=== PATIENT | male | born 1965 | race Caucasian/White ===

== ENCOUNTER → 2023-04-11 | Emergency (ER) | payer MEDICARE ==
[~2023-04-11] MED LIST: HYDROCODONE/APAP 10/325 TAB ONE; KETOROLAC 30 MG/ML INJ ONE; dexAMETHasone 10 MG/ML VIAL ONE
--- OUTSIDE RECORDS SUMMARY | 2023-04-11 14:05 | XMS REPORT | Continuity of Care Document ---
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 as needed for Cough. [facility] benzonatate (TESSALON PERLES) 100 mg capsule 3-0 3- 00:00: 00 Yes [id number] 100mg Take 1 capsule by mouth every 8 (eight) hours as needed for Cough. [facility] benzonatate (TESSALON PERLES) 100 mg capsule 3-0 3- 00:00: 00 Yes [id number] 100mg Take 1 capsule by mouth every 8 (eight) hours as needed for Cough. [facility] benzonatate (TESSALON PERLES) 100 mg capsule 3-0 3 00:00: 00 Yes [id number] 100mg Take 1 capsule by mouth every 8 (eight) hours as needed for Cough. [facility] benzonatate (TESSALON PERLES) 100 mg capsule 3-0 3 00:00: 00 Yes [id number] 100mg Take 1 capsule by mouth every 8 (eight) hours as needed for Cough. [facility] benzonatate (TESSALON PERLES) 100 mg capsule 3-0 3 00:00: 00 Yes [id number] 100mg Take 1 capsule by mouth every 8 (eight) hours as needed for Cough. [facility] benzonatate (TESSALON PERLES) 100 mg capsule 3-0 3 00:00: 00 Yes [id number] 100mg Take 1 capsule by mouth every 8 (eight) hours as needed for Cough. [facility] benzonatate (TESSALON PERLES) 100 mg capsule 3-0 3- 00:00: 00 Yes [id number] 100mg Take 1 capsule by mouth every 8 (eight) hours as needed for Cough. [facility] benzonatate (TESSALON PERLES) 100 mg capsule 3-0 3-07 00:00: 00 Yes [id number] 100mg Take 1 capsule by mouth every 8 (eight) hours as needed for Cough. [facility] benzonatate (TESSALON PERLES) 100 mg capsule 3 00:00: 00 Yes [id number] 100mg Take 1 capsule by mouth every 8 (eight) hours as needed for Cough. [facility] benzonatate (TESSALON PERLES) 100 mg capsule 04-25 00:00: 00 Yes [id number] 100mg Take 1 capsule by mouth every 8 (eight) hours as needed for Cough. [facility] azithromyci n (ZITHROMAX Z-LAZARO) 250 mg tablet 04-25 00:00: 00 08-25 00:00 :00 No [id number] 250mg Take 1 tablet by mouth SEE-INSTRU CTIONS. [facility] methylPREDN ISolone (MEDROL, LAZARO,) 4 mg tablets 04-25 00:00: 00 08-25 00:00 :00 No [id number] Take by mouth SEE-INSTRU CTIONS. follow package directions [facility] azithromyci n (ZITHROMAX Z-LAZARO) 250 mg tablet 04-25 00:00: 00 08-25 00:00 :00 No [id number] 250mg Take 1 tablet by mouth SEE-INSTRU CTIONS. [facility] methylPREDN ISolone (MEDROL, LAZARO,) 4 mg tablets 04-25 00:00: 00 08-25 00:00 :00 No [id number] Take by mouth SEE-INSTRU CTIONS. follow package directions [facility] meloxicam 15 mg tablet 03-07 00:00: 00 Yes [id number] 15mg Take 1 tablet by mouth in the morning. [facility] meloxicam 15 mg tablet 2022-0 03-07 00:00: 00 Yes [id number] 15mg Take 1 tablet by mouth in the morning. [facility] meloxicam 15 mg tablet 2022-0 03-07 00:00: 00 Yes [id number] 15mg Take 1 tablet by mouth in the morning. [facility] meloxicam 15 mg tablet 0 1-17 00:00: 00 Yes [id number] 15mg Take 1 tablet by mouth in the morning. [facility] 3-0 -17 00:00: 00 Yes [id number] 15mg Take 1 tablet by mouth in the morning. [facility] mg tablet 3-0 17 00:00: 00 Yes [id number] 15mg Take 1 tablet by mouth in the morning. [facility] mg tablet 3-0 17 00:00: 00 Yes [id number] 15mg Take 1 tablet by mouth in the morning. [facility] meloxicam 15 mg tablet 3-0 -17 00:00: 00 Yes [id number] 15mg Take 1 tablet by mouth in the morning. [facility] meloxicam 15 mg tablet 3-0 -17 00:00: 00 Yes [id number] 15mg Take 1 tablet by mouth in the morning. [facility] meloxicam 15 mg tablet 3-0 17 00:00: 00 Yes [id number] 15mg Take 1 tablet by mouth in the morning. [facility] meloxicam 15 mg tablet 3-0 17 00:00: 00 Yes [id number] 15mg Take 1 tablet by mouth in the morning. [facility] meloxicam 15 mg tablet 3-0 17 00:00: 00 Yes [id number] 15mg Take 1 tablet by mouth in the morning. [facility] meloxicam 15 mg tablet 3-0 -17 00:00: 00 Yes [id number] 15mg Take 1 tablet by mouth in the morning. [facility] meloxicam 15 mg tablet 3-0 -17 00:00: 00 Yes [id number] 15mg Take 1 tablet by mouth in the morning. [facility] meloxicam 15 mg tablet 3-0 -17 00:00: 00 Yes [id number] 15mg Take 1 tablet by mouth in the morning. [facility] meloxicam 15 mg tablet 3-0 -17 00:00: 00 Yes [id number] 15mg Take 1 tablet by mouth in the morning. [facility] mg tablet 3-0 -17 00:00: 00 Yes [id number] 15mg Take 1 tablet by mouth in the morning. [facility] meloxicam 15 mg tablet 2022-0 17 00:00: 00 Yes [id number] 15mg Take 1 tablet by mouth in the morning. [facility] mg tablet 3-0 17 00:00: 00 Yes [id number] 15mg Take 1 tablet by mouth in the morning. [facility] mg tablet 3-0 17 00:00: 00 Yes [id number] 15mg Take 1 tablet by mouth in the morning. [facility] meloxicam 15 mg tablet 2022-0 -17 00:00: 00 Yes [id number] 15mg Take 1 tablet by mouth in the morning. [facility] meloxicam 15 mg tablet 3-0 17 00:00: 00 Yes [id number] 15mg Take 1 tablet by mouth in the morning. [facility] meloxicam 15 mg tablet 3-0 17 00:00: 00 Yes [id number] 15mg Take 1 tablet by mouth in the morning. [facility] meloxicam 15 mg tablet 3-0 17 00:00: 00 Yes [id number] 15mg Take 1 tablet by mouth in the morning. [facility] meloxicam 15 mg tablet 3-0 17 00:00: 00 Yes [id number] 15mg Take 1 tablet by mouth in the morning. [facility] meloxicam 15 mg tablet 3-0 17 00:00: 00 Yes [id number] 15mg Take 1 tablet by mouth in the morning. [facility] meloxicam 15 mg tablet 3-0 -17 00:00: 00 Yes [id number] 15mg Take 1 tablet by mouth in the morning. [facility] meloxicam 15 mg tablet 3-0 -17 00:00: 00 Yes [id number] 15mg Take 1 tablet by mouth in the morning. [facility] meloxicam 15 mg tablet 0 17 00:00: 00 09-27 00:00 :00 No [id number] 15mg Take 1 tablet by mouth in the morning. [facility] meloxicam 15 mg tablet 0 17 00:00: 00 09-27 00:00 :00 No [id number] 15mg Take 1 tablet by mouth in the morning. [facility] meloxicam 15 mg tablet 0 03-07 00:00: 00 09-27 00:00 :00 No [id number] 15mg Take 1 tablet by mouth in the morning. [facility] meloxicam 15 mg tablet 03-07 00:00: 00 09-27 00:00 :00 No [id number] 15mg Take 1 tablet by mouth in the morning. [facility] gabapentin 800 mg tablet 03-07 00:00: 00 08-04 00:00 :00 No [id number] 800mg Take 1 tablet by mouth in the morning and 1 tablet at noon and 1 tablet in the evening. Do all this for 30 days. [facility] gabapentin 800 mg tablet 0 03-07 00:00: 00 08-04 00:00 :00 No [id number] 800mg Take 1 tablet by mouth in the morning and 1 tablet at noon and 1 tablet in the evening. Do all this for 30 days. [facility] gabapentin 800 mg tablet 0 17 00:00: 00 04-07 05:59 :00 No [id number] 800mg Take 1 tablet by mouth in the morning and 1 tablet at noon and 1 tablet in the evening. Do all this for 30 days. [facility] gabapentin 800 mg tablet 0 17 00:00: 00 04-07 05:59 :00 No [id number] 800mg Take 1 tablet by mouth in the morning and 1 tablet at noon and 1 tablet in the evening. Do all this for 30 days. [facility] gabapentin 800 mg tablet 0 117 00:00: 00 04-07 05:59 :00 No [id number] 800mg Take 1 tablet by mouth in the morning and 1 tablet at noon and 1 tablet in the evening. Do all this for 30 days. [facility] gabapentin 800 mg tablet 2022-0 1-17 00:00: 00 04-07 05:59 :00 No [id number] 800mg Take 1 tablet by mouth in the morning and 1 tablet at noon and 1 tablet in the evening. Do all this for 30 days. [facility] gabapentin 800 mg tablet 2022-0 17 00:00: 00 04-07 05:59 :00 No [id number] 800mg Take 1 tablet by mouth in the morning and 1 tablet at noon and 1 tablet in the evening. Do all this for 30 days. [facility] gabapentin 800 mg tablet 2022-0 17 00:00: 00 04-07 05:59 :00 No [id number] 800mg Take 1 tablet by mouth in the morning and 1 tablet at noon and 1 tablet in the evening. Do all this for 30 days. [facility] gabapentin 800 mg tablet 2022-0 17 00:00: 00 04-07 05:59 :00 No [id number] 800mg Take 1 tablet by mouth in the morning and 1 tablet at noon and 1 tablet in the evening. Do all this for 30 days. [facility] gabapentin 800 mg tablet 2022-0 17 00:00: 00 04-07 05:59 :00 No [id number] 800mg Take 1 tablet by mouth in the morning and 1 tablet at noon and 1 tablet in the evening. Do all this for 30 days. [facility] gabapentin 800 mg tablet 2022-0 17 00:00: 00 04-07 05:59 :00 No [id number] 800mg Take 1 tablet by mouth in the morning and 1 tablet at noon and 1 tablet in the evening. Do all this for 30 days. [facility] gabapentin 800 mg tablet 3-0 17 00:00: 00 04-07 05:59 :00 No [id number] 800mg Take 1 tablet by mouth in the morning and 1 tablet at noon and 1 tablet in the evening. Do all this for 30 days. [facility] gabapentin 800 mg tablet 03-07 00:00: 00 04-07 05:59 :00 No [id number] 800mg Take 1 tablet by mouth in the morning and 1 tablet at noon and 1 tablet in the evening. Do all this for 30 days. [facility] gabapentin 800 mg tablet 03-07 00:00: 00 04-07 05:59 :00 No [id number] 800mg Take 1 tablet by mouth in the morning and 1 tablet at noon and 1 tablet in the evening. Do all this for 30 days. [facility] gabapentin 800 mg tablet 03-07 00:00: 00 04-07 05:59 :00 No [id number] 800mg Take 1 tablet by mouth in the morning and 1 tablet at noon and 1 tablet in the evening. Do all this for 30 days. [facility] albuterol 90 mcg/actuati on inhaler 02-24 00:00: 00 Yes INHALE 2 PUFFS BY MOUTH EVERY 6 HOURS NEEDED FOR WHEEZING OR SHORTNESS OF BREATH [facility] albuterol 90 mcg/actuati on inhaler 02-24 00:00: 00 Yes INHALE 2 PUFFS BY MOUTH EVERY 6 HOURS NEEDED FOR WHEEZING OR SHORTNESS OF BREATH [facility] albuterol 90 mcg/actuati on inhaler - 00:00: 00 Yes INHALE 2 PUFFS BY MOUTH EVERY 6 HOURS NEEDED FOR WHEEZING OR SHORTNESS OF BREATH [facility] albuterol 90 mcg/actuati on inhaler 0 - 00:00: 00 Yes INHALE 2 PUFFS BY MOUTH EVERY 6 HOURS NEEDED FOR WHEEZING OR SHORTNESS OF BREATH [facility] albuterol 90 mcg/actuati on inhaler 0 02-24 00:00: 00 Yes INHALE 2 PUFFS BY MOUTH EVERY 6 HOURS NEEDED FOR WHEEZING OR SHORTNESS OF BREATH [facility] albuterol 90 mcg/actuati on inhaler - 00:00: 00 Yes INHALE 2 PUFFS BY MOUTH EVERY 6 HOURS NEEDED FOR WHEEZING OR SHORTNESS OF BREATH [facility] albuterol 90 mcg/actuati on inhaler 1- 00:00: 00 Yes INHALE 2 PUFFS BY MOUTH EVERY 6 HOURS NEEDED FOR WHEEZING OR SHORTNESS OF BREATH [facility] albuterol 90 mcg/actuati on inhaler 1- 00:00: 00 Yes INHALE 2 PUFFS BY MOUTH EVERY 6 HOURS NEEDED FOR WHEEZING OR SHORTNESS OF BREATH [facility] albuterol 90 mcg/actuati on inhaler 1- 00:00: 00 Yes INHALE 2 PUFFS BY MOUTH EVERY 6 HOURS NEEDED FOR WHEEZING OR SHORTNESS OF BREATH [facility] albuterol 90 mcg/actuati on inhaler - 00:00: 00 Yes INHALE 2 PUFFS BY MOUTH EVERY 6 HOURS NEEDED FOR WHEEZING OR SHORTNESS OF BREATH [facility] albuterol 90 mcg/actuati on inhaler - 00:00: 00 Yes INHALE 2 PUFFS BY MOUTH EVERY 6 HOURS NEEDED FOR WHEEZING OR SHORTNESS OF BREATH [facility] albuterol 90 mcg/actuati on inhaler 1- 00:00: 00 Yes INHALE 2 PUFFS BY MOUTH EVERY 6 HOURS NEEDED FOR WHEEZING OR SHORTNESS OF BREATH [facility] albuterol 90 mcg/actuati on inhaler 1- 00:00: 00 Yes INHALE 2 PUFFS BY MOUTH EVERY 6 HOURS NEEDED FOR WHEEZING OR SHORTNESS OF BREATH [facility] albuterol 90 mcg/actuati on inhaler 1- 00:00: 00 Yes INHALE 2 PUFFS BY MOUTH EVERY 6 HOURS NEEDED FOR WHEEZING OR SHORTNESS OF BREATH [facility] albuterol 90 mcg/actuati on inhaler 1- 00:00: 00 Yes INHALE 2 PUFFS BY MOUTH EVERY 6 HOURS NEEDED FOR WHEEZING OR SHORTNESS OF BREATH [facility] albuterol 90 mcg/actuati on inhaler 1-06 00:00: 00 Yes INHALE 2 PUFFS BY MOUTH EVERY 6 HOURS NEEDED FOR WHEEZING OR SHORTNESS OF BREATH [facility] albuterol 90 mcg/actuati on inhaler 1- 00:00: 00 Yes INHALE 2 PUFFS BY MOUTH EVERY 6 HOURS NEEDED FOR WHEEZING OR SHORTNESS OF BREATH [facility] albuterol 90 mcg/actuati on inhaler 1- 00:00: 00 Yes INHALE 2 PUFFS BY MOUTH EVERY 6 HOURS NEEDED FOR WHEEZING OR SHORTNESS OF BREATH [facility] albuterol 90 mcg/actuati on inhaler 1- 00:00: 00 Yes INHALE 2 PUFFS BY MOUTH EVERY 6 HOURS NEEDED FOR WHEEZING OR SHORTNESS OF BREATH [facility] albuterol 90 mcg/actuati on inhaler - 00:00: 00 Yes INHALE 2 PUFFS BY MOUTH EVERY 6 HOURS NEEDED FOR WHEEZING OR SHORTNESS OF BREATH [facility] albuterol 90 mcg/actuati on inhaler - 00:00: 00 Yes INHALE 2 PUFFS BY MOUTH EVERY 6 HOURS NEEDED FOR WHEEZING OR SHORTNESS OF BREATH [facility] albuterol 90 mcg/actuati on inhaler 1- 00:00: 00 Yes INHALE 2 PUFFS BY MOUTH EVERY 6 HOURS NEEDED FOR WHEEZING OR SHORTNESS OF BREATH [facility] albuterol 90 mcg/actuati on inhaler 1- 00:00: 00 Yes INHALE 2 PUFFS BY MOUTH EVERY 6 HOURS NEEDED FOR WHEEZING OR SHORTNESS OF BREATH [facility] albuterol 90 mcg/actuati on inhaler 1- 00:00: 00 Yes INHALE 2 PUFFS BY MOUTH EVERY 6 HOURS NEEDED FOR WHEEZING OR SHORTNESS OF BREATH [facility] albuterol 90 mcg/actuati on inhaler 1- 00:00: 00 Yes INHALE 2 PUFFS BY MOUTH EVERY 6 HOURS NEEDED FOR WHEEZING OR SHORTNESS OF BREATH [facility] albuterol 90 mcg/actuati on inhaler 1-06 00:00: 00 Yes INHALE 2 PUFFS BY MOUTH EVERY 6 HOURS NEEDED FOR WHEEZING OR SHORTNESS OF BREATH [facility] albuterol 90 mcg/actuati on inhaler 1- 00:00: 00 Yes INHALE 2 PUFFS BY MOUTH EVERY 6 HOURS NEEDED FOR WHEEZING OR SHORTNESS OF BREATH [facility] albuterol 90 mcg/actuati on inhaler 1- 00:00: 00 Yes INHALE 2 PUFFS BY MOUTH EVERY 6 HOURS NEEDED FOR WHEEZING OR SHORTNESS OF BREATH [facility] albuterol 90 mcg/actuati on inhaler 1- 00:00: 00 Yes INHALE 2 PUFFS BY MOUTH EVERY 6 HOURS NEEDED FOR WHEEZING OR SHORTNESS OF BREATH [facility] albuterol 90 mcg/actuati on inhaler - 00:00: 00 Yes INHALE 2 PUFFS BY MOUTH EVERY 6 HOURS NEEDED FOR WHEEZING OR SHORTNESS OF BREATH [facility] albuterol 90 mcg/actuati on inhaler - 00:00: 00 Yes INHALE 2 PUFFS BY MOUTH EVERY 6 HOURS NEEDED FOR WHEEZING OR SHORTNESS OF BREATH [facility] albuterol 90 mcg/actuati on inhaler 1- 00:00: 00 Yes INHALE 2 PUFFS BY MOUTH EVERY 6 HOURS NEEDED FOR WHEEZING OR SHORTNESS OF BREATH [facility] albuterol 90 mcg/actuati on inhaler 1- 00:00: 00 Yes INHALE 2 PUFFS BY MOUTH EVERY 6 HOURS NEEDED FOR WHEEZING OR SHORTNESS OF BREATH [facility] albuterol 90 mcg/actuati on inhaler 1- 00:00: 00 Yes INHALE 2 PUFFS BY MOUTH EVERY 6 HOURS NEEDED FOR WHEEZING OR SHORTNESS OF BREATH [facility] albuterol 90 mcg/actuati on inhaler 1- 00:00: 00 Yes INHALE 2 PUFFS BY MOUTH EVERY 6 HOURS NEEDED FOR WHEEZING OR SHORTNESS OF BREATH [facility] albuterol 90 mcg/actuati on inhaler 02-24 00:00: 00 Yes INHALE 2 PUFFS BY MOUTH EVERY 6 HOURS NEEDED FOR WHEEZING OR SHORTNESS OF BREATH [facility] albuterol 90 mcg/actuati on inhaler - 00:00: 00 Yes INHALE 2 PUFFS BY MOUTH EVERY 6 HOURS NEEDED FOR WHEEZING OR SHORTNESS OF BREATH [facility] albuterol 90 mcg/actuati on inhaler 02-24 00:00: 00 Yes INHALE 2 PUFFS BY MOUTH EVERY 6 HOURS NEEDED FOR WHEEZING OR SHORTNESS OF BREATH [facility] albuterol 90 mcg/actuati on inhaler 02-24 00:00: 00 Yes INHALE 2 PUFFS BY MOUTH EVERY 6 HOURS NEEDED FOR WHEEZING OR SHORTNESS OF BREATH [facility] albuterol 90 mcg/actuati on inhaler 02-24 00:00: 00 Yes INHALE 2 PUFFS BY MOUTH EVERY 6 HOURS NEEDED FOR WHEEZING OR [facility]ATH [facility] 02-24 00:00: 00 Yes INHALE 2 PUFFS BY MOUTH EVERY 6 HOURS NEEDED FOR WHEEZING OR SHORTNESS [facility] BREATH [facility]5 [facility] /3 mL (0.083 %) nebulizer solution 2021-02 00:00: 00 Yes [id number] 2.5mg Inhale 3 mL every 4 (four) hours as needed for Wheezing or Shortness of Breath. [facility] albuterol 2.5 mg /3 mL (0.083 %) nebulizer solution 2021-02 00:00: 00 Yes [id number] 2.5mg Inhale 3 mL every 4 (four) hours as needed for Wheezing or Shortness of Breath. [facility] albuterol 2.5 mg /3 mL (0.083 %) nebulizer solution 2021-02 00:00: 00 Yes [id number] 2.5mg Inhale 3 mL every 4 (four) hours as needed for Wheezing or Shortness of Breath. [facility] albuterol 2.5 mg /3 mL (0.083 %) nebulizer solution 2021-02 00:00: 00 Yes [id number] 2.5mg Inhale 3 mL every 4 (four) hours as needed for Wheezing or Shortness of Breath. [facility] albuterol 2.5 mg /3 mL (0.083 %) nebulizer solution 2021-02 00:00: 00 Yes [id number] 2.5mg Inhale 3 mL every 4 (four) hours as needed for Wheezing or Shortness of Breath. [facility] albuterol 2.5 mg /3 mL (0.083 %) nebulizer solution 2021-02 00:00: 00 Yes [id number] 2.5mg Inhale 3 mL every 4 (four) hours as needed for Wheezing or Shortness of Breath. [facility] albuterol 2.5 mg /3 mL (0.083 %) nebulizer solution 2021-02 00:00: 00 Yes [id number] 2.5mg Inhale 3 mL every 4 (four) hours as needed for Wheezing or Shortness of Breath. [facility] albuterol 2.5 mg /3 mL (0.083 %) nebulizer solution 2021-02 00:00: 00 Yes [id number] 2.5mg Inhale 3 mL every 4 (four) hours as needed for Wheezing or Shortness of Breath. [facility] albuterol 2.5 mg /3 mL (0.083 %) nebulizer solution 2021-02 00:00: 00 Yes [id number] 2.5mg Inhale 3 mL every 4 (four) hours as needed for Wheezing or Shortness of Breath. [facility] albuterol 2.5 mg /3 mL (0.083 %) nebulizer solution 2021-02 00:00: 00 Yes [id number] 2.5mg Inhale 3 mL every 4 (four) hours as needed for Wheezing or Shortness of Breath. [facility] albuterol 2.5 mg /3 mL (0.083 %) nebulizer solution 2021-02 00:00: 00 Yes [id number] 2.5mg Inhale 3 mL every 4 (four) hours as needed for Wheezing or Shortness of Breath. [facility] albuterol 2.5 mg /3 mL (0.083 %) nebulizer solution 2021-02 00:00: 00 Yes [id number] 2.5mg Inhale 3 mL every 4 (four) hours as needed for Wheezing or Shortness of Breath. [facility] albuterol 2.5 mg /3 mL (0.083 %) nebulizer solution 2021-02 00:00: 00 Yes [id number] 2.5mg Inhale 3 mL every 4 (four) hours as needed for Wheezing or Shortness of Breath. [facility] albuterol 2.5 mg /3 mL (0.083 %) nebulizer solution 2021-02 00:00: 00 Yes [id number] 2.5mg Inhale 3 mL every 4 (four) hours as needed for Wheezing or Shortness of Breath. [facility] albuterol 2.5 mg /3 mL (0.083 %) nebulizer solution 2021-02 00:00: 00 Yes [id number] 2.5mg Inhale 3 mL every 4 (four) hours as needed for Wheezing or Shortness of Breath. [facility] albuterol 2.5 mg /3 mL (0.083 %) nebulizer solution 2021-02 00:00: 00 Yes [id number] 2.5mg Inhale 3 mL every 4 (four) hours as needed for Wheezing or Shortness of Breath. [facility] albuterol 2.5 mg /3 mL (0.083 %) nebulizer solution 2021-02 00:00: 00 Yes [id number] 2.5mg Inhale 3 mL every 4 (four) hours as needed for Wheezing or Shortness of Breath. [facility] albuterol 2.5 mg /3 mL (0.083 %) nebulizer solution 2021-02 00:00: 00 Yes [id number] 2.5mg Inhale 3 mL every 4 (four) hours as needed for Wheezing or Shortness of Breath. [facility] albuterol 2.5 mg /3 mL (0.083 %) nebulizer solution 2021-02 00:00: 00 Yes [id number] 2.5mg Inhale 3 mL every 4 (four) hours as needed for Wheezing or Shortness of Breath. [facility] albuterol 2.5 mg /3 mL (0.083 %) nebulizer solution 2021-02 00:00: 00 Yes [id number] 2.5mg Inhale 3 mL every 4 (four) hours as needed for Wheezing or Shortness of Breath. [facility] albuterol 2.5 mg /3 mL (0.083 %) nebulizer solution 2021-02 00:00: 00 Yes [id number] 2.5mg Inhale 3 mL every 4 (four) hours as needed for Wheezing or Shortness of Breath. [facility] albuterol 2.5 mg /3 mL (0.083 %) nebulizer solution 2021-02 00:00: 00 Yes [id number] 2.5mg Inhale 3 mL every 4 (four) hours as needed for Wheezing or Shortness of Breath. [facility] albuterol 2.5 mg /3 mL (0.083 %) nebulizer solution 2021-02 00:00: 00 Yes [id number] 2.5mg Inhale 3 mL every 4 (four) hours as needed for Wheezing or Shortness of Breath. [facility] albuterol 2.5 mg /3 mL (0.083 %) nebulizer solution 2021-02 00:00: 00 Yes [id number] 2.5mg Inhale 3 mL every 4 (four) hours as needed for Wheezing or Shortness of Breath. [facility] albuterol 2.5 mg /3 mL (0.083 %) nebulizer solution 2021-02 00:00: 00 Yes [id number] 2.5mg Inhale 3 mL every 4 (four) hours as needed for Wheezing or Shortness of Breath. [facility] albuterol 2.5 mg /3 mL (0.083 %) nebulizer solution 2021-02 00:00: 00 Yes [id number] 2.5mg Inhale 3 mL every 4 (four) hours as needed for Wheezing or Shortness of Breath. [facility] albuterol 2.5 mg /3 mL (0.083 %) nebulizer solution 2021-02 00:00: 00 Yes [id number] 2.5mg Inhale 3 mL every 4 (four) hours as needed for Wheezing or Shortness of Breath. [facility] albuterol 2.5 mg /3 mL (0.083 %) nebulizer solution 2021-02 00:00: 00 Yes [id number] 2.5mg Inhale 3 mL every 4 (four) hours as needed for Wheezing or Shortness of Breath. [facility] albuterol 2.5 mg /3 mL (0.083 %) nebulizer solution 2021-02 00:00: 00 Yes [id number] 2.5mg Inhale 3 mL every 4 (four) hours as needed for Wheezing or Shortness of Breath. [facility] albuterol 2.5 mg /3 mL (0.083 %) nebulizer solution 2021-02 00:00: 00 Yes [id number] 2.5mg Inhale 3 mL every 4 (four) hours as needed for Wheezing or Shortness of Breath. [facility] albuterol 2.5 mg /3 mL (0.083 %) nebulizer solution 2021-02 00:00: 00 Yes [id number] 2.5mg Inhale 3 mL every 4 (four) hours as needed for Wheezing or Shortness of Breath. [facility] albuterol 2.5 mg /3 mL (0.083 %) nebulizer solution 2021-02 00:00: 00 Yes [id number] 2.5mg Inhale 3 mL every 4 (four) hours as needed for Wheezing or Shortness of Breath. [facility] albuterol 2.5 mg /3 mL (0.083 %) nebulizer solution 2021-02 00:00: 00 Yes [id number] 2.5mg Inhale 3 mL every 4 (four) hours as needed for Wheezing or Shortness of Breath. [facility] albuterol 2.5 mg /3 mL (0.083 %) nebulizer solution 2021-02 00:00: 00 Yes [id number] 2.5mg Inhale 3 mL every 4 (four) hours as needed for Wheezing or Shortness of Breath. [facility] albuterol 2.5 mg /3 mL (0.083 %) nebulizer solution 2021-02 00:00: 00 Yes [id number] 2.5mg Inhale 3 mL every 4 (four) hours as needed for Wheezing or Shortness of Breath. [facility] albuterol 2.5 mg /3 mL (0.083 %) nebulizer solution 2021-02 00:00: 00 Yes [id number] 2.5mg Inhale 3 mL every 4 (four) hours as needed for Wheezing or Shortness of Breath. [facility] albuterol 2.5 mg /3 mL (0.083 %) nebulizer solution 2021-02 00:00: 00 Yes [id number] 2.5mg Inhale 3 mL every 4 (four) hours as needed for Wheezing or Shortness of Breath. [facility] /3 mL (0.083 %) nebulizer solution 2021-02 00:00: 00 Yes [id number] 2.5mg Inhale 3 mL every 4 (four) hours as needed for Wheezing or Shortness of Breath. [facility] albuterol 2.5 mg /3 mL (0.083 %) nebulizer solution 2021-02 00:00: 00 Yes [id number] 2.5mg Inhale 3 mL every 4 (four) hours as needed for Wheezing or Shortness of Breath. [facility] albuterol 2.5 mg /3 mL (0.083 %) nebulizer solution 2021-02 00:00: 00 Yes [id number] 2.5mg Inhale 3 mL every 4 (four) hours as needed for Wheezing or Shortness of Breath. [facility] albuterol 2.5 mg /3 mL (0.083 %) nebulizer solution 2021-02 00:00: 00 Yes [id number] 2.5mg Inhale 3 mL every 4 (four) hours as needed for Wheezing or Shortness of Breath. [facility] albuterol 90 mcg/actuati on inhaler 2021-02 00:00: 00 Yes 2{puff} Inhale 2 Puffs every 6 (six) hours as needed for Wheezing or Shortness of Breath. [facility] albuterol 2.5 mg /3 mL (0.083 %) nebulizer solution 2021-02 00:00: 00 Yes [id number] 2.5mg Inhale 3 mL every 4 (four) hours as needed for Wheezing or Shortness of Breath. [facility] albuterol 90 mcg/actuati on inhaler 2021-02 00:00: 00 Yes 2{puff} Inhale 2 Puffs every 6 (six) hours as needed for Wheezing or Shortness of Breath. [facility] albuterol 2.5 mg /3 mL (0.083 %) nebulizer solution 2021-02 00:00: 00 Yes [id number] 2.5mg Inhale 3 mL every 4 (four) hours as needed for Wheezing or Shortness of Breath. [facility] albuterol 90 mcg/actuati on inhaler 2021-02 00:00: 00 Yes 2{puff} Inhale 2 Puffs every 6 (six) hours as needed for Wheezing or Shortness of Breath. [facility] albuterol 2.5 mg /3 mL (0.083 %) nebulizer solution 2021-02 00:00: 00 Yes [id number] 2.5mg Inhale 3 mL every 4 (four) hours as needed for Wheezing or Shortness of Breath. [facility] albuterol 90 mcg/actuati on inhaler 2021-02 00:00: 00 Yes 2{puff} Inhale 2 Puffs every 6 (six) hours as needed for Wheezing or Shortness of Breath. [facility] albuterol 2.5 mg /3 mL (0.083 %) nebulizer solution 2021-02 00:00: 00 Yes [id number] 2.5mg Inhale 3 mL every 4 (four) hours as needed for Wheezing or Shortness of Breath. [facility] albuterol 90 mcg/actuati on inhaler 2021-02 00:00: 00 Yes 2{puff} Inhale 2 Puffs every 6 (six) hours as needed for Wheezing or Shortness of Breath. [facility] albuterol 2.5 mg /3 mL (0.083 %) nebulizer solution 2021-02 00:00: 00 Yes [id number] 2.5mg Inhale 3 mL every 4 (four) hours as needed for Wheezing or Shortness of Breath. [facility] albuterol 90 mcg/actuati on inhaler 2021-02 00:00: 00 Yes 2{puff} Inhale 2 Puffs every 6 (six) hours as needed for Wheezing or Shortness of Breath. [facility] albuterol 2.5 mg /3 mL (0.083 %) nebulizer solution 2021-02 00:00: 00 Yes [id number] 2.5mg Inhale 3 mL every 4 (four) hours as needed for Wheezing or Shortness of Breath. [facility] albuterol 90 mcg/actuati on inhaler 2021-02 00:00: 00 02-24 00:00 :00 No 2{puff} Inhale 2 Puffs every 6 (six) hours as needed for Wheezing or Shortness of Breath. [facility] meloxicam 15 mg tablet 2021-02 00:00: 00 Yes [id number] 15mg Take 1 tablet by mouth in the morning. [facility] meloxicam 15 mg tablet 2021-02 00:00: 00 Yes [id number] 15mg Take 1 tablet by mouth in the morning. [facility] meloxicam 15 mg tablet 2021-02 00:00: 00 Yes [id number] 15mg Take 1 tablet by mouth in the morning. [facility] 2021-02 00:00: 00 Yes [id number] 15mg Take 1 tablet by mouth in the morning. [facility] meloxicam 15 mg tablet 2021-02 00:00: 00 Yes [id number] 15mg Take 1 tablet by mouth in the morning. [facility] meloxicam 15 mg tablet 2021-02 00:00: 00 Yes [id number] 15mg Take 1 tablet by mouth in the morning. [facility] meloxicam 15 mg tablet 2021-02 00:00: 00 Yes [id number] 15mg Take 1 tablet by mouth in the morning. [facility] meloxicam 15 mg tablet 2021-02 00:00: 00 Yes [id number] 15mg Take 1 tablet by mouth in the morning. [facility] meloxicam 15 mg tablet 2021-02 00:00: 00 Yes [id number] 15mg Take 1 tablet by mouth in the morning. [facility] meloxicam 15 mg tablet 2021-02 00:00: 00 Yes [id number] 15mg Take 1 tablet by mouth in the morning. [facility] meloxicam 15 mg tablet 2021-02 00:00: 00 Yes [id number] 15mg Take 1 tablet by mouth in the morning. [facility] meloxicam 15 mg tablet 2021-02 00:00: 00 03-07 00:00 :00 No [id number] 15mg Take 1 tablet by mouth in the morning. [facility] meloxicam 15 mg tablet 2021-02 00:00: 00 03-07 00:00 :00 No [id number] 15mg Take 1 tablet by mouth in the morning. [facility] meloxicam 15 mg tablet 2021-02 00:00: 00 03-07 00:00 :00 No [id number] 15mg Take 1 tablet by mouth in the morning. [facility] meloxicam 15 mg tablet 2021-02 2 00:00: 00 03-07 00:00 :00 No [id number] 15mg Take 1 tablet by mouth in the morning. [facility] meloxicam 15 mg tablet 2021-02 2- 00:00: 00 03-07 00:00 :00 No [id number] 15mg Take 1 tablet by mouth in the morning. [facility] HOME NEBULIZER PLUS SIDESTREAM Yanna 2021-02 00:00: 00 Yes USE DIRECTED EVERY 6 HOURS NEEDED [facility] HOME NEBULIZER PLUS SIDESTREAM Yanna 2021-02 00:00: 00 Yes USE DIRECTED EVERY 6 HOURS NEEDED [facility] HOME NEBULIZER PLUS SIDESTREAM Yanna 2021-02 00:00: 00 Yes USE DIRECTED EVERY 6 HOURS NEEDED [facility] HOME NEBULIZER PLUS SIDESTREAM Yanna 2021-02 00:00: 00 Yes USE DIRECTED EVERY 6 HOURS NEEDED [facility] HOME NEBULIZER PLUS SIDESTREAM Yanna 2021-02 00:00: 00 Yes USE DIRECTED EVERY 6 HOURS NEEDED [facility] HOME NEBULIZER PLUS SIDESTREAM Yanna 2021-02 00:00: 00 Yes USE DIRECTED EVERY 6 HOURS NEEDED [facility] HOME NEBULIZER PLUS SIDESTREAM Yanna 2021-02 00:00: 00 Yes USE DIRECTED EVERY 6 HOURS NEEDED [facility] HOME NEBULIZER PLUS SIDESTREAM Yanna 2021-02 00:00: 00 Yes USE DIRECTED EVERY 6 HOURS NEEDED [facility] HOME NEBULIZER PLUS SIDESTREAM Yanna 2021-02 00:00: 00 Yes USE DIRECTED EVERY 6 HOURS NEEDED [facility] HOME NEBULIZER PLUS SIDESTREAM Yanna 2021-02 00:00: 00 Yes USE DIRECTED EVERY 6 HOURS NEEDED [facility] HOME NEBULIZER PLUS SIDESTREAM Yanna 2021-02 00:00: 00 Yes USE DIRECTED EVERY 6 HOURS NEEDED [facility] HOME NEBULIZER PLUS SIDESTREAM Yanna 2021-02 00:00: 00 Yes USE DIRECTED EVERY 6 HOURS NEEDED [facility] HOME NEBULIZER PLUS SIDESTREAM Yanna 2021-02 00:00: 00 Yes USE DIRECTED EVERY 6 HOURS NEEDED [facility] HOME NEBULIZER PLUS SIDESTREAM Yanna 2021-02 00:00: 00 Yes USE DIRECTED EVERY 6 HOURS NEEDED [facility] HOME NEBULIZER PLUS SIDESTREAM Yanna 2021-02 00:00: 00 Yes USE DIRECTED EVERY 6 HOURS NEEDED [facility] HOME NEBULIZER PLUS SIDESTREAM Yanna 2021-02 00:00: 00 Yes USE DIRECTED EVERY 6 HOURS NEEDED [facility] HOME NEBULIZER PLUS SIDESTREAM Yanna 2021-02 00:00: 00 Yes USE DIRECTED EVERY 6 HOURS NEEDED [facility] HOME NEBULIZER PLUS SIDESTREAM Yanna 2021-02 00:00: 00 Yes USE DIRECTED EVERY 6 HOURS NEEDED [facility] HOME NEBULIZER PLUS SIDESTREAM Yanna 2021-02 00:00: 00 Yes USE DIRECTED EVERY 6 HOURS NEEDED [facility] HOME NEBULIZER PLUS SIDESTREAM Yanna 2021-02 00:00: 00 Yes USE DIRECTED EVERY 6 HOURS NEEDED [facility] HOME NEBULIZER PLUS SIDESTREAM Yanna 2021-02 00:00: 00 Yes USE DIRECTED EVERY 6 HOURS NEEDED [facility] HOME NEBULIZER PLUS SIDESTREAM Yanna 2021-02 00:00: 00 Yes USE DIRECTED EVERY 6 HOURS NEEDED [facility] HOME NEBULIZER PLUS SIDESTREAM Yanna 2021-02 00:00: 00 Yes USE DIRECTED EVERY 6 HOURS NEEDED [facility] HOME NEBULIZER PLUS SIDESTREAM Yanna 2021-02 00:00: 00 Yes USE DIRECTED EVERY 6 HOURS NEEDED [facility] HOME NEBULIZER PLUS SIDESTREAM Yanna 2021-02 00:00: 00 Yes USE DIRECTED EVERY 6 HOURS NEEDED [facility] HOME NEBULIZER PLUS SIDESTREAM Yanna 2021-02 00:00: 00 Yes USE DIRECTED EVERY 6 HOURS NEEDED [facility] HOME NEBULIZER PLUS SIDESTREAM Yanna 2021-02 00:00: 00 Yes USE DIRECTED EVERY 6 HOURS NEEDED [facility] HOME NEBULIZER PLUS SIDESTREAM Yanna 2021-02 00:00: 00 Yes USE DIRECTED EVERY 6 HOURS NEEDED [facility] HOME NEBULIZER PLUS SIDESTREAM Yanna 2021-02 00:00: 00 Yes USE DIRECTED EVERY 6 HOURS NEEDED [facility] HOME NEBULIZER PLUS SIDESTREAM Yanna 2021-02 00:00: 00 Yes USE DIRECTED EVERY 6 HOURS NEEDED [facility] HOME NEBULIZER PLUS SIDESTREAM Yanna 2021-02 00:00: 00 Yes USE DIRECTED EVERY 6 HOURS NEEDED [facility] HOME NEBULIZER PLUS SIDESTREAM Yanna 2021-02 00:00: 00 Yes USE DIRECTED EVERY 6 HOURS NEEDED [facility] HOME NEBULIZER PLUS SIDESTREAM Yanna 2021-02 00:00: 00 Yes USE DIRECTED EVERY 6 HOURS NEEDED [facility] HOME NEBULIZER PLUS SIDESTREAM Yanna 2021-02 00:00: 00 Yes USE DIRECTED EVERY 6 HOURS NEEDED [facility] [place] HOME NEBULIZER PLUS SIDESTREAM Yanna 2021-02 00:00: 00 Yes USE DIRECTED EVERY 6 HOURS NEEDED [facility] HOME NEBULIZER PLUS SIDESTREAM Yanna 2021-02 00:00: 00 Yes USE DIRECTED EVERY 6 HOURS NEEDED [facility] HOME NEBULIZER PLUS SIDESTREAM Yanna 2021-02 00:00: 00 Yes USE DIRECTED EVERY 6 HOURS NEEDED [facility] HOME NEBULIZER PLUS SIDESTREAM Yanna 2021-02 00:00: 00 Yes USE DIRECTED EVERY 6 HOURS NEEDED [facility] HOME NEBULIZER PLUS SIDESTREAM Yanna 2021-02 00:00: 00 Yes USE DIRECTED EVERY 6 HOURS NEEDED [facility] HOME NEBULIZER PLUS SIDESTREAM Yanna 2021-02 00:00: 00 Yes USE DIRECTED EVERY 6 HOURS NEEDED [facility] HOME NEBULIZER PLUS SIDESTREAM Yanna 2021-02 00:00: 00 Yes USE DIRECTED EVERY 6 HOURS NEEDED [facility] [place] HOME NEBULIZER PLUS SIDESTREAM Yanna 2021-02 00:00: 00 Yes USE DIRECTED EVERY 6 HOURS NEEDED [facility] HOME NEBULIZER PLUS SIDESTREAM Yanna 2021-02 00:00: 00 Yes USE DIRECTED EVERY 6 HOURS NEEDED [facility] [place] HOME NEBULIZER PLUS SIDESTREAM Yanna 2021-02 00:00: 00 Yes USE DIRECTED EVERY 6 HOURS NEEDED [facility] [place] HOME NEBULIZER PLUS SIDESTREAM Yanna 2021-02 00:00: 00 Yes USE DIRECTED EVERY 6 HOURS NEEDED [facility] HOME NEBULIZER PLUS SIDESTREAM Yanna 2021-02 00:00: 00 Yes USE DIRECTED EVERY 6 HOURS NEEDED [facility] HOME NEBULIZER PLUS SIDESTREAM Yanna 2021-02 00:00: 00 Yes USE DIRECTED EVERY 6 HOURS NEEDED [facility] HOME NEBULIZER PLUS SIDESTREAM Yanna 2021-02 00:00: 00 Yes USE DIRECTED EVERY 6 HOURS NEEDED [facility] HOME NEBULIZER PLUS SIDESTREAM Yanna 2021-02 00:00: 00 Yes USE DIRECTED EVERY 6 HOURS NEEDED [facility] HOME NEBULIZER PLUS SIDESTREAM Yanna 2021-02 00:00: 00 Yes USE DIRECTED EVERY 6 HOURS NEEDED [facility] HOME NEBULIZER PLUS SIDESTREAM Yanna 2021-02 00:00: 00 Yes USE DIRECTED EVERY 6 HOURS NEEDED [facility] HOME NEBULIZER PLUS SIDESTREAM Yanna 2021-02 00:00: 00 Yes USE DIRECTED EVERY 6 HOURS NEEDED [facility] meloxicam 15 mg tablet 2021-02 00:00: 00 01-30 05:59 :00 No [id number] 15mg Take 1 tablet by mouth in the morning for 30 days. [facility] meloxicam 15 mg tablet 2021-02 00:00: 00 01-30 05:59 :00 No [id number] 15mg Take 1 tablet by mouth in the morning for 30 days. [facility] meloxicam 15 mg tablet 2021-02 00:00: 00 01-30 05:59 :00 No [id number] 15mg Take 1 tablet by mouth in the morning for 30 days. [facility] meloxicam 15 mg tablet 2021-02 00:00: 00 01-30 05:59 :00 No [id number] 15mg Take 1 tablet by mouth in the morning for 30 days. [facility] meloxicam 15 mg tablet 2021-02 00:00: 00 01-30 05:59 :00 No [id number] 15mg Take 1 tablet by mouth in the morning for 30 days. [facility] meloxicam 15 mg tablet 2021-02 00:00: 00 01-30 05:59 :00 No [id number] 15mg Take 1 tablet by mouth in the morning for 30 days. [facility] meloxicam 15 mg tablet 2021-02 00:00: 00 01-30 05:59 :00 No [id number] 15mg Take 1 tablet by mouth in the morning for 30 days. [facility] meloxicam 15 mg tablet 2021-02 00:00: 00 01-27 00:00 :00 No [id number] 15mg Take 1 tablet by mouth in the morning for 30 days. [facility] methylPREDN ISolone (MEDROL, LAZARO,) 4 mg tablets 2021-02 00:00: 00 12-30 05:59 :00 No [id number] Take by mouth SEE-INSTRU CTIONS for 6 days. follow package directions [facility] methylPREDN ISolone (MEDROL, LAZARO,) 4 mg tablets 2021-02 00:00: 00 12-30 05:59 :00 No [id number] Take by mouth SEE-INSTRU CTIONS for 6 days. follow package directions [facility] methylPREDN ISolone (MEDROL, LAZARO,) 4 mg tablets 2021-02 00:00: 00 12-30 05:59 :00 No [id number] Take by mouth SEE-INSTRU CTIONS for 6 days. follow package directions [facility] methylPREDN ISolone (MEDROL, LAZARO,) 4 mg tablets 2021-02 00:00: 00 12-30 05:59 :00 No [id number] Take by mouth SEE-INSTRU CTIONS for 6 days. follow package directions [facility] triamcinolo ne acetonide (KENALOG) injection 40 mg 2021-02 21:00: 00 12-21 21:48 :00 No [id number] 40mg [facility] triamcinolo ne acetonide (KENALOG) injection 40 mg 2021-02 21:00: 00 12-21 21:48 :00 No [id number] 40mg 40 mg, Intramuscu lar, ONCE, 1 dose, On Sun12/21/21 at 1600, Routine [facility] triamcinolo ne acetonide (KENALOG) injection 40 mg 2021-02 21:00: 00 12-21 21:48 :00 No [id number] 40mg [facility] triamcinolo ne acetonide (KENALOG) injection 40 mg 2021-02 21:00: 00 12-21 21:48 :00 No [id number] 40mg 40 mg, Intramuscu lar, ONCE, 1 dose, On Sun12/21/21 at 1600, Routine [facility] ketorolac (TORADOL) injection 30 mg 2021-02 029 01:15: 00 12-17 00:33 :00 No 30mg 30 mg, Slow IV Push, ONCE, 1 dose, On Sun12/16/21 at 2015, MAURA [facility] diazePAM (VALIUM) injection 5 mg 2021-02 00:15: 00 12-17 00:44 :00 No 5mg 5 mg, Slow IV Push, ONCE, 1 dose, On Sun12/16/21 at 1915, STAT [facility] methocarbam oL 500 mg tablet 2021-02 00:00: 00 Yes [id number] 4 1000mg Take 2 tablets by mouth 4 (four) times daily as needed for Pain (scale 4-6). [facility] methocarbam oL 500 mg tablet 2021-02 00:00: 00 Yes [id number] 4 1000mg Take 2 tablets by mouth 4 (four) times daily as needed for Pain (scale 4-6). [facility] methocarbam oL 500 mg tablet 2021-02 00:00: 00 Yes [id number] 4 1000mg Take 2 tablets by mouth 4 (four) times daily as needed for Pain (scale 4-6). [facility] methocarbam oL 500 mg tablet 2021-02 00:00: 00 Yes [id number] 4 1000mg Take 2 tablets by mouth 4 (four) times daily as needed for Pain (scale 4-6). [facility] methocarbam oL 500 mg tablet 2021-02 00:00: 00 Yes [id number] 4 1000mg Take 2 tablets by mouth 4 (four) times daily as needed for Pain (scale 4-6). [facility] methocarbam oL 500 mg tablet 2021-02 00:00: 00 Yes [id number] 4 1000mg Take 2 tablets by mouth 4 (four) times daily as needed for Pain (scale 4-6). [facility] methocarbam oL 500 mg tablet 2021-02 00:00: 00 Yes [id number] 4 1000mg Take 2 tablets by mouth 4 (four) times daily as needed for Pain (scale 4-6). [facility] methocarbam oL 500 mg tablet 2021-02 00:00: 00 Yes [id number] 4 1000mg Take 2 tablets by mouth 4 (four) times daily as needed for Pain (scale 4-6). [facility] methocarbam oL 500 mg tablet 2021-02 028 00:00: 00 Yes [id number] 4 1000mg Take 2 tablets by mouth 4 (four) times daily as needed for Pain (scale 4-6). [facility] methocarbam oL 500 mg tablet 2021-02 028 00:00: 00 Yes [id number] 4 1000mg Take 2 tablets by mouth 4 (four) times daily as needed for Pain (scale 4-6). [facility] methocarbam oL 500 mg tablet 2021-02 0 00:00: 00 Yes [id number] 4 1000mg Take 2 tablets by mouth 4 (four) times daily as needed for Pain (scale 4-6). [facility] methocarbam oL 500 mg tablet 2021-02 0 00:00: 00 Yes [id number] 4 1000mg Take 2 tablets by mouth 4 (four) times daily as needed for Pain (scale 4-6). [facility] methocarbam oL 500 mg tablet 2021-02 0 00:00: 00 Yes [id number] 4 1000mg Take 2 tablets by mouth 4 (four) times daily as needed for Pain (scale 4-6). [facility] methocarbam oL 500 mg tablet 2021-02 0 00:00: 00 Yes [id number] 4 1000mg Take 2 tablets by mouth 4 (four) times daily as needed for Pain (scale 4-6). [facility] methocarbam oL 500 mg tablet 2021-02 0 00:00: 00 Yes [id number] 4 1000mg Take 2 tablets by mouth 4 (four) times daily as needed for Pain (scale 4-6). [facility] methocarbam oL 500 mg tablet 2021- 0-28 00:00: 00 Yes [id number] 4 1000mg Take 2 tablets by mouth 4 (four) times daily as needed for Pain (scale 4-6). [facility] methocarbam oL 500 mg tablet 2021- 0-28 00:00: 00 Yes [id number] 4 1000mg Take 2 tablets by mouth 4 (four) times daily as needed for Pain (scale 4-6). [facility] methocarbam oL 500 mg tablet 2021-02 0 00:00: 00 Yes [id number] 4 1000mg Take 2 tablets by mouth 4 (four) times daily as needed for Pain (scale 4-6). [facility] methocarbam oL 500 mg tablet 2021-02 0 00:00: 00 Yes [id number] 1000mg Take 2 tablets by mouth 4 (four) times daily as needed for Pain (scale 4-6). [facility] methocarbam oL 500 mg tablet 2021-02 0 00:00: 00 Yes [id number] 4 1000mg Take 2 tablets by mouth 4 (four) times daily as needed for Pain (scale 4-6). [facility] methocarbam oL 500 mg tablet 2021-02 0 00:00: 00 Yes [id number] 4 1000mg Take 2 tablets by mouth 4 (four) times daily as needed for Pain (scale 4-6). [facility] methocarbam oL 500 mg tablet 2021-02 00:00: 00 Yes [id number] 4 1000mg Take 2 tablets by mouth 4 (four) times daily as needed for Pain (scale 4-6). [facility] methocarbam oL 500 mg tablet 2021-02 0 00:00: 00 Yes [id number] 4 1000mg Take 2 tablets by mouth 4 (four) times daily as needed for Pain (scale 4-6). [facility] methocarbam oL 500 mg tablet 2021-02 0 00:00: 00 Yes [id number] 4 1000mg Take 2 tablets by mouth 4 (four) times daily as needed for Pain (scale 4-6). [facility] methocarbam oL 500 mg tablet 2021- 0- 00:00: 00 Yes [id number] 4 1000mg Take 2 tablets by mouth 4 (four) times daily as needed for Pain (scale 4-6). [facility] methocarbam oL 500 mg tablet 2021- 0- 00:00: 00 Yes [id number] 4 1000mg Take 2 tablets by mouth 4 (four) times daily as needed for Pain (scale 4-6). [facility] methocarbam oL 500 mg tablet 2021-02 0 00:00: 00 Yes [id number] 4 1000mg Take 2 tablets by mouth 4 (four) times daily as needed for Pain (scale 4-6). [facility] methocarbam oL 500 mg tablet 2021-02 0 00:00: 00 Yes [id number] 4 1000mg Take 2 tablets by mouth 4 (four) times daily as needed for Pain (scale 4-6). [facility] methocarbam oL 500 mg tablet 2021-02 0 00:00: 00 Yes [id number] 4 1000mg Take 2 tablets by mouth 4 (four) times daily as needed for Pain (scale 4-6). [facility] methocarbam oL 500 mg tablet 2021-02 0 00:00: 00 Yes [id number] 4 1000mg Take 2 tablets by mouth 4 (four) times daily as needed for Pain (scale 4-6). [facility] methocarbam oL 500 mg tablet 2021-02 00:00: 00 Yes [id number] 4 1000mg Take 2 tablets by mouth 4 (four) times daily as needed for Pain (scale 4-6). [facility] methocarbam oL 500 mg tablet 2021-02 0 00:00: 00 Yes [id number] 4 1000mg Take 2 tablets by mouth 4 (four) times daily as needed for Pain (scale 4-6). [facility] methocarbam oL 500 mg tablet 2021-02 0 00:00: 00 Yes [id number] 4 1000mg Take 2 tablets by mouth 4 (four) times daily as needed for Pain (scale 4-6). [facility] methocarbam oL 500 mg tablet 2021-02 0- 00:00: 00 Yes [id number] 4 1000mg Take 2 tablets by mouth 4 (four) times daily as needed for Pain (scale 4-6). [facility] methocarbam oL 500 mg tablet 2021- 0-28 00:00: 00 Yes [id number] 4 1000mg Take 2 tablets by mouth 4 (four) times daily as needed for Pain (scale 4-6). [facility] methocarbam oL 500 mg tablet 2021-02 0-28 00:00: 00 Yes [id number] 4 1000mg Take 2 tablets by mouth 4 (four) times daily as needed for Pain (scale 4-6). [facility] methocarbam oL 500 mg tablet 2021-02 0-28 00:00: 00 Yes [id number] 4 1000mg Take 2 tablets by mouth 4 (four) times daily as needed for Pain (scale 4-6). [facility] methocarbam oL 500 mg tablet 2021-02 0- 00:00: 00 Yes [id number] 4 1000mg Take 2 tablets by mouth 4 (four) times daily as needed for Pain (scale 4-6). [facility] methocarbam oL 500 mg tablet 2021-02 0- 00:00: 00 Yes [id number] 4 1000mg Take 2 tablets by mouth 4 (four) times daily as needed for Pain (scale 4-6). [facility] methocarbam oL 500 mg tablet 2021-02 0 00:00: 00 Yes [id number] 4 1000mg Take 2 tablets by mouth 4 (four) times daily as needed for Pain (scale 4-6). [facility] methocarbam oL 500 mg tablet 2021-02 0- 00:00: 00 Yes [id number] 4 1000mg Take 2 tablets by mouth 4 (four) times daily as needed for Pain (scale 4-6). [facility] methocarbam oL 500 mg tablet 2021-02 0- 00:00: 00 Yes [id number] 4 1000mg Take 2 tablets by mouth 4 (four) times daily as needed for Pain (scale 4-6). [facility] methocarbam oL 500 mg tablet 2021-02 0- 00:00: 00 08-25 00:00 :00 No [id number] 4 1000mg Take 2 tablets by mouth 4 (four) times daily as needed for Pain (scale 4-6). [facility] methocarbam oL 500 mg tablet 2021-02 0-28 00:00: 00 08-25 00:00 :00 No [id number] 4 1000mg Take 2 tablets by mouth 4 (four) times daily as needed for Pain (scale 4-6). [facility] methocarbam oL 500 mg tablet 2021-02 0- 00:00: 00 08-25 00:00 :00 No [id number] 4 1000mg Take 2 tablets by mouth 4 (four) times daily as needed for Pain (scale 4-6). [facility] methocarbam oL 500 mg tablet 2021-02- 00:00: 00 08-25 00:00 :00 No [id number] 4 1000mg Take 2 tablets by mouth 4 (four) times daily as needed for Pain (scale 4-6). [facility] amLODIPine 5 mg tablet 2021-02 16:04: 53 12-05 00:00 :00 No 5mg Take 5 mg by mouth in the morning. [facility] gabapentin 600 mg tablet 2021-02 16:04: 53 12-05 00:00 :00 No 600mg Take 600 mg by mouth in the morning and 600 mg at noon and 600 mg in the evening. [facility] fluticasone -umeclidin- vilanter (TRELEGY ELLIPTA) 200-62.5-25 mcg DsDv 2021-02 16:04: 53 12-05 00:00 :00 No 1{puff} Inhale 1 Puff daily. [facility] amLODIPine 5 mg tablet 2021-02 16:04: 53 12-05 00:00 :00 No 5mg Take 5 mg by mouth in the morning. [facility] gabapentin 600 mg tablet 2021-02 16:04: 53 12-05 00:00 :00 No 600mg Take 600 mg by mouth in the morning and 600 mg at noon and 600 mg in the evening. [facility] fluticasone -umeclidin- vilanter (TRELEGY ELLIPTA) 200-62.5-25 mcg DsDv 2021-02 16:04: 53 12-05 00:00 :00 No 1{puff} Inhale 1 Puff daily. [facility] amLODIPine 5 mg tablet 2021-02 16:04: 53 12-05 00:00 :00 No 5mg Take 5 mg by mouth in the morning. [facility] gabapentin 600 mg tablet 2021-02 16:04: 53 12-05 00:00 :00 No 600mg Take 600 mg by mouth in the morning and 600 mg at noon and 600 mg in the evening. [facility] fluticasone -umeclidin- vilanter (TRELEGY ELLIPTA) 200-62.5-25 mcg DsDv 2021-02 16:04: 53 12-05 00:00 :00 No 1{puff} Inhale 1 Puff daily. [facility] famotidine 40 mg tablet 2021-02 00:00: 00 Yes [id number] 40mg Take 1 tablet by mouth in the morning. [facility] amLODIPine 5 mg tablet 2021-02 00:00: 00 Yes [id number] 5mg Take 1 tablet by mouth in the morning. [facility] fluticasone -umeclidin- vilanter (TRELEGY ELLIPTA) 200-62.5-25 mcg DsDv 2021-02 00:00: 00 Yes [id number] 1{puff} Inhale 1 Puff daily. [facility] ibuprofen 800 mg tablet 2021-02 00:00: 00 Yes [id number] 800mg Take 1 tablet by mouth in the morning and 1 tablet in the evening. Take with meals. [facility] gabapentin 600 mg tablet 2021-02 00:00: 00 Yes [id number] 600mg Take 1 tablet by mouth in the morning and 1 tablet at noon and 1 tablet in the evening. [facility] famotidine 40 mg tablet 2021-02 00:00: 00 Yes [id number] 40mg Take 1 tablet by mouth in the morning. [facility] amLODIPine 5 mg tablet 2021-02 00:00: 00 Yes [id number] 5mg Take 1 tablet by mouth in the morning. [facility] fluticasone -umeclidin- vilanter (TRELEGY ELLIPTA) 200-62.5-25 mcg DsDv 2021-02 00:00: 00 Yes [id number] 1{puff} Inhale 1 Puff daily. [facility] ibuprofen 800 mg tablet 2021-02 00:00: 00 Yes [id number] 800mg Take 1 tablet by mouth in the morning and 1 tablet in the evening. Take with meals. [facility] gabapentin 600 mg tablet 2021-02 00:00: 00 Yes [id number] 600mg Take 1 tablet by mouth in the morning and 1 tablet at noon and 1 tablet in the evening. [facility] famotidine 40 mg tablet 2021-02 00:00: 00 Yes [id number] 40mg Take 1 tablet by mouth in the morning. [facility] amLODIPine 5 mg tablet 2021-02 00:00: 00 Yes [id number] 5mg Take 1 tablet by mouth in the morning. [facility] fluticasone -umeclidin- vilanter (TRELEGY ELLIPTA) 200-62.5-25 mcg DsDv 2021-02 00:00: 00 Yes [id number] 1{puff} Inhale 1 Puff daily. [facility] ibuprofen 800 mg tablet 2021-02 00:00: 00 Yes [id number] 800mg Take 1 tablet by mouth in the morning and 1 tablet in the evening. Take with meals. [facility] gabapentin 600 mg tablet 2021-02 00:00: 00 Yes [id number] 600mg Take 1 tablet by mouth in the morning and 1 tablet at noon and 1 tablet in the evening. [facility] famotidine 40 mg tablet 2021-02 00:00: 00 Yes [id number] 40mg Take 1 tablet by mouth in the morning. [facility] amLODIPine 5 mg tablet 2021-02 00:00: 00 Yes [id number] 5mg Take 1 tablet by mouth in the morning. [facility] fluticasone -umeclidin- vilanter (TRELEGY ELLIPTA) 200-62.5-25 mcg DsDv 2021-02 0 00:00: 00 Yes [id number] 1{puff} Inhale 1 Puff daily. [facility] ibuprofen 800 mg tablet 2021-02 0 00:00: 00 Yes [id number] 800mg Take 1 tablet by mouth in the morning and 1 tablet in the evening. Take with meals. [facility] gabapentin 600 mg tablet 2021-02 0 00:00: 00 Yes [id number] 600mg Take 1 tablet by mouth in the morning and 1 tablet at noon and 1 tablet in the evening. [facility] famotidine 40 mg tablet 2021-02 00:00: 00 Yes [id number] 40mg Take 1 tablet by mouth in the morning. [facility] amLODIPine 5 mg tablet 2021-02 00:00: 00 Yes [id number] 5mg Take 1 tablet by mouth in the morning. [facility] fluticasone -umeclidin- vilanter (TRELEGY ELLIPTA) 200-62.5-25 mcg DsDv 2021-02 0 00:00: 00 Yes [id number] 1{puff} Inhale 1 Puff daily. [facility] famotidine 40 mg tablet 2021-02 00:00: 00 Yes [id number] 40mg Take 1 tablet by mouth in the morning. [facility] amLODIPine 5 mg tablet 2021-02 0 00:00: 00 Yes [id number] 5mg Take 1 tablet by mouth in the morning. [facility] fluticasone -umeclidin- vilanter (TRELEGY ELLIPTA) 200-62.5-25 mcg DsDv 2021-02 0 00:00: 00 Yes [id number] 1{puff} Inhale 1 Puff daily. [facility] famotidine 40 mg tablet 2021-02 0 00:00: 00 Yes [id number] 40mg Take 1 tablet by mouth in the morning. [facility] amLODIPine 5 mg tablet 2021-02 0-17 00:00: 00 Yes [id number] 5mg Take 1 tablet by mouth in the morning. [facility] fluticasone -umeclidin- vilanter (TRELEGY ELLIPTA) 200-62.5-25 mcg DsDv 2021-02 0-17 00:00: 00 Yes [id number] 1{puff} Inhale 1 Puff daily. [facility] famotidine 40 mg tablet 2021-02 017 00:00: 00 Yes [id number] 40mg Take 1 tablet by mouth in the morning. [facility] amLODIPine 5 mg tablet 2021-02 0 00:00: 00 Yes [id number] 5mg Take 1 tablet by mouth in the morning. [facility] fluticasone -umeclidin- vilanter (TRELEGY ELLIPTA) 200-62.5-25 mcg DsDv 2021-02 017 00:00: 00 Yes [id number] 1{puff} Inhale 1 Puff daily. [facility] famotidine 40 mg tablet 2021-02 017 00:00: 00 Yes [id number] 40mg Take 1 tablet by mouth in the morning. [facility] amLODIPine 5 mg tablet 2021-02 0 00:00: 00 Yes [id number] 5mg Take 1 tablet by mouth in the morning. [facility] fluticasone -umeclidin- vilanter (TRELEGY ELLIPTA) 200-62.5-25 mcg DsDv 2021-02 017 00:00: 00 Yes [id number] 1{puff} Inhale 1 Puff daily. [facility] famotidine 40 mg tablet 2021-02 0-17 00:00: 00 Yes [id number] 40mg Take 1 tablet by mouth in the morning. [facility] amLODIPine 5 mg tablet 2021-02 0-17 00:00: 00 Yes [id number] 5mg Take 1 tablet by mouth in the morning. [facility] fluticasone -umeclidin- vilanter (TRELEGY ELLIPTA) 200-62.5-25 mcg DsDv 2021-02 017 00:00: 00 Yes [id number] 1{puff} Inhale 1 Puff daily. [facility] famotidine 40 mg tablet 2021-02 0 00:00: 00 Yes [id number] 40mg Take 1 tablet by mouth in the morning. [facility] amLODIPine 5 mg tablet 2021-02 0 00:00: 00 Yes [id number] 5mg Take 1 tablet by mouth in the morning. [facility] fluticasone -umeclidin- vilanter (TRELEGY ELLIPTA) 200-62.5-25 mcg DsDv 2021-02 0 00:00: 00 Yes [id number] 1{puff} Inhale 1 Puff daily. [facility] famotidine 40 mg tablet 2021-02 0 00:00: 00 Yes [id number] 40mg Take 1 tablet by mouth in the morning. [facility] amLODIPine 5 mg tablet 2021-02 00:00: 00 Yes [id number] 5mg Take 1 tablet by mouth in the morning. [facility] fluticasone -umeclidin- vilanter (TRELEGY ELLIPTA) 200-62.5-25 mcg DsDv 2021-02 00:00: 00 Yes [id number] 1{puff} Inhale 1 Puff daily. [facility] famotidine 40 mg tablet 2021-02 0 00:00: 00 Yes [id number] 40mg Take 1 tablet by mouth in the morning. [facility] amLODIPine 5 mg tablet 2021-02 0 00:00: 00 Yes [id number] 5mg Take 1 tablet by mouth in the morning. [facility] fluticasone -umeclidin- vilanter (TRELEGY ELLIPTA) 200-62.5-25 mcg DsDv 2021-02 0 00:00: 00 Yes [id number] 1{puff} Inhale 1 Puff daily. [facility] famotidine 40 mg tablet 2021-02 0-17 00:00: 00 Yes [id number] 40mg Take 1 tablet by mouth in the morning. [facility] amLODIPine 5 mg tablet 2021-02 0-17 00:00: 00 Yes [id number] 5mg Take 1 tablet by mouth in the morning. [facility] fluticasone -umeclidin- vilanter (TRELEGY ELLIPTA) 200-62.5-25 mcg DsDv 2021-02 0-17 00:00: 00 Yes [id number] 1{puff} Inhale 1 Puff daily. [facility] famotidine 40 mg tablet 2021-02 017 00:00: 00 Yes [id number] 40mg Take 1 tablet by mouth in the morning. [facility] amLODIPine 5 mg tablet 2021-02 0 00:00: 00 Yes [id number] 5mg Take 1 tablet by mouth in the morning. [facility] fluticasone -umeclidin- vilanter (TRELEGY ELLIPTA) 200-62.5-25 mcg DsDv 2021-02 017 00:00: 00 Yes [id number] 1{puff} Inhale 1 Puff daily. [facility] famotidine 40 mg tablet 2021-02 0 00:00: 00 Yes [id number] 40mg Take 1 tablet by mouth in the morning. [facility] amLODIPine 5 mg tablet 2021-02 0 00:00: 00 Yes [id number] 5mg Take 1 tablet by mouth in the morning. [facility] fluticasone -umeclidin- vilanter (TRELEGY ELLIPTA) 200-62.5-25 mcg DsDv 2021-02 017 00:00: 00 Yes [id number] 1{puff} Inhale 1 Puff daily. [facility] famotidine 40 mg tablet 2021-02 0-17 00:00: 00 Yes [id number] 40mg Take 1 tablet by mouth in the morning. [facility] amLODIPine 5 mg tablet 2021-02 0-17 00:00: 00 Yes [id number] 5mg Take 1 tablet by mouth in the morning. [facility] fluticasone -umeclidin- vilanter (TRELEGY ELLIPTA) 200-62.5-25 mcg DsDv 2021-02 0-17 00:00: 00 Yes [id number] 1{puff} Inhale 1 Puff daily. [facility] famotidine 40 mg tablet 2021-02 0-17 00:00: 00 Yes [id number] 40mg Take 1 tablet by mouth in the morning. [facility] amLODIPine 5 mg tablet 2021-02 017 00:00: 00 Yes [id number] 5mg Take 1 tablet by mouth in the morning. [facility] fluticasone -umeclidin- vilanter (TRELEGY ELLIPTA) 200-62.5-25 mcg DsDv 2021-02 017 00:00: 00 Yes [id number] 1{puff} Inhale 1 Puff daily. [facility] famotidine 40 mg tablet 2021-02 017 00:00: 00 Yes [id number] 40mg Take 1 tablet by mouth in the morning. [facility] amLODIPine 5 mg tablet 2021-02 017 00:00: 00 Yes [id number] 5mg Take 1 tablet by mouth in the morning. [facility] fluticasone -umeclidin- vilanter (TRELEGY ELLIPTA) 200-62.5-25 mcg DsDv 2021-02 017 00:00: 00 Yes [id number] 1{puff} Inhale 1 Puff daily. [facility] famotidine 40 mg tablet 2021-02 017 00:00: 00 Yes [id number] 40mg Take 1 tablet by mouth in the morning. [facility] amLODIPine 5 mg tablet 2021-02 0-17 00:00: 00 Yes [id number] 5mg Take 1 tablet by mouth in the morning. [facility] fluticasone -umeclidin- vilanter (TRELEGY ELLIPTA) 200-62.5-25 mcg DsDv 2021-02 0-17 00:00: 00 Yes [id number] 1{puff} Inhale 1 Puff daily. [facility] famotidine 40 mg tablet 2021-02 0 00:00: 00 Yes [id number] 40mg Take 1 tablet by mouth in the morning. [facility] amLODIPine 5 mg tablet 2021-02 0 00:00: 00 Yes [id number] 5mg Take 1 tablet by mouth in the morning. [facility] fluticasone -umeclidin- vilanter (TRELEGY ELLIPTA) 200-62.5-25 mcg DsDv 2021-02 0 00:00: 00 Yes [id number] 1{puff} Inhale 1 Puff daily. [facility] famotidine 40 mg tablet 2021-02 0 00:00: 00 Yes [id number] 40mg Take 1 tablet by mouth in the morning. [facility] amLODIPine 5 mg tablet 2021-02 00:00: 00 Yes [id number] 5mg Take 1 tablet by mouth in the morning. [facility] fluticasone -umeclidin- vilanter (TRELEGY ELLIPTA) 200-62.5-25 mcg DsDv 2021-02 00:00: 00 Yes [id number] 1{puff} Inhale 1 Puff daily. [facility] famotidine 40 mg tablet 2021-02 00:00: 00 Yes [id number] 40mg Take 1 tablet by mouth in the morning. [facility] amLODIPine 5 mg tablet 2021-02 0 00:00: 00 Yes [id number] 5mg Take 1 tablet by mouth in the morning. [facility] fluticasone -umeclidin- vilanter (TRELEGY ELLIPTA) 200-62.5-25 mcg DsDv 2021-02 0 00:00: 00 Yes [id number] 1{puff} Inhale 1 Puff daily. [facility] famotidine 40 mg tablet 2021-02 0 00:00: 00 Yes [id number] 40mg Take 1 tablet by mouth in the morning. [facility] amLODIPine 5 mg tablet 2021-02 0 00:00: 00 Yes [id number] 5mg Take 1 tablet by mouth in the morning. [facility] fluticasone -umeclidin- vilanter (TRELEGY ELLIPTA) 200-62.5-25 mcg DsDv 2021-02 0 00:00: 00 Yes [id number] 1{puff} Inhale 1 Puff daily. [facility] famotidine 40 mg tablet 2021-02 0 00:00: 00 Yes [id number] 40mg Take 1 tablet by mouth in the morning. [facility] amLODIPine 5 mg tablet 2021-02 0 00:00: 00 Yes [id number] 5mg Take 1 tablet by mouth in the morning. [facility] famotidine 40 mg tablet 2021-02 00:00: 00 Yes [id number] 40mg Take 1 tablet by mouth in the morning. [facility] amLODIPine 5 mg tablet 2021-02 0 00:00: 00 Yes [id number] 5mg Take 1 tablet by mouth in the morning. [facility] famotidine 40 mg tablet 2021-02 0 00:00: 00 Yes [id number] 40mg Take 1 tablet by mouth in the morning. [facility] amLODIPine 5 mg tablet 2021-02 0 00:00: 00 Yes [id number] 5mg Take 1 tablet by mouth in the morning. [facility] famotidine 40 mg tablet 2021-02 0 00:00: 00 Yes [id number] 40mg Take 1 tablet by mouth in the morning. [facility] amLODIPine 5 mg tablet 2021-02 0 00:00: 00 Yes [id number] 5mg Take 1 tablet by mouth in the morning. [facility] famotidine 40 mg tablet 2021-02 0 00:00: 00 Yes [id number] 40mg Take 1 tablet by mouth in the morning. [facility] amLODIPine 5 mg tablet 2021-02 0 00:00: 00 Yes [id number] 5mg Take 1 tablet by mouth in the morning. [facility] famotidine 40 mg tablet 2021-02 0 00:00: 00 Yes [id number] 40mg Take 1 tablet by mouth in the morning. [facility] amLODIPine 5 mg tablet 2021-02 0-17 00:00: 00 Yes [id number] 5mg Take 1 tablet by mouth in the morning. [facility] famotidine 40 mg tablet 2021-02 0-17 00:00: 00 Yes [id number] 40mg Take 1 tablet by mouth in the morning. [facility] amLODIPine 5 mg tablet 2021-02 0-17 00:00: 00 Yes [id number] 5mg Take 1 tablet by mouth in the morning. [facility] famotidine 40 mg tablet 2021-02 0-17 00:00: 00 Yes [id number] 40mg Take 1 tablet by mouth in the morning. [facility] amLODIPine 5 mg tablet 2021-02 0- 00:00: 00 Yes [id number] 5mg Take 1 tablet by mouth in the morning. [facility] famotidine 40 mg tablet 2021-02 0 00:00: 00 Yes [id number] 40mg Take 1 tablet by mouth in the morning. [facility] amLODIPine 5 mg tablet 2021-02 0 00:00: 00 Yes [id number] 5mg Take 1 tablet by mouth in the morning. [facility] famotidine 40 mg tablet 2021-02 0 00:00: 00 Yes [id number] 40mg Take 1 tablet by mouth in the morning. [facility] amLODIPine 5 mg tablet 2021-02 0-17 00:00: 00 Yes [id number] 5mg Take 1 tablet by mouth in the morning. [facility] famotidine 40 mg tablet 2021-02 0-17 00:00: 00 Yes [id number] 40mg Take 1 tablet by mouth in the morning. [facility] amLODIPine 5 mg tablet 2021-02 0-17 00:00: 00 Yes [id number] 5mg Take 1 tablet by mouth in the morning. [facility] famotidine 40 mg tablet 2021-02 0-17 00:00: 00 Yes [id number] 40mg Take 1 tablet by mouth in the morning. [facility] amLODIPine 5 mg tablet 2021-02 00:00: 00 Yes [id number] 5mg Take 1 tablet by mouth in the morning. [facility] famotidine 40 mg tablet 2021-02 00:00: 00 Yes [id number] 40mg Take 1 tablet by mouth in the morning. [facility] amLODIPine 5 mg tablet 2021-02 00:00: 00 Yes [id number] 5mg Take 1 tablet by mouth in the morning. [facility] famotidine 40 mg tablet 2021-02 00:00: 00 Yes [id number] 40mg Take 1 tablet by mouth in the morning. [facility] amLODIPine 5 mg tablet 2021-02 00:00: 00 Yes [id number] 5mg Take 1 tablet by mouth in the morning. [facility] famotidine 40 mg tablet 2021-02 00:00: 00 Yes [id number] 40mg Take 1 tablet by mouth in the morning. [facility] famotidine 40 mg tablet 2021-02 00:00: 00 Yes [id number] 40mg Take 1 tablet by mouth in the morning. [facility] famotidine 40 mg tablet 2021-02 00:00: 00 Yes [id number] 40mg Take 1 tablet by mouth in the morning. [facility] famotidine 40 mg tablet 2021-02 00:00: 00 Yes [id number] 40mg Take 1 tablet by mouth in the morning. [facility] amLODIPine 5 mg tablet 2021-02 00:00: 00 Yes [id number] 5mg Take 1 tablet by mouth in the morning. [facility] fluticasone -umeclidin- vilanter (TRELEGY ELLIPTA) 200-62.5-25 mcg DsDv 2021-02 00:00: 00 Yes [id number] 1{puff} Inhale 1 Puff daily. [facility] ibuprofen 800 mg tablet 2021-02 00:00: 00 Yes [id number] 800mg Take 1 tablet by mouth in the morning and 1 tablet in the evening. Take with meals. [facility] gabapentin 600 mg tablet 2021-02 00:00: 00 Yes [id number] 600mg Take 1 tablet by mouth in the morning and 1 tablet at noon and 1 tablet in the evening. [facility] famotidine 40 mg tablet 2021-02 00:00: 00 Yes [id number] 40mg Take 1 tablet by mouth in the morning. [facility] amLODIPine 5 mg tablet 2021-02 00:00: 00 Yes [id number] 5mg Take 1 tablet by mouth in the morning. [facility] fluticasone -umeclidin- vilanter (TRELEGY ELLIPTA) 200-62.5-25 mcg DsDv 2021-02 00:00: 00 Yes [id number] 1{puff} Inhale 1 Puff daily. [facility] ibuprofen 800 mg tablet 2021-02 00:00: 00 Yes [id number] 800mg Take 1 tablet by mouth in the morning and 1 tablet in the evening. Take with meals. [facility] [facility] gabapentin 600 mg tablet 2021-02 00:00: 00 Yes [id number] 600mg Take 1 tablet by mouth in the morning and 1 tablet at noon and 1 tablet in the evening. [facility] famotidine 40 mg tablet 2021-02 00:00: 00 Yes [id number] 40mg Take 1 tablet by mouth in the morning. [facility] amLODIPine 5 mg tablet 2021-02 00:00: 00 Yes [id number] 5mg Take 1 tablet by mouth in the morning. [facility] fluticasone -umeclidin- vilanter (TRELEGY ELLIPTA) 200-62.5-25 mcg DsDv 2021-02 00:00: 00 Yes [id number] 1{puff} Inhale 1 Puff daily. [facility] ibuprofen 800 mg tablet 2021-02 00:00: 00 Yes [id number] 800mg Take 1 tablet by mouth in the morning and 1 tablet in the evening. Take with meals. [facility] gabapentin 600 mg tablet 2021-02 00:00: 00 Yes [id number] 600mg Take 1 tablet by mouth in the morning and 1 tablet at noon and 1 tablet in the evening. [facility] famotidine 40 mg tablet 2021-02 00:00: 00 Yes [id number] 40mg Take 1 tablet by mouth in the morning. [facility] amLODIPine 5 mg tablet 2021-02 00:00: 00 Yes [id number] 5mg Take 1 tablet by mouth in the morning. [facility] fluticasone -umeclidin- vilanter (TRELEGY ELLIPTA) 200-62.5-25 mcg DsDv 2021-02 00:00: 00 Yes [id number] 1{puff} Inhale 1 Puff daily. [facility] ibuprofen 800 mg tablet 2021-02 00:00: 00 Yes [id number] 800mg Take 1 tablet by mouth in the morning and 1 tablet in the evening. Take with meals. [facility] gabapentin 600 mg tablet 2021-02 00:00: 00 Yes [id number] 600mg Take 1 tablet by mouth in the morning and 1 tablet at noon and 1 tablet in the evening. [facility] famotidine 40 mg tablet 2021-02 00:00: 00 Yes [id number] 40mg Take 1 tablet by mouth in the morning. [facility] amLODIPine 5 mg tablet 2021-02 00:00: 00 Yes [id number] 5mg Take 1 tablet by mouth in the morning. [facility] fluticasone -umeclidin- vilanter (TRELEGY ELLIPTA) 200-62.5-25 mcg DsDv 2021-02 00:00: 00 Yes [id number] 1{puff} Inhale 1 Puff daily. [facility] ibuprofen 800 mg tablet 2021-02 00:00: 00 Yes [id number] 800mg Take 1 tablet by mouth in the morning and 1 tablet in the evening. Take with meals. [facility] gabapentin 600 mg tablet 2021-02 00:00: 00 Yes [id number] 600mg Take 1 tablet by mouth in the morning and 1 tablet at noon and 1 tablet in the evening. [facility] famotidine 40 mg tablet 2021-02 00:00: 00 Yes [id number] 40mg Take 1 tablet by mouth in the morning. [facility] amLODIPine 5 mg tablet 2021-02 00:00: 00 Yes [id number] 5mg Take 1 tablet by mouth in the morning. [facility] fluticasone -umeclidin- vilanter (TRELEGY ELLIPTA) 200-62.5-25 mcg DsDv 2021-02 00:00: 00 Yes [id number] 1{puff} Inhale 1 Puff daily. [facility] ibuprofen 800 mg tablet 2021-02 00:00: 00 Yes [id number] 800mg Take 1 tablet by mouth in the morning and 1 tablet in the evening. Take with meals. [facility] gabapentin 600 mg tablet 2021-02 00:00: 00 Yes [id number] 600mg Take 1 tablet by mouth in the morning and 1 tablet at noon and 1 tablet in the evening. [facility] famotidine 40 mg tablet 2021-02 00:00: 00 Yes [id number] 40mg Take 1 tablet by mouth in the morning. [facility] amLODIPine 5 mg tablet 2021-02 00:00: 00 Yes [id number] 5mg Take 1 tablet by mouth in the morning. [facility] fluticasone -umeclidin- vilanter (TRELEGY ELLIPTA) 200-62.5-25 mcg DsDv 2021-02 00:00: 00 Yes [id number] 1{puff} Inhale 1 Puff daily. [facility] ibuprofen 800 mg tablet 2021-02 00:00: 00 Yes [id number] 800mg Take 1 tablet by mouth in the morning and 1 tablet in the evening. Take with meals. [facility] gabapentin 600 mg tablet 2021-02 00:00: 00 Yes [id number] 600mg Take 1 tablet by mouth in the morning and 1 tablet at noon and 1 tablet in the evening. [facility] famotidine 40 mg tablet 2021-02 00:00: 00 Yes [id number] 40mg Take 1 tablet by mouth in the morning. [facility] amLODIPine 5 mg tablet 2021-02 00:00: 00 Yes [id number] 5mg Take 1 tablet by mouth in the morning. [facility] fluticasone -umeclidin- vilanter (TRELEGY ELLIPTA) 200-62.5-25 mcg DsDv 2021-02 00:00: 00 Yes [id number] 1{puff} Inhale 1 Puff daily. [facility] ibuprofen 800 mg tablet 2021-02 00:00: 00 Yes [id number] 800mg Take 1 tablet by mouth in the morning and 1 tablet in the evening. Take with meals. [facility] gabapentin 600 mg tablet 2021-02 00:00: 00 Yes [id number] 600mg Take 1 tablet by mouth in the morning and 1 tablet at noon and 1 tablet in the evening. [facility] famotidine 40 mg tablet 2021-02 00:00: 00 Yes [id number] 40mg Take 1 tablet by mouth in the morning. [facility] amLODIPine 5 mg tablet 2021-02 00:00: 00 Yes [id number] 5mg Take 1 tablet by mouth in the morning. [facility] fluticasone -umeclidin- vilanter (TRELEGY ELLIPTA) 200-62.5-25 mcg DsDv 2021-02 00:00: 00 Yes [id number] 1{puff} Inhale 1 Puff daily. [facility] ibuprofen 800 mg tablet 2021-02 00:00: 00 Yes [id number] 800mg Take 1 tablet by mouth in the morning and 1 tablet in the evening. Take with meals. [facility] gabapentin 600 mg tablet 2021-02 00:00: 00 Yes [id number] 600mg Take 1 tablet by mouth in the morning and 1 tablet at noon and 1 tablet in the evening. [facility] famotidine 40 mg tablet 2021-02 00:00: 00 Yes [id number] 40mg Take 1 tablet by mouth in the morning. [facility] amLODIPine 5 mg tablet 2021-02 00:00: 00 Yes [id number] 5mg Take 1 tablet by mouth in the morning. [facility] fluticasone -umeclidin- vilanter (TRELEGY ELLIPTA) 200-62.5-25 mcg DsDv 2021-02 0 00:00: 00 Yes [id number] 1{puff} Inhale 1 Puff daily. [facility] ibuprofen 800 mg tablet 2021-02 00:00: 00 Yes [id number] 800mg Take 1 tablet by mouth in the morning and 1 tablet in the evening. Take with meals. [facility] gabapentin 600 mg tablet 2021-02 00:00: 00 Yes [id number] 600mg Take 1 tablet by mouth in the morning and 1 tablet at noon and 1 tablet in the evening. [facility] famotidine 40 mg tablet 2021-02 00:00: 00 Yes [id number] 40mg Take 1 tablet by mouth in the morning. [facility] amLODIPine 5 mg tablet 2021-02 00:00: 00 Yes [id number] 5mg Take 1 tablet by mouth in the morning. [facility] fluticasone -umeclidin- vilanter (TRELEGY ELLIPTA) 200-62.5-25 mcg DsDv 2021-02 00:00: 00 Yes [id number] 1{puff} Inhale 1 Puff daily. [facility] ibuprofen 800 mg tablet 2021-02 00:00: 00 Yes [id number] 800mg Take 1 tablet by mouth in the morning and 1 tablet in the evening. Take with meals. [facility] gabapentin 600 mg tablet 2021-02 00:00: 00 Yes [id number] 600mg Take 1 tablet by mouth in the morning and 1 tablet at noon and 1 tablet in the evening. [facility] famotidine 40 mg tablet 2021-02 00:00: 00 Yes [id number] 40mg Take 1 tablet by mouth in the morning. [facility] amLODIPine 5 mg tablet 2021-02 00:00: 00 Yes [id number] 5mg Take 1 tablet by mouth in the morning. [facility] fluticasone -umeclidin- vilanter (TRELEGY ELLIPTA) 200-62.5-25 mcg DsDv 2021-02 00:00: 00 Yes [id number] 1{puff} Inhale 1 Puff daily. [facility] ibuprofen 800 mg tablet 2021-02 00:00: 00 Yes [id number] 800mg Take 1 tablet by mouth in the morning and 1 tablet in the evening. Take with meals. [facility] gabapentin 600 mg tablet 2021-02 00:00: 00 Yes [id number] 600mg Take 1 tablet by mouth in the morning and 1 tablet at noon and 1 tablet in the evening. [facility] famotidine 40 mg tablet 2021-02 00:00: 00 Yes [id number] 40mg Take 1 tablet by mouth in the morning. [facility] amLODIPine 5 mg tablet 2021-02 00:00: 00 Yes [id number] 5mg Take 1 tablet by mouth in the morning. [facility] fluticasone -umeclidin- vilanter (TRELEGY ELLIPTA) 200-62.5-25 mcg DsDv 2021-02 00:00: 00 Yes [id number] 1{puff} Inhale 1 Puff daily. [facility] ibuprofen 800 mg tablet 2021-02 00:00: 00 Yes [id number] 800mg Take 1 tablet by mouth in the morning and 1 tablet in the evening. Take with meals. [facility] gabapentin 600 mg tablet 2021-02 00:00: 00 Yes [id number] 600mg Take 1 tablet by mouth in the morning and 1 tablet at noon and 1 tablet in the evening. [facility] famotidine 40 mg tablet 2021-02 00:00: 00 Yes [id number] 40mg Take 1 tablet by mouth in the morning. [facility] amLODIPine 5 mg tablet 2021-02 00:00: 00 Yes [id number] 5mg Take 1 tablet by mouth in the morning. [facility] fluticasone -umeclidin- vilanter (TRELEGY ELLIPTA) 200-62.5-25 mcg DsDv 2021-02 00:00: 00 Yes [id number] 1{puff} Inhale 1 Puff daily. [facility] ibuprofen 800 mg tablet 2021-02 00:00: 00 Yes [id number] 800mg Take 1 tablet by mouth in the morning and 1 tablet in the evening. Take with meals. [facility] gabapentin 600 mg tablet 2021-02 00:00: 00 Yes [id number] 600mg Take 1 tablet by mouth in the morning and 1 tablet at noon and 1 tablet in the evening. [facility] famotidine 40 mg tablet 2021-02 00:00: 00 Yes [id number] 40mg Take 1 tablet by mouth in the morning. [facility] amLODIPine 5 mg tablet 2021-02 00:00: 00 Yes [id number] 5mg Take 1 tablet by mouth in the morning. [facility] fluticasone -umeclidin- vilanter (TRELEGY ELLIPTA) 200-62.5-25 mcg DsDv 2021-02 00:00: 00 Yes [id number] 1{puff} Inhale 1 Puff daily. [facility] ibuprofen 800 mg tablet 2021-02 00:00: 00 Yes [id number] 800mg Take 1 tablet by mouth in the morning and 1 tablet in the evening. Take with meals. [facility] gabapentin 600 mg tablet 2021-02 00:00: 00 Yes [id number] 600mg Take 1 tablet by mouth in the morning and 1 tablet at noon and 1 tablet in the evening. [facility] famotidine 40 mg tablet 2021-02 00:00: 00 Yes [id number] 40mg Take 1 tablet by mouth in the morning. [facility] amLODIPine 5 mg tablet 2021-02 00:00: 00 Yes [id number] 5mg Take 1 tablet by mouth in the morning. [facility] fluticasone -umeclidin- vilanter (TRELEGY ELLIPTA) 200-62.5-25 mcg DsDv 2021-02 00:00: 00 Yes [id number] 1{puff} Inhale 1 Puff daily. [facility] ibuprofen 800 mg tablet 2021-02 00:00: 00 Yes [id number] 800mg Take 1 tablet by mouth in the morning and 1 tablet in the evening. Take with meals. [facility] gabapentin 600 mg tablet 2021-02 00:00: 00 Yes [id number] 600mg Take 1 tablet by mouth in the morning and 1 tablet at noon and 1 tablet in the evening. [facility] famotidine 40 mg tablet 2021-02 00:00: 00 Yes [id number] 40mg Take 1 tablet by mouth in the morning. [facility] amLODIPine 5 mg tablet 2021-02 00:00: 00 Yes [id number] 5mg Take 1 tablet by mouth in the morning. [facility] fluticasone -umeclidin- vilanter (TRELEGY ELLIPTA) 200-62.5-25 mcg DsDv 2021-02 00:00: 00 Yes [id number] 1{puff} Inhale 1 Puff daily. [facility] ibuprofen 800 mg tablet 2021-02 00:00: 00 Yes [id number] 800mg Take 1 tablet by mouth in the morning and 1 tablet in the evening. Take with meals. [facility] gabapentin 600 mg tablet 2021-02 00:00: 00 Yes [id number] 600mg Take 1 tablet by mouth in the morning and 1 tablet at noon and 1 tablet in the evening. [facility] famotidine 40 mg tablet 2021-02 00:00: 00 Yes [id number] 40mg Take 1 tablet by mouth in the morning. [facility] amLODIPine 5 mg tablet 2021-02 00:00: 00 Yes [id number] 5mg Take 1 tablet by mouth in the morning. [facility] fluticasone -umeclidin- vilanter (TRELEGY ELLIPTA) 200-62.5-25 mcg DsDv 2021-02 0 00:00: 00 Yes [id number] 1{puff} Inhale 1 Puff daily. [facility] ibuprofen 800 mg tablet 2021-02 00:00: 00 Yes [id number] 800mg Take 1 tablet by mouth in the morning and 1 tablet in the evening. Take with meals. [facility] gabapentin 600 mg tablet 2021-02 00:00: 00 Yes [id number] 600mg Take 1 tablet by mouth in the morning and 1 tablet at noon and 1 tablet in the evening. [facility] famotidine 40 mg tablet 2021-02 00:00: 00 Yes [id number] 40mg Take 1 tablet by mouth in the morning. [facility] amLODIPine 5 mg tablet 2021-02 00:00: 00 Yes [id number] 5mg Take 1 tablet by mouth in the morning. [facility] fluticasone -umeclidin- vilanter (TRELEGY ELLIPTA) 200-62.5-25 mcg DsDv 2021-02 00:00: 00 Yes [id number] 1{puff} Inhale 1 Puff daily. [facility] ibuprofen 800 mg tablet 2021-02 00:00: 00 Yes [id number] 800mg Take 1 tablet by mouth in the morning and 1 tablet in the evening. Take with meals. [facility] gabapentin 600 mg tablet 2021-02 00:00: 00 Yes [id number] 600mg Take 1 tablet by mouth in the morning and 1 tablet at noon and 1 tablet in the evening. [facility] famotidine 40 mg tablet 2021-02 00:00: 00 Yes [id number] 40mg Take 1 tablet by mouth in the morning. [facility] amLODIPine 5 mg tablet 2021-02 0-17 00:00: 00 Yes [id number] 5mg Take 1 tablet by mouth in the morning. [facility] fluticasone -umeclidin- vilanter (TRELEGY ELLIPTA) 200-62.5-25 mcg DsDv 2021-02 0-17 00:00: 00 Yes [id number] 1{puff} Inhale 1 Puff daily. [facility] ibuprofen 800 mg tablet 2021-02 0 00:00: 00 Yes [id number] 800mg Take 1 tablet by mouth in the morning and 1 tablet in the evening. Take with meals. [facility] gabapentin 600 mg tablet 2021-02 0 00:00: 00 Yes [id number] 600mg Take 1 tablet by mouth in the morning and 1 tablet at noon and 1 tablet in the evening. [facility] amLODIPine 5 mg tablet 2021-02 0 00:00: 00 01-31 00:00 :00 No [id number] 5mg Take 1 tablet by mouth in the morning. [facility] amLODIPine 5 mg tablet 2021-02 0 00:00: 00 01-31 00:00 :00 No [id number] 5mg Take 1 tablet by mouth in the morning. [facility] fluticasone -umeclidin- vilanter (TRELEGY ELLIPTA) 200-62.5-25 mcg DsDv 2021-02 0 00:00: 00 07-18 00:00 :00 No [id number] 1{puff} Inhale 1 Puff daily. [facility] fluticasone -umeclidin- vilanter (TRELEGY ELLIPTA) 200-62.5-25 mcg DsDv 2021-02 0-17 00:00: 00 07-18 00:00 :00 No [id number] 1{puff} Inhale 1 Puff daily. [facility] fluticasone -umeclidin- vilanter (TRELEGY ELLIPTA) 200-62.5-25 mcg DsDv 2021-02 0-17 00:00: 00 07-18 00:00 :00 No [id number] 1{puff} Inhale 1 Puff daily. [facility] ibuprofen 800 mg tablet 2021-02 0-17 00:00: 00 03-07 00:00 :00 No [id number] 800mg Take 1 tablet by mouth in the morning and 1 tablet in the evening. Take with meals. [facility] gabapentin 600 mg tablet 2021-02 0- 00:00: 00 03-07 00:00 :00 No [id number] 600mg Take 1 tablet by mouth in the morning and 1 tablet at noon and 1 tablet in the evening. [facility] ibuprofen 800 mg tablet 2021-02 0 00:00: 00 03-07 00:00 :00 No [id number] 800mg Take 1 tablet by mouth in the morning and 1 tablet in the evening. Take with meals. [facility] gabapentin 600 mg tablet 2021-02 0 00:00: 00 03-07 00:00 :00 No [id number] 600mg Take 1 tablet by mouth in the morning and 1 tablet at noon and 1 tablet in the evening. [facility] ibuprofen 800 mg tablet 2021-02 0 00:00: 00 03-07 00:00 :00 No [id number] 800mg Take 1 tablet by mouth in the morning and 1 tablet in the evening. Take with meals. [facility] gabapentin 600 mg tablet 2021-02 0 00:00: 00 03-07 00:00 :00 No [id number] 600mg Take 1 tablet by mouth in the morning and 1 tablet at noon and 1 tablet in the evening. [facility] ibuprofen 800 mg tablet 2021-02 0- 00:00: 00 03-07 00:00 :00 No [id number] 800mg Take 1 tablet by mouth in the morning and 1 tablet in the evening. Take with meals. [facility] gabapentin 600 mg tablet 2021-02 0-17 00:00: 00 03-07 00:00 :00 No [id number] 600mg Take 1 tablet by mouth in the morning and 1 tablet at noon and 1 tablet in the evening. [facility] ibuprofen 800 mg tablet 2021-02 0-17 00:00: 00 03-07 00:00 :00 No [id number] 800mg Take 1 tablet by mouth in the morning and 1 tablet in the evening. Take with meals. [facility] gabapentin 600 mg tablet 2021-02 0-17 00:00: 00 03-07 00:00 :00 No [id number] 600mg Take 1 tablet by mouth in the morning and 1 tablet at noon and 1 tablet in the evening. [facility] varenicline (CHANTIX) 1 mg tablet 2021-02 0- 00:00: 00 03-06 05:59 :00 No [id number] 1mg Take 1 tablet by mouth in the morning and 1 tablet in the evening. Do all this for 90 days. [facility] varenicline (CHANTIX) 1 mg tablet 2021-02 0- 00:00: 00 03-06 05:59 :00 No [id number] 1mg Take 1 tablet by mouth in the morning and 1 tablet in the evening. Do all this for 90 days. [facility] varenicline (CHANTIX) 1 mg tablet 2021-02 0- 00:00: 00 03-06 05:59 :00 No [id number] 1mg Take 1 tablet by mouth in the morning and 1 tablet in the evening. Do all this for 90 days. [facility] varenicline (CHANTIX) 1 mg tablet 2021-02 0-17 00:00: 00 03-06 05:59 :00 No [id number] 1mg Take 1 tablet by mouth in the morning and 1 tablet in the evening. Do all this for 90 days. [facility] varenicline (CHANTIX) 1 mg tablet 2021-02 0-17 00:00: 00 03-06 05:59 :00 No [id number] 1mg Take 1 tablet by mouth in the morning and 1 tablet in the evening. Do all this for 90 days. [facility] varenicline (CHANTIX) 1 mg tablet 2021-02 0-17 00:00: 00 03-06 05:59 :00 No [id number] 1mg Take 1 tablet by mouth in the morning and 1 tablet in the evening. Do all this for 90 days. [facility] varenicline (CHANTIX) 1 mg tablet 2021-02 0-17 00:00: 00 03-06 05:59 :00 No [id number] 1mg Take 1 tablet by mouth in the morning and 1 tablet in the evening. Do all this for 90 days. [facility] varenicline (CHANTIX) 1 mg tablet 2021-02 0-17 00:00: 00 03-06 05:59 :00 No [id number] 1mg Take 1 tablet by mouth in the morning and 1 tablet in the evening. Do all this for 90 days. [facility] varenicline (CHANTIX) 1 mg tablet 2021-02 0-17 00:00: 00 03-06 05:59 :00 No [id number] 1mg Take 1 tablet by mouth in the morning and 1 tablet in the evening. Do all this for 90 days. [facility] varenicline (CHANTIX) 1 mg tablet 2021-02 0-17 00:00: 00 03-06 05:59 :00 No [id number] 1mg Take 1 tablet by mouth in the morning and 1 tablet in the evening. Do all this for 90 days. [facility] varenicline (CHANTIX) 1 mg tablet 2021-02 0-17 00:00: 00 03-06 05:59 :00 No [id number] 1mg Take 1 tablet by mouth in the morning and 1 tablet in the evening. Do all this for 90 days. [facility] varenicline (CHANTIX) 1 mg tablet 2021-02 0-17 00:00: 00 03-06 05:59 :00 No [id number] 1mg Take 1 tablet by mouth in the morning and 1 tablet in the evening. Do all this for 90 days. [facility] varenicline (CHANTIX) 1 mg tablet 2021-02 0-17 00:00: 00 03-06 05:59 :00 No [id number] 1mg Take 1 tablet by mouth in the morning and 1 tablet in the evening. Do all this for 90 days. [facility] varenicline (CHANTIX) 1 mg tablet 2021- 0-17 00:00: 00 03-06 05:59 :00 No [id number] 1mg Take 1 tablet by mouth in the morning and 1 tablet in the evening. Do all this for 90 days. [facility] varenicline (CHANTIX) 1 mg tablet 2021-02 0-17 00:00: 00 03-06 05:59 :00 No [id number] 1mg Take 1 tablet by mouth in the morning and 1 tablet in the evening. Do all this for 90 days. [facility] varenicline (CHANTIX) 1 mg tablet 2021-02 0-17 00:00: 00 03-06 05:59 :00 No [id number] 1mg Take 1 tablet by mouth in the morning and 1 tablet in the evening. Do all this for 90 days. [facility] varenicline (CHANTIX) 1 mg tablet 2021-02 0-17 00:00: 00 03-06 05:59 :00 No [id number] 1mg Take 1 tablet by mouth in the morning and 1 tablet in the evening. Do all this for 90 days. [facility] varenicline (CHANTIX) 1 mg tablet 2021-02 0-17 00:00: 00 03-06 05:59 :00 No [id number] 1mg Take 1 tablet by mouth in the morning and 1 tablet in the evening. Do all this for 90 days. [facility] varenicline (CHANTIX) 1 mg tablet 2021-02 0-17 00:00: 00 03-06 05:59 :00 No [id number] 1mg Take 1 tablet by mouth in the morning and 1 tablet in the evening. Do all this for 90 days. [facility] varenicline (CHANTIX) 1 mg tablet 2021- 0-17 00:00: 00 03-06 05:59 :00 No [id number] 1mg Take 1 tablet by mouth in the morning and 1 tablet in the evening. Do all this for 90 days. [facility] varenicline (CHANTIX) 1 mg tablet 2021-02 0-17 00:00: 00 03-06 05:59 :00 No [id number] 1mg Take 1 tablet by mouth in the morning and 1 tablet in the evening. Do all this for 90 days. [facility] varenicline (CHANTIX) 1 mg tablet 2021-02 0-17 00:00: 00 03-06 05:59 :00 No [id number] 1mg Take 1 tablet by mouth in the morning and 1 tablet in the evening. Do all this for 90 days. [facility] varenicline (CHANTIX) 1 mg tablet 2021-02 0- 00:00: 00 03-06 05:59 :00 No [id number] 1mg Take 1 tablet by mouth in the morning and 1 tablet in the evening. Do all this for 90 days. [facility] varenicline (CHANTIX) 1 mg tablet 2021-02 017 00:00: 00 03-06 05:59 :00 No [id number] 1mg Take 1 tablet by mouth in the morning and 1 tablet in the evening. Do all this for 90 days. [facility] famotidine 40 mg tablet 09-27 00:00: 00 12-05 00:00 :00 No [facility] famotidine 40 mg tablet 0 8 00:00: 00 12-05 00:00 :00 No [facility] famotidine 40 mg tablet 0 8 00:00: 00 12-05 00:00 :00 No [facility] amLODIPine 5 mg tablet 09-26 15:52: 50 Yes 5mg Take 5 mg by mouth in the morning. [facility] gabapentin 600 mg tablet 09-26 15:52: 50 Yes 600mg Take 600 mg by mouth in the morning and 600 mg at noon and 600 mg in the evening. [facility] fluticasone -umeclidin- vilanter (TRELEGY ELLIPTA) 200-62.5-25 mcg DsDv 09-26 15:52: 50 Yes 1{puff} Inhale 1 Puff daily. [facility] amLODIPine 5 mg tablet 09-26 15:52: 50 Yes 5mg Take 5 mg by mouth in the morning. [facility] gabapentin 600 mg tablet 09-26 15:52: 50 Yes 600mg Take 600 mg by mouth in the morning and 600 mg at noon and 600 mg in the evening. [facility] fluticasone -umeclidin- vilanter (TRELEGY ELLIPTA) 200-62.5-25 mcg DsDv 09-26 15:52: 50 Yes 1{puff} Inhale 1 Puff daily. [facility] amLODIPine 5 mg tablet 09-26 15:52: 50 Yes 5mg Take 5 mg by mouth in the morning. [facility] gabapentin 600 mg tablet 09-26 15:52: 50 Yes 600mg Take 600 mg by mouth in the morning and 600 mg at noon and 600 mg in the evening. [facility] fluticasone -umeclidin- vilanter (TRELEGY ELLIPTA) 200-62.5-25 mcg DsDv 09-26 15:52: 50 Yes 1{puff} Inhale 1 Puff daily. [facility] amLODIPine 5 mg tablet 09-26 15:52: 50 Yes 5mg Take 5 mg by mouth in the morning. [facility] gabapentin 600 mg tablet 09-26 15:52: 50 Yes 600mg Take 600 mg by mouth in the morning and 600 mg at noon and 600 mg in the evening. [facility] fluticasone -umeclidin- vilanter (TRELEGY ELLIPTA) 200-62.5-25 mcg DsDv 09-26 15:52: 50 Yes 1{puff} Inhale 1 Puff daily. [facility] amoxicillin -clavulanat e 875-125 mg per tablet 09-26 00:00: 00 11-08 04:59 :00 No [id number] 1{tbl} Take 1 tablet by mouth in the morning and 1 tablet in the evening. Do all this for 42 days. [facility] amoxicillin -clavulanat e 875-125 mg per tablet 09-26 00:00: 00 11-08 04:59 :00 No [id number] 1{tbl} Take 1 tablet by mouth in the morning and 1 tablet in the evening. Do all this for 42 days. [facility] HYDROcodone -acetaminop hen (NORCO 5) 5-325 mg tablet 1 tablet 09-25 13:01: 51 Yes 1{tbl} 1 tablet, Oral, Q6HPRN, Starting on 09/25/21 at 0801, Until Discontinu ed, Routine, Pain (scale 4-6) [facility] vancomycin 1,250 mg in NaCl 0.9% (NS) 250 mL VIAL-MATE IV piggyback 09-25 13:00: 00 09-28 20:59 :00 No 1250mg 1,250 mg, IV Piggyback, Q8H ABX, 10 doses, First dose (after last modificati on) on 09/25/21 at 0800, Last dose on Sun09/28/21 at 0800, Administer over 90 Minutes, 250 mL
Reas on for Anti-Infec tive: Empiric Therapy for Suspected Infection< br>Empiric Therapy Site: Respirator y
Durat ion of therapy: 7 days [facility] ondansetron (ZOFRAN (PF)) injection 4 mg 09-25 02:49: 00 Yes 4mg 4 mg, Slow IV Push, Q6HPRN, Nausea and Vomiting (N/V), Starting on 09/24/21 at 2149
Do ses of ondansetro n 16 mg and above need to be administer ed via IV piggyback. For Dose >=24mg ECG monitoring is advisable.
[facility] proMETHazin e (PHENERGAN) 25 mg in NaCl 0.9% (NS) 50 mL IV piggyback 09-24 22:22: 38 Yes 25mg 25 mg, IV Piggyback, Q4HPRN, Starting on 09/24/21 at 1722, Until Discontinu ed, Routine, Nausea and Vomiting (N/V) [facility] temazepam (RESTORIL) capsule 15 mg 09-24 20:28: 04 Yes 15mg 15 mg, Oral, QHSPRN, Starting on 09/24/21 at 1528, Until Discontinu ed, Routine, Insomnia [facility] codeine-gua ifenesin (ROBITUSSIN AC) 10-100 mg/5 mL oral solution 10 mL 09-24 20:27: 39 Yes 10mL 10 mL, Oral, Q6HPRN, Starting on 09/24/21 at 1527, Until Discontinu ed, Routine, Cough [facility] LORazepam (ATIVAN) tablet 1 mg 09-23 22:13: 53 Yes 1mg 1 mg, Oral, BIDPRN, Starting on Sun09/23/21 at 1713, Until Discontinu ed, Routine, Anxiety, Agitation [facility] vancomycin 1,250 mg in NaCl 0.9% (NS) 250 mL VIAL-MATE IV piggyback 09-23 15:30: 00 09-25 12:30 :12 No 1250mg 1,250 mg, IV Piggyback, Q12H ABX, 14 doses, First dose on Sun09/23/21 at 1030, Last dose on Sun09/29/21 at 2230, Administer over 90 Minutes, 250 mL
Reas on for Anti-Infec tive: Empiric Therapy for Suspected Infection< br>Empiric Therapy Site: Respirator y
Durat ion of therapy: 7 days [facility] amLODIPine (NORVASC) tablet 5 mg 09-23 14:00: 00 Yes 5mg 5 mg, Oral, DAILY, First dose on Sun09/23/21 at 0900, Until Discontinu ed, Routine [facility] ceFEPIme (MAXIPIME) 1 g in NaCl 0.9% (NS) 50 mL MINI-BAG 09-23 11:00: 00 09-30 10:59 :00 No 1g 1 g, IV Piggyback, Q8H ABX, 21 doses, First dose (after last modificati on) on Sun09/23/21 at 0600, Last dose on Sun09/29/21 at 2200, Administer over 4 Hours, 50 mL
Reas on for Anti-Infec tive: Empiric Therapy for Suspected Infection< br>Empiric Therapy Site: Respirator y
Durat ion of therapy: 7 days [facility] NaCl 0.9% (NS) IV infusion 1,000 mL 09-23 05:45: 00 09-25 17:15 :50 No 1000mL at 125 mL/hr, IV Infusion, CONTINUOUS , Starting on Sun09/23/21 at 0045, Until Sun09/25/21 at 1215, Routine [facility] ipratropium -albuteroL (DUONEB) 0.5 mg-3 mg(2.5 mg base)/3 mL nebulizer solution 3 mL 09-23 05:00: 00 Yes 3mL 3 mL, Inhalation , Q4H, First dose on Sun09/23/21 at 0000, Until Discontinu ed, Routine [facility] HYDROcodone -acetaminop hen (NORCO 5) 5-325 mg tablet 1 tablet 09-23 04:40: 04 09-25 04:39 :04 No 1{tbl} 1 tablet, Oral, Q6HPRN, Starting on Sun09/22/21 at 2340, Until 09/24/21 at 2339, Routine, Pain (scale 4-6) [facility] acetaminoph en (TYLENOL) tablet 650 mg 09-23 04:40: 00 Yes 650mg 650 mg, Oral, Q6HPRN, Starting on Sun09/22/21 at 2340, Until Discontinu ed, Routine, Pain (scale 1-3) [facility] ceFEPIme (MAXIPIME) 1 g in NaCl 0.9% (NS) 50 mL MINI-BAG 09-23 04:00: 00 09-23 03:30 :54 No 1g 1 g, IV Piggyback, ONCE NOW, 1 dose, On Sun09/22/21 at 2300, Administer over 30 Minutes, 50 mL
Reas on for Anti-Infec tive: Documented Infection< br>Documen ingris Infection Site: Respirator y
Durat ion of Therapy: Other (see Comments) [facility] vancomycin (VANCOCIN) 1,500 mg in NaCl 0.9% (NS) 500 mL VIAL-MATE IV piggyback 09-23 03:45: 00 09-23 05:06 :00 No 15mg/kg 1,500 mg (rounded from 1,360.5 mg = 15 mg/kg ?90.7 kg), IV Piggyback, ONCE, 1 dose, On Sun09/22/21 at 2245, Administer over 90 Minutes, 500 mL
Reas on for Anti-Infec tive: Documented Infection& lt;br>Docu mented Infection Site: Respirator y
Durat ion of Therapy: Other (see Comments) [facility] iopamidol (ISOVUE 370-500 mL) injection 80 mL 09-23 03:00: 00 09-23 03:00 :00 No [id number] 80mL 80 mL, Intravenou s, ONCE, 1 dose, On Sun09/22/21 at 2200, Routine [facility] ondansetron (ZOFRAN (PF)) injection 4 mg 09-23 02:00: 00 09-23 01:52 :00 No 4mg 4 mg, Slow IV Push, ONCE, 1 dose, On Sun09/22/21 at 2100, [facility] NaCl 0.9% (NS) bolus infusion 1,000 mL 09-23 02:00: 00 09-23 02:55 :00 No 1000mL at 999 mL/hr, 1,000 mL, IV Infusion, ONCE, 1 dose, On Sun09/22/21 at 2100, MAURA [facility] acetaminoph en (TYLENOL) tablet 1,000 mg 805 00:30: 00 08 00:20 :00 No 1000mg 1,000 mg, Oral, ONCE, 1 dose, On Leny 09/22/21 at 1930, MAURA [facility] clindamycin 150 mg capsule 1-03 00:00: 00 03-01 05:59 :00 No [id number] 450mg Take 3 capsules by mouth 4 (four) times daily for 7 days. [facility] ciprofloxac in HCl 500 mg tablet 2019-02 0 00:00: 00 Yes [id number] 500mg Take 1 tablet by mouth every 12 (twelve) hours. [facility] metroNIDAZO LE 250 mg tablet 2019-02 00:00: 00 Yes [id number] 500mg Take 2 tablets by mouth every 8 (eight) hours. [facility] ibuprofen 800 mg tablet 2019-02 00:00: 00 Yes [id number] 800mg Take 1 tablet by mouth 3 (three) times daily with meals. [facility] ciprofloxac in HCl 500 mg tablet 2019-02 0 00:00: 00 Yes [id number] 500mg Take 1 tablet by mouth every 12 (twelve) hours. [facility] metroNIDAZO LE 250 mg tablet 2019-02 00:00: 00 Yes [id number] 500mg Take 2 tablets by mouth every 8 (eight) hours. [facility] ibuprofen 800 mg tablet 2019-02 00:00: 00 Yes [id number] 800mg Take 1 tablet by mouth 3 (three) times daily with meals. [facility] ciprofloxac in HCl 500 mg tablet 2019-02 0 00:00: 00 Yes [id number] 500mg Take 1 tablet by mouth every 12 (twelve) hours. [facility] metroNIDAZO LE 250 mg tablet 2019-02 00:00: 00 Yes [id number] 500mg Take 2 tablets by mouth every 8 (eight) hours. [facility] ibuprofen 800 mg tablet 2019-02 0 00:00: 00 Yes [id number] 800mg Take 1 tablet by mouth 3 (three) times daily with meals. [facility] ciprofloxac in HCl 500 mg tablet 2019-02 0 00:00: 00 Yes [id number] 500mg Take 1 tablet by mouth every 12 (twelve) hours. [facility] metroNIDAZO LE 250 mg tablet 2019-02 0 00:00: 00 Yes [id number] 500mg Take 2 tablets by mouth every 8 (eight) hours. [facility] ibuprofen 800 mg tablet 2019-02 0 00:00: 00 Yes [id number] 800mg Take 1 tablet by mouth 3 (three) times daily with meals. [facility] ibuprofen 800 mg tablet 2019-02 0 00:00: 00 09-26 00:00 :00 No [id number] 800mg Take 1 tablet by mouth 3 (three) times daily with meals. [facility] ciprofloxac in HCl 500 mg tablet 2019-02 0 00:00: 09-22 00:00 :00 No [id number] 500mg Take 1 tablet by mouth every 12 (twelve) hours. [facility] metroNIDAZO LE 250 mg tablet 2019-02 0 00:00: 00 09-22 00:00 :00 No [id number] 500mg Take 2 tablets by mouth every 8 (eight) hours. [facility] acetaminoph en-codeine 300-30 mg tablet 2019-02 0 00:00: 12-26 05:59 :00 No [id number] 1{tbl} Take 1 tablet by mouth every 4 (four) hours as needed for Pain (scale 7-10) for up to 7 days. Indication s: acute pain [facility] acetaminoph en-codeine 300-30 mg tablet 2019-02 0 00:00: 00 12-26 05:59 :00 No [id number] 1{tbl} Take 1 tablet by mouth every 4 (four) hours as needed for Pain (scale 7-10) for up to 7 days. Indication s: acute pain [facility] docusate (COLACE) capsule 100 mg 2019-02 14:00: 00 Yes 100mg 100 mg, Oral, DAILY, First dose on Sun12/18/19 at 0900, Until Discontinu ed, Routine [facility] diphenhydrA MINE (BENADRYL) tablet 50 mg 2019-02 02:00: 00 Yes 50mg 50 mg, Oral, QHS, First dose on Sun12/17/19 at 2100, Until Discontinu ed, Routine [facility] famotidine (PEPCID AC) tablet 20 mg 2019-02 01:00: 00 Yes 20mg 20 mg, Oral, BID, First dose on Sun12/17/19 at 2000, Until Discontinu ed, Routine [facility] silver sulfADIAZIN E (SILVADENE) 1 % cream 2019-02 22:30: 00 Yes Topical, DAILY, First dose on Sun12/17/19 at 1730, Until Discontinu ed, Routine [facility] piperacilli n-tazobacta m (ZOSYN) 3.375 g in NaCl 0.9% (NS) 100 mL MINI-BAG 2019-02 22:15: 00 Yes 3.375g 3.375 g, IV Piggyback, Q6H ABX, First dose on Sun12/17/19 at 1715, Until Discontinu ed, 100 mL
Reas on for Anti-Infec tive: Documented Infection< br>Documen ingris Infection Site: Skin / Soft Tissue
Duration of Therapy: 7 days [facility] enoxaparin (LOVENOX) injection 40 mg 2019-02 22:00: 00 Yes 40mg 40 mg, Subcutaneo us, DAILY, First dose on Sun12/17/19 at 1700, Until Discontinu ed, Routine [facility] lactated ringers IV infusion 1,000 mL 2019-02 21:15: 00 Yes 1000mL at 125 mL/hr, 1,000 mL, IV Infusion, CONTINUOUS , Starting Sun12/17/19 at 1615, Until Discontinu ed, Routine [facility] morpHINE injection 2 mg 2019-02 21:09: 56 Yes 2mg 2 mg, Slow IV Push, Q3HPRN, Starting Sun12/17/19 at 1609, Until Discontinu ed, Routine, Pain (scale 7-10) [facility] ondansetron (ZOFRAN (PF)) injection 4 mg 2019-02 21:02: 17 Yes 4mg 4 mg, Slow IV Push, Q6HPRN, Starting Sun12/17/19 at 1602, Until Discontinu ed, Routine, Nausea and Vomiting (N/V) [facility] HYDROcodone -acetaminop hen (NORCO 5) 5-325 mg tablet 1 tablet 2019-02 21:01: 03 12-18 21:00 :03 No 1{tbl} 1 tablet, Oral, Q6HPRN, Starting Sun12/17/19 at 1601, Until Sun12/19/19 at 1600, Routine, Pain (scale 4-6) [facility] acetaminoph en (TYLENOL) tablet 650 mg 2019-02 21:01: 00 Yes 650mg 650 mg, Oral, Q6HPRN, Starting Sun12/17/19 at 1601, Until Discontinu ed, Routine, Pain (scale 1-3) [facility] nicotine (NICODERM) 21 mg/24 hr patch 1 Patch 2019-02 19:45: 00 Yes 1{patch } 1 Patch, Topical, Administer over 24 Hours, Q24H, First dose on Sun12/17/19 at 1445, Until Discontinu ed, Routine [facility] vancomycin (VANCOCIN) 1,000 mg in NaCl 0.9% (NS) 250 mL VIAL-MATE IV piggyback 2019-02 17:45: 00 12-16 18:09 :00 No 1000mg 1,000 mg, IV Piggyback, ONCE, 1 dose, Sun12/17/19 at 1245, 250 mL
Reas on for Anti-Infec tive: Documented Infection< br>Documen ingris Infection Site: Skin / Soft Tissue
Duration of Therapy: 7 days [facility] HYDROcodone -acetaminop hen (NORCO) 10-325 mg tablet 1 tablet 2019-02 17:30: 00 12-16 16:29 :00 No 1{tbl} 1 tablet, Oral, ONCE, 1 dose, Sun12/17/19 at 1230, Routine [facility] ipratropium -albuteroL (DUONEB) 0.5 mg-3 mg(2.5 mg base)/3 mL nebulizer solution 6 mL 2019-02 16:30: 00 12-16 15:44 :00 No 6mL 6 mL, Inhalation , ONCE, 1 dose, Sun12/17/19 at 1130, Routine [facility] FENTanyl PF (SUBLIMAZE (PF)) injection 50 mcg 2019-02 16:30: 00 12-16 15:41 :00 No 50ug 50 mcg, Slow IV Push, ONCE, 1 dose, Sun12/17/19 at 1130, Routine [facility] amoxicillin -clavulanat e (AUGMENTIN) 875-125 mg per tablet 1 tablet 2019-02 14:00: 00 Yes 1{tbl} 1 tablet, Oral, Q12H, First dose on Sun12/15/19 at 0900, Until Discontinu ed, Routine
Reason for Anti-Infec tive: Documented Infection< br>Documen ingris Infection Site: Skin / Soft Tissue
Duration of Therapy: 7 days [facility] amoxicillin -clavulanat e 875-125 mg per tablet 2019-02 00:00: 00 Yes [id number] 1{tbl} Take 1 tablet by mouth every 12 (twelve) hours. [facility] silver sulfADIAZIN E 1 % cream 2019-02 00:00: 00 Yes [id number] Apply to area(s) 2 (two) times daily. [facility] ondansetron 4 mg tablet 2019-02 00:00: 00 Yes [id number] 4mg Take 1 tablet by mouth every 8 (eight) hours as needed for N/V unresponsi ve to Promethazi ne. [facility] amoxicillin -clavulanat e 875-125 mg per tablet 2019-02 00:00: 00 Yes [id number] 1{tbl} Take 1 tablet by mouth every 12 (twelve) hours. [facility] silver sulfADIAZIN E 1 % cream 2019-02 00:00: 00 Yes [id number] Apply to area(s) 2 (two) times daily. [facility] ondansetron 4 mg tablet 2019-02 00:00: 00 Yes [id number] 4mg Take 1 tablet by mouth every 8 (eight) hours as needed for N/V unresponsi ve to Promethazi ne. [facility] amoxicillin -clavulanat e 875-125 mg per tablet 2019-02 00:00: 00 Yes [id number] 1{tbl} Take 1 tablet by mouth every 12 (twelve) hours. [facility] silver sulfADIAZIN E 1 % cream 2019-02 00:00: 00 Yes [id number] Apply to area(s) 2 (two) times daily. [facility] ondansetron 4 mg tablet 2019-02 00:00: 00 Yes [id number] 4mg Take 1 tablet by mouth every 8 (eight) hours as needed for N/V unresponsi ve to Promethazi ne. [facility] amoxicillin -clavulanat e 875-125 mg per tablet 2019-02 00:00: 00 Yes [id number] 1{tbl} Take 1 tablet by mouth every 12 (twelve) hours. [facility] silver sulfADIAZIN E 1 % cream 2019-02 00:00: 00 Yes [id number] Apply to area(s) 2 (two) times daily. [facility] ondansetron 4 mg tablet 2019-02 00:00: 00 Yes [id number] 4mg Take 1 tablet by mouth every 8 (eight) hours as needed for N/V unresponsi ve to Promethazi ne. [facility] amoxicillin -clavulanat e 875-125 mg per tablet 2019-02 00:00: 00 Yes [id number] 1{tbl} Take 1 tablet by mouth every 12 (twelve) hours. [facility] silver sulfADIAZIN E 1 % cream 2019-02 00:00: 00 Yes [id number] Apply to area(s) 2 (two) times daily. [facility] ondansetron 4 mg tablet 2019-02 0 00:00: 00 Yes [id number] 4mg Take 1 tablet by mouth every 8 (eight) hours as needed for N/V unresponsi ve to Promethazi ne. [facility] amoxicillin -clavulanat e 875-125 mg per tablet 2019-02 0 00:00: 00 Yes [id number] 1{tbl} Take 1 tablet by mouth every 12 (twelve) hours. [facility] silver sulfADIAZIN E 1 % cream 2019-02 0 00:00: 00 Yes [id number] Apply to area(s) 2 (two) times daily. [facility] ondansetron 4 mg tablet 2019-02 0 00:00: 00 Yes [id number] 4mg Take 1 tablet by mouth every 8 (eight) hours as needed for N/V unresponsi ve to Promethazi ne. [facility] amoxicillin -clavulanat e 875-125 mg per tablet 2019-02 0 00:00: 00 Yes [id number] 1{tbl} Take 1 tablet by mouth every 12 (twelve) hours. [facility] silver sulfADIAZIN E 1 % cream 2019-02 0 00:00: 00 Yes [id number] Apply to area(s) 2 (two) times daily. [facility] ondansetron 4 mg tablet 2019-02 0 00:00: 00 Yes [id number] 4mg Take 1 tablet by mouth every 8 (eight) hours as needed for N/V unresponsi ve to Promethazi ne. [facility] amoxicillin -clavulanat e 875-125 mg per tablet 2019-02 0 00:00: 00 Yes [id number] 1{tbl} Take 1 tablet by mouth every 12 (twelve) hours. [facility] silver sulfADIAZIN E 1 % cream 2019-02 0 00:00: 00 Yes [id number] Apply to area(s) 2 (two) times daily. [facility] ondansetron 4 mg tablet 2019-02 00:00: 00 Yes [id number] 4mg Take 1 tablet by mouth every 8 (eight) hours as needed for N/V unresponsi ve to Promethazi ne. [facility] amoxicillin -clavulanat e 875-125 mg per tablet 2019-02 00:00: 00 Yes [id number] 1{tbl} Take 1 tablet by mouth every 12 (twelve) hours. [facility] silver sulfADIAZIN E 1 % cream 2019-02 00:00: 00 Yes [id number] Apply to area(s) 2 (two) times daily. [facility] ondansetron 4 mg tablet 2019-02 00:00: 00 Yes [id number] 4mg Take 1 tablet by mouth every 8 (eight) hours as needed for N/V unresponsi ve to Promethazi ne. [facility] amoxicillin -clavulanat e 875-125 mg per tablet 2019-02 00:00: 09-22 00:00 :00 No [id number] 1{tbl} Take 1 tablet by mouth every 12 (twelve) hours. [facility] silver sulfADIAZIN E 1 % cream 2019-02 00:00: 00 09-22 00:00 :00 No [id number] Apply to area(s) 2 (two) times daily. [facility] ondansetron 4 mg tablet 2019-02 00:00: 09-22 00:00 :00 No [id number] 4mg Take 1 tablet by mouth every 8 (eight) hours as needed for N/V unresponsi ve to Promethazi ne. [facility] HYDROcodone -acetaminop hen 5-325 mg tablet 2019-02 00:00: 00 12-22 05:59 :00 No [id number] 1{tbl} Take 1 tablet by mouth every 4 (four) hours as needed for Pain (scale 4-6) for up to 7 days. Indication s: acute pain [facility] HYDROcodone -acetaminop hen 5-325 mg tablet 2019-02 00:00: 12-22 05:59 :00 No [id number] 1{tbl} Take 1 tablet by mouth every 4 (four) hours as needed for Pain (scale 4-6) for up to 7 days. Indication s: acute pain [facility] HYDROcodone -acetaminop hen 5-325 mg tablet 2019-02 00:00: 12-22 05:59 :00 No [id number] 1{tbl} Take 1 tablet by mouth every 4 (four) hours as needed for Pain (scale 4-6) for up to 7 days. Indication s: acute pain [facility] HYDROcodone -acetaminop hen 5-325 mg tablet 2019-02 00:00: 12-22 05:59 :00 No [id number] 1{tbl} Take 1 tablet by mouth every 4 (four) hours as needed for Pain (scale 4-6) for up to 7 days. Indication s: acute pain [facility] HYDROcodone -acetaminop hen 5-325 mg tablet 2019-02 00:00: 12-22 05:59 :00 No [id number] 1{tbl} Take 1 tablet by mouth every 4 (four) hours as needed for Pain (scale 4-6) for up to 7 days. Indication s: acute pain [facility] HYDROcodone -acetaminop hen 5-325 mg tablet 2019-02 00:00: 12-22 05:59 :00 No [id number] 1{tbl} Take 1 tablet by mouth every 4 (four) hours as needed for Pain (scale 4-6) for up to 7 days. Indication s: acute pain [facility] HYDROcodone -acetaminop hen 5-325 mg tablet 2019-02 00:00: 12-22 05:59 :00 No [id number] 1{tbl} Take 1 tablet by mouth every 4 (four) hours as needed for Pain (scale 4-6) for up to 7 days. Indication s: acute pain [facility] morpHINE injection 4 mg 2019-02 17:02: 50 Yes 4mg 4 mg, Slow IV Push, Q4HPRN, Starting 12/14/19 at 1202, Until Discontinu ed, Routine, Pain (scale 7-10) [facility] FENTanyl PF (SUBLIMAZE (PF)) injection 25 mcg 2019-02 16:45: 00 12-13 15:53 :00 No 25ug 25 mcg, Slow IV Push, ONCE, 1 dose, 12/14/19 at 1145, Routine [facility] HYDROcodone -acetaminop hen (NORCO 5) 5-325 mg tablet 1 tablet 2019-02 15:45: 00 12-15 01:44 :00 No 1{tbl} 1 tablet, Oral, Q4HPRN, Starting 12/14/19 at 1045, Until 12/15/19 at 2044, Routine, Pain (scale 4-6) [facility] FENTanyl PF (SUBLIMAZE (PF)) injection 25 mcg 2019-02 02:13: 56 12-13 17:03 :19 No 25ug 25 mcg, Slow IV Push, Q6HPRN, Starting 12/13/19 at 2113, Until 12/14/19 at 1203, Routine, Pain (scale 7-10) [facility] HYDROcodone -acetaminop hen (NORCO 5) 5-325 mg tablet 1 tablet 2019-02 01:53: 54 12-13 15:42 :59 No 1{tbl} 1 tablet, Oral, Q6HPRN, Starting 12/13/19 at 2053, Until 12/14/19 at 1042, Routine, Pain (scale 4-6) [facility] silver sulfADIAZIN E (SILVADENE) 1 % cream 2019-02 01:00: 00 Yes Topical, BID, First dose on Sun12/12/19 at 2000, Until Discontinu ed, Routine [facility] ondansetron (ZOFRAN (PF)) injection 4 mg 2019-02 18:38: 41 Yes 4mg 4 mg, Slow IV Push, Q6HPRN, Starting Sun12/12/19 at 1338, Until Discontinu ed, Routine, Nausea and Vomiting (N/V) [facility] vancomycin 1250 mg in NS 250 mL RTU IV Piggyback 1,250 mg 2019-02 01:45: 00 12-14 13:44 :12 No 15mg/kg 1,250 mg (rounded from 1,260 mg = 15 mg/kg ?84 kg), IV Piggyback, Q12H ABX, First dose on Leny 12/11/19 at 2045, Until Discontinu ed
Reas on for Anti-Infec tive: Empiric Therapy for Suspected Infection< br>Empiric Therapy Site: Skin / Soft tissue
Duration of therapy: 7 days [facility] HYDROcodone -acetaminop hen (NORCO 5) 5-325 mg tablet 1 tablet 2019-02 01:05: 56 12-13 01:04 :56 No 1{tbl} 1 tablet, Oral, Q6HPRN, Starting Leny 12/11/19 at 2004, Until 12/13/19 at 2003, Routine, Pain (scale 4-6) [facility] FENTanyl PF (SUBLIMAZE (PF)) injection 50 mcg 2019-02 01:05: 03 12-13 01:04 :03 No 50ug 50 mcg, Slow IV Push, Q3HPRN, Starting Leny 12/11/19 at 2004, Until 12/13/19 at 2003, Routine, Pain (scale 7-10) [facility] lactated ringers IV infusion 500 mL 2019-02 16:15: 00 Yes 500mL at 75 mL/hr, 500 mL, IV Infusion, CONTINUOUS , Starting Leny 12/11/19 at 1115, Until Discontinu ed, Routine, PACU [facility] FENTanyl PF (SUBLIMAZE (PF)) injection 25 mcg 2019-02 16:02: 57 12-10 17:48 :58 No 25ug 25 mcg, Slow IV Push, Q5MIN PRN, 4 doses, Starting Leny 12/11/19 at 1102, Until Leny 12/11/19 at 1248, Routine, Pain (scale 4-6), PACU [facility] piperacilli n-tazobacta m (ZOSYN) 3.375 g in NaCl 0.9% (NS) 100 mL MINI-BAG 2019-02 05:45: 00 12-14 13:44 :12 No 3.375g 3.375 g, IV Piggyback, Q6H ABX, First dose (after last reorder) on Sun12/11/19 at 0045, Until Discontinu ed, 100 mL
Reas on for Anti-Infec tive: Documented Infection< br>Documen ingris Infection Site: Skin / Soft Tissue
Duration of Therapy: 7 days [facility] morpHINE injection 4 mg 2019-02 01:45: 00 12-10 00:44 :00 No 4mg 4 mg, Slow IV Push, ONCE, 1 dose, Sun12/10/19 at 2045, STAT [facility] FENTanyl PF (SUBLIMAZE (PF)) injection 50 mcg 2019-02 01:31: 52 12-11 01:06 :33 No 50ug 50 mcg, Slow IV Push, Q3HPRN, Starting Sun12/10/19 at 2030, Until Leny 12/11/19 at 2005, Routine, Pain (scale 7-10) [facility] HYDROcodone -acetaminop hen (NORCO 5) 5-325 mg tablet 1 tablet 2019-02 01:31: 48 12-11 01:06 :33 No 1{tbl} 1 tablet, Oral, Q6HPRN, Starting Sun12/10/19 at 2030, Until Leny 12/11/19 at 2005, Routine, Pain (scale 4-6) [facility] acetaminoph en (TYLENOL) tablet 650 mg 2019-02 01:31: 45 Yes 650mg 650 mg, Oral, Q6HPRN, Starting Sun12/10/19 at 2030, Until Discontinu ed, Routine, Pain (scale 1-3) [facility] iohexol (OMNIPAQUE 350 BULK-100 mL) injection 100 mL 2019-02 00:30: 00 12-10 00:27 :00 No 100mL 100 mL, Intravenou s, ONCE, 1 dose, Sun12/10/19 at 1930, Routine [facility] piperacilli n-tazobacta m (ZOSYN) 3.375 g in NaCl 0.9% (NS) 100 mL MINI-BAG 2019-02 00:30: 00 12-10 00:11 :00 No 3.375g 3.375 g, IV Piggyback, ONCE, 1 dose, Sun12/10/19 at 1930, 100 mL
Reas on for Anti-Infec tive: Documented Infection< br>Documen ingris Infection Site: Skin / Soft Tissue
Duration of Therapy: 7 days [facility] vancomycin 1250 mg in NS 250 mL RTU IV Piggyback 1,250 mg 2019-02 00:30: 00 12-10 02:06 :00 No 15mg/kg 1,250 mg (rounded from 1,258.5 mg = 15 mg/kg ?83.9 kg), IV Piggyback, ONCE, 1 dose, Sun12/10/19 at 1930
Re ason for Anti-Infec tive: Documented Infection< br>Documen ingris Infection Site: Skin / Soft Tissue
Duration of Therapy: 7 days [facility] morpHINE injection 6 mg 2019-02 00:30: 00 12-09 23:28 :00 No 6mg 6 mg, Slow IV Push, ONCE, 1 dose, Sun12/10/19 at 1930, STAT [facility] acetaminoph en-codeine (TYLENOL-CO DEINE #3) 300-30 mg tablet 2019-02 00:00: 00 Yes [id number] Take 1-2 tablets every 6 hours as needed for severe pain. Indication s: acute pain [facility] acetaminoph en-codeine (TYLENOL-CO DEINE #3) 300-30 mg tablet 2019-02 00:00: 00 Yes [id number] Take 1-2 tablets every 6 hours as needed for severe pain. Indication s: acute pain [facility] acetaminoph en-codeine (TYLENOL-CO DEINE #3) 300-30 mg tablet 2019-02 0 00:00: 00 Yes 4647 Take 1-2 tablets every 6 hours as needed for severe pain. Indication s: acute pain [facility] clindamycin 300 mg capsule 2019-02 0-17 00:00: 12-16 04:59 :00 No [id number] 300mg Take 1 capsule by mouth 4 (four) times daily for 10 days. [facility] clindamycin 300 mg capsule 2019-02 0 00:00: 12-16 04:59 :00 No [id number] 300mg Take 1 capsule by mouth 4 (four) times daily for 10 days. [facility] clindamycin 300 mg capsule 2019-02 0 00:00: 12-16 04:59 :00 No [id number] 300mg Take 1 capsule by mouth 4 (four) times daily for 10 days. [facility] clindamycin 300 mg capsule 2019-02 0 00:00: 12-16 04:59 :00 No [id number] 300mg Take 1 capsule by mouth 4 (four) times daily for 10 days. [facility] clindamycin 300 mg capsule 2019-02 0 00:00: 12-16 04:59 :00 No [id number] 300mg Take 1 capsule by mouth 4 (four) times daily for 10 days. [facility] acetaminoph en-codeine (TYLENOL-CO DEINE #3) 300-30 mg tablet 2019-02 0 00:00: 00 12-14 00:00 :00 No [id number] Take 1-2 tablets every 6 hours as needed for severe pain. Indication s: acute pain [facility] acetaminoph en-codeine (TYLENOL-CO DEINE #3) 300-30 mg tablet 2019-02 0- 00:00: 12-14 00:00 :00 No [id number] Take 1-2 tablets every 6 hours as needed for severe pain. Indication s: acute pain [facility] FLUCELVAX QUAD , PF, 60 mcg (15 mcg x 4)/0.5 mL Syrg 904 00:00: 00 Yes ADM 0.5ML IM UTD [facility] FLUCELVAX QUAD , PF, 60 mcg (15 mcg x 4)/0.5 mL Syrg 2019-0 10-23 00:00: 00 Yes ADM 0.5ML IM UTD [facility] FLUCELVAX QUAD , PF, 60 mcg (15 mcg x 4)/0.5 mL Syrg 0 10-23 00:00: 00 Yes ADM 0.5ML IM UTD [facility] FLUCELVAX QUAD , PF, 60 mcg (15 mcg x 4)/0.5 mL Syrg 0 10-23 00:00: 00 Yes ADM 0.5ML IM UTD [facility] FLUCELVAX QUAD , PF, 60 mcg (15 mcg x 4)/0.5 mL Syrg 0 10-23 00:00: 00 Yes ADM 0.5ML IM UTD [facility] FLUCELVAX QUAD , PF, 60 mcg (15 mcg x 4)/0.5 mL Syrg 10-23 00:00: 00 Yes ADM 0.5ML IM UTD [facility] FLUCELVAX QUAD , PF, 60 mcg (15 mcg x 4)/0.5 mL Syrg 0 10-23 00:00: 00 Yes ADM 0.5ML IM UTD [facility] FLUCELVAX QUAD , PF, 60 mcg (15 mcg x 4)/0.5 mL Syrg 0 10-23 00:00: 00 Yes ADM 0.5ML IM UTD [facility] FLUCELVAX QUAD , PF, 60 mcg (15 mcg x 4)/0.5 mL Syrg 0 10-23 00:00: 00 09-26 00:00 :00 No ADM 0.5ML IM UTD [facility] albuterol 90 mcg/actuati on inhaler 18 00:00: 00 Yes [id number] 2{puff} Inhale 2 Puffs every 6 (six) hours as needed for Wheezing or Shortness of Breath. [facility] azithromyci n (ZITHROMAX Z-LAZARO) 250 mg tablet 07-06 00:00: 00 Yes [id number] 250mg Take 1 tablet by mouth daily. Take 500 mg day 1, then 250 mg days 2 to 5. [facility] albuterol 90 mcg/actuati on inhaler 07-06 00:00: 00 Yes [id number] 2{puff} Inhale 2 Puffs every 6 (six) hours as needed for Wheezing or Shortness of Breath. [facility] azithromyci n (ZITHROMAX Z-LAZARO) 250 mg tablet 07-06 00:00: 00 Yes [id number] 250mg Take 1 tablet by mouth daily. Take 500 mg day 1, then 250 mg days 2 to 5. [facility] albuterol 90 mcg/actuati on inhaler 07-06 00:00: 00 Yes [id number] 2{puff} Inhale 2 Puffs every 6 (six) hours as needed for Wheezing or Shortness of Breath. [facility] azithromyci n (ZITHROMAX Z-LAZARO) 250 mg tablet 07-06 00:00: 00 Yes [id number] 250mg Take 1 tablet by mouth daily. Take 500 mg day 1, then 250 mg days 2 to 5. [facility] albuterol 90 mcg/actuati on inhaler 07-06 00:00: 00 Yes [id number] 2{puff} Inhale 2 Puffs every 6 (six) hours as needed for Wheezing or Shortness of Breath. [facility] albuterol 90 mcg/actuati on inhaler 07-06 00:00: 00 Yes [id number] 2{puff} Inhale 2 Puffs every 6 (six) hours as needed for Wheezing or Shortness of Breath. [facility] albuterol 90 mcg/actuati on inhaler 07-06 00:00: 00 Yes [id number] 2{puff} Inhale 2 Puffs every 6 (six) hours as needed for Wheezing or Shortness of Breath. [facility] albuterol 90 mcg/actuati on inhaler 07-06 00:00: 00 Yes [id number] 2{puff} Inhale 2 Puffs every 6 (six) hours as needed for Wheezing or Shortness of Breath. [facility] albuterol 90 mcg/actuati on inhaler 07-06 00:00: 00 Yes [id number] 2{puff} Inhale 2 Puffs every 6 (six) hours as needed for Wheezing or Shortness of Breath. [facility] albuterol 90 mcg/actuati on inhaler 07-06 00:00: 00 Yes [id number] 2{puff} Inhale 2 Puffs every 6 (six) hours as needed for Wheezing or Shortness of Breath. [facility] albuterol 90 mcg/actuati on inhaler 07-06 00:00: 00 Yes [id number] 2{puff} Inhale 2 Puffs every 6 (six) hours as needed for Wheezing or Shortness of Breath. [facility] albuterol 90 mcg/actuati on inhaler 07-06 00:00: 00 Yes [id number] 2{puff} Inhale 2 Puffs every 6 (six) hours as needed for Wheezing or Shortness of Breath. [facility] albuterol 90 mcg/actuati on inhaler 07-06 00:00: 00 Yes [id number] 2{puff} Inhale 2 Puffs every 6 (six) hours as needed for Wheezing or Shortness of Breath. [facility] albuterol 90 mcg/actuati on inhaler 07-06 00:00: 00 Yes [id number] 2{puff} Inhale 2 Puffs every 6 (six) hours as needed for Wheezing or Shortness of Breath. [facility] azithromyci n (ZITHROMAX Z-LAZARO) 250 mg tablet 07-06 00:00: 00 Yes [id number] 250mg Take 1 tablet by mouth daily. Take 500 mg day 1, then 250 mg days 2 to 5. [facility] albuterol 90 mcg/actuati on inhaler 07-06 00:00: 00 Yes [id number] 2{puff} Inhale 2 Puffs every 6 (six) hours as needed for Wheezing or Shortness of Breath. [facility] azithromyci n (ZITHROMAX Z-LAZARO) 250 mg tablet 07-06 00:00: 00 Yes [id number] 250mg Take 1 tablet by mouth daily. Take 500 mg day 1, then 250 mg days 2 to 5. [facility] albuterol 90 mcg/actuati on inhaler 07-06 00:00: 00 Yes [id number] 2{puff} Inhale 2 Puffs every 6 (six) hours as needed for Wheezing or Shortness of Breath. [facility] albuterol 90 mcg/actuati on inhaler 07-06 00:00: 00 Yes [id number] 2{puff} Inhale 2 Puffs every 6 (six) hours as needed for Wheezing or Shortness of Breath. [facility] albuterol 90 mcg/actuati on inhaler 07-06 00:00: 00 Yes [id number] 2{puff} Inhale 2 Puffs every 6 (six) hours as needed for Wheezing or Shortness of Breath. [facility] albuterol 90 mcg/actuati on inhaler 07-06 00:00: 00 Yes [id number] 2{puff} Inhale 2 Puffs every 6 (six) hours as needed for Wheezing or Shortness of Breath. [facility] albuterol 90 mcg/actuati on inhaler 07-06 00:00: 00 Yes [id number] 2{puff} Inhale 2 Puffs every 6 (six) hours as needed for Wheezing or Shortness of Breath. [facility] azithromyci n (ZITHROMAX Z-LAZARO) 250 mg tablet 07-06 00:00: 00 Yes [id number] 250mg Take 1 tablet by mouth daily. Take 500 mg day 1, then 250 mg days 2 to 5. [facility] albuterol 90 mcg/actuati on inhaler 07-06 00:00: 00 Yes [id number] 2{puff} Inhale 2 Puffs every 6 (six) hours as needed for Wheezing or Shortness of Breath. [facility] albuterol 90 mcg/actuati on inhaler 0 18 00:00: 00 Yes [id number] 2{puff} Inhale 2 Puffs every 6 (six) hours as needed for Wheezing or Shortness of Breath. [facility] albuterol 90 mcg/actuati on inhaler 0 18 00:00: 00 Yes [id number] 2{puff} Inhale 2 Puffs every 6 (six) hours as needed for Wheezing or Shortness of Breath. [facility] albuterol 90 mcg/actuati on inhaler 0 18 00:00: 00 Yes [id number] 2{puff} Inhale 2 Puffs every 6 (six) hours as needed for Wheezing or Shortness of Breath. [facility] albuterol 90 mcg/actuati on inhaler 0 18 00:00: 00 Yes [id number] 2{puff} Inhale 2 Puffs every 6 (six) hours as needed for Wheezing or Shortness of Breath. [facility] azithromyci n (ZITHROMAX Z-LAZARO) 250 mg tablet 18 00:00: 00 Yes [id number] 250mg Take 1 tablet by mouth daily. Take 500 mg day 1, then 250 mg days 2 to 5. [facility] albuterol 90 mcg/actuati on inhaler 0 18 00:00: 00 Yes [id number] 2{puff} Inhale 2 Puffs every 6 (six) hours as needed for Wheezing or Shortness of Breath. [facility] albuterol 90 mcg/actuati on inhaler 0 18 00:00: 00 Yes [id number] 2{puff} Inhale 2 Puffs every 6 (six) hours as needed for Wheezing or Shortness of Breath. [facility] albuterol 90 mcg/actuati on inhaler 0 18 00:00: 00 Yes [id number] 2{puff} Inhale 2 Puffs every 6 (six) hours as needed for Wheezing or Shortness of Breath. [facility] albuterol 90 mcg/actuati on inhaler 07-06 00:00: 00 Yes [id number] 2{puff} Inhale 2 Puffs every 6 (six) hours as needed for Wheezing or Shortness of Breath. [facility] albuterol 90 mcg/actuati on inhaler 07-06 00:00: 00 Yes [id number] 2{puff} Inhale 2 Puffs every 6 (six) hours as needed for Wheezing or Shortness of Breath. [facility] azithromyci n (ZITHROMAX Z-LAZARO) 250 mg tablet 07-06 00:00: 00 Yes [id number] 250mg Take 1 tablet by mouth daily. Take 500 mg day 1, then 250 mg days 2 to 5. [facility] albuterol 90 mcg/actuati on inhaler 07-06 00:00: 00 Yes [id number] 2{puff} Inhale 2 Puffs every 6 (six) hours as needed for Wheezing or Shortness of Breath. [facility] albuterol 90 mcg/actuati on inhaler 07-06 00:00: 00 Yes [id number] 2{puff} Inhale 2 Puffs every 6 (six) hours as needed for Wheezing or Shortness of Breath. [facility] albuterol 90 mcg/actuati on inhaler 07-06 00:00: 00 Yes [id number] 2{puff} Inhale 2 Puffs every 6 (six) hours as needed for Wheezing or Shortness of Breath. [facility] albuterol 90 mcg/actuati on inhaler 07-06 00:00: 00 Yes [id number] 2{puff} Inhale 2 Puffs every 6 (six) hours as needed for Wheezing or Shortness of Breath. [facility] albuterol 90 mcg/actuati on inhaler 07-06 00:00: 00 Yes [id number] 2{puff} Inhale 2 Puffs every 6 (six) hours as needed for Wheezing or Shortness of Breath. [facility] albuterol 90 mcg/actuati on inhaler 07-06 00:00: 00 Yes [id number] 2{puff} Inhale 2 Puffs every 6 (six) hours as needed for Wheezing or Shortness of Breath. [facility] azithromyci n (ZITHROMAX Z-LAZARO) 250 mg tablet 07-06 00:00: 00 Yes [id number] 250mg Take 1 tablet by mouth daily. Take 500 mg day 1, then 250 mg days 2 to 5. [facility] albuterol 90 mcg/actuati on inhaler 07-06 00:00: 00 Yes [id number] 2{puff} Inhale 2 Puffs every 6 (six) hours as needed for Wheezing or Shortness of Breath. [facility] azithromyci n (ZITHROMAX Z-LAZARO) 250 mg tablet 07-06 00:00: 00 Yes [id number] 250mg Take 1 tablet by mouth daily. Take 500 mg day 1, then 250 mg days 2 to 5. [facility] albuterol 90 mcg/actuati on inhaler 07-06 00:00: 00 02-02 00:00 :00 No [id number] 2{puff} Inhale 2 Puffs every 6 (six) hours as needed for Wheezing or Shortness of Breath. [facility] albuterol 90 mcg/actuati on inhaler 07-06 00:00: 00 02-02 00:00 :00 No [id number] 2{puff} Inhale 2 Puffs every 6 (six) hours as needed for Wheezing or Shortness of Breath. [facility] albuterol 90 mcg/actuati on inhaler 07-06 00:00: 00 02-02 00:00 :00 No [id number] 2{puff} Inhale 2 Puffs every 6 (six) hours as needed for Wheezing or Shortness of Breath. [facility] albuterol 90 mcg/actuati on inhaler 07-06 00:00: 00 02-02 00:00 :00 No [id number] 2{puff} Inhale 2 Puffs every 6 (six) hours as needed for Wheezing or Shortness of Breath. [facility] azithromyci n (ZITHROMAX Z-LAZARO) 250 mg tablet 2019-0 5-18 00:00: 12-16 00:00 :00 No [id number] 250mg Take 1 tablet by mouth daily. Take 500 mg day 1, then 250 mg days 2 to 5. [facility] azithromyci n (ZITHROMAX Z-LAZARO) 250 mg tablet 2019-0 5-18 00:00: 12-16 00:00 :00 No [id number] 250mg Take 1 tablet by mouth daily. Take 500 mg day 1, then 250 mg days 2 to 5. [facility] azithromyci n (ZITHROMAX Z-LAZARO) 250 mg tablet 2019-0 18 00:00: 12-16 00:00 :00 No [id number] 250mg Take 1 tablet by mouth daily. Take 500 mg day 1, then 250 mg days 2 to 5. [facility] promethazin e-codeine 6.25-10 mg/5 mL syrup 2019-0 5-18 00:00: 07-14 04:59 :00 No [id number] 10mL Take 10 mL by mouth every 8 (eight) hours as needed for Cough for up to 7 days. [facility] promethazin e-codeine 6.25-10 mg/5 mL syrup 2019-0 5-18 00:00: 07-14 04:59 :00 No [id number] 10mL Take 10 mL by mouth every 8 (eight) hours as needed for Cough for up to 7 days. [facility] promethazin e-codeine 6.25-10 mg/5 mL syrup 2019-0 5-18 00:00: 07-14 04:59 :00 No [id number] 10mL Take 10 mL by mouth every 8 (eight) hours as needed for Cough for up to 7 days. [facility] promethazin e-codeine 6.25-10 mg/5 mL syrup 2019-0 5-18 00:00: 07-14 04:59 :00 No [id number] 10mL Take 10 mL by mouth every 8 (eight) hours as needed for Cough for up to 7 days. [facility] promethazin e-codeine 6.25-10 mg/5 mL syrup 2020-0 18 00:00: 00 07-14 04:59 :00 No [id number] 10mL Take 10 mL by mouth every 8 (eight) hours as needed for Cough for up to 7 days. [facility] promethazin e-codeine 6.25-10 mg/5 mL syrup 0 18 00:00: 07-14 04:59 :00 No [id number] 10mL Take 10 mL by mouth every 8 (eight) hours as needed for Cough for up to 7 days. [facility] promethazin e-codeine 6.25-10 mg/5 mL syrup 0 18 00:00: 07-14 04:59 :00 No [id number] 10mL Take 10 mL by mouth every 8 (eight) hours as needed for Cough for up to 7 days. [facility] diphenhydrA MINE 50 mg capsule 05-30 00:00: 00 Yes 50mg Take 1 capsule by mouth at bedtime. [facility] diphenhydrA MINE-zinc acetate (BENADRYL EXTRA STRENGTH) cream 05-30 00:00: 00 Yes Apply to area(s) 2 (two) times daily as needed for Itching. [facility] diphenhydrA MINE 50 mg capsule 05-30 00:00: 00 Yes 50mg Take 1 capsule by mouth at bedtime. [facility] diphenhydrA MINE-zinc acetate (BENADRYL EXTRA STRENGTH) cream 05-30 00:00: 00 Yes Apply to area(s) 2 (two) times daily as needed for Itching. [facility] diphenhydrA MINE 50 mg capsule 05-30 00:00: 00 Yes 50mg Take 1 capsule by mouth at bedtime. [facility] diphenhydrA MINE-zinc acetate (BENADRYL EXTRA STRENGTH) cream 05-30 00:00: 00 Yes Apply to area(s) 2 (two) times daily as needed for Itching. [facility] diphenhydrA MINE 50 mg capsule 05-30 00:00: 00 Yes 50mg Take 1 capsule by mouth at bedtime. [facility] diphenhydrA MINE-zinc acetate (BENADRYL EXTRA STRENGTH) cream 05-30 00:00: 00 Yes Apply to area(s) 2 (two) times daily as needed for Itching. [facility] diphenhydrA MINE 50 mg capsule 05-30 00:00: 00 Yes 50mg Take 1 capsule by mouth at bedtime. [facility] diphenhydrA MINE 50 mg capsule 05-30 00:00: 00 Yes 50mg Take 1 capsule by mouth at bedtime. [facility] diphenhydrA MINE 50 mg capsule 05-30 00:00: 00 Yes 50mg Take 1 capsule by mouth at bedtime. [facility] diphenhydrA MINE 50 mg capsule 05-30 00:00: 00 Yes 50mg Take 1 capsule by mouth at bedtime. [facility] diphenhydrA MINE 50 mg capsule 05-30 00:00: 00 Yes 50mg Take 1 capsule by mouth at bedtime. [facility] diphenhydrA MINE 50 mg capsule 05-30 00:00: 00 Yes 50mg Take 1 capsule by mouth at bedtime. [facility] diphenhydrA MINE 50 mg capsule 05-30 00:00: 00 Yes 50mg Take 1 capsule by mouth at bedtime. [facility] diphenhydrA MINE 50 mg capsule 05-30 00:00: 00 Yes 50mg Take 1 capsule by mouth at bedtime. [facility] diphenhydrA MINE-zinc acetate (BENADRYL EXTRA STRENGTH) cream 05-30 00:00: 00 Yes Apply to area(s) 2 (two) times daily as needed for Itching. [facility] diphenhydrA MINE 50 mg capsule 05-30 00:00: 00 Yes 50mg Take 1 capsule by mouth at bedtime. [facility] diphenhydrA MINE 50 mg capsule 05-30 00:00: 00 Yes 50mg Take 1 capsule by mouth at bedtime. [facility] diphenhydrA MINE-zinc acetate (BENADRYL EXTRA STRENGTH) cream 05-30 00:00: 00 Yes Apply to area(s) 2 (two) times daily as needed for Itching. [facility] diphenhydrA MINE 50 mg capsule 05-30 00:00: 00 Yes 50mg Take 1 capsule by mouth at bedtime. [facility] diphenhydrA MINE-zinc acetate (BENADRYL EXTRA STRENGTH) cream 05-30 00:00: 00 Yes Apply to area(s) 2 (two) times daily as needed for Itching. [facility] diphenhydrA MINE 50 mg capsule 05-30 00:00: 00 Yes 50mg Take 1 capsule by mouth at bedtime. [facility] diphenhydrA MINE-zinc acetate (BENADRYL EXTRA STRENGTH) cream 05-30 00:00: 00 Yes Apply to area(s) 2 (two) times daily as needed for Itching. [facility] diphenhydrA MINE 50 mg capsule 05-30 00:00: 00 Yes 50mg Take 1 capsule by mouth at bedtime. [facility] diphenhydrA MINE 50 mg capsule 05-30 00:00: 00 Yes 50mg Take 1 capsule by mouth at bedtime. [facility] diphenhydrA MINE-zinc acetate (BENADRYL EXTRA STRENGTH) cream 05-30 00:00: 00 Yes Apply to area(s) 2 (two) times daily as needed for Itching. [facility] diphenhydrA MINE-zinc acetate (BENADRYL EXTRA STRENGTH) cream 05-30 00:00: 00 Yes Apply to area(s) 2 (two) times daily as needed for Itching. [facility] diphenhydrA MINE 50 mg capsule 05-30 00:00: 00 Yes 50mg Take 1 capsule by mouth at bedtime. [facility] diphenhydrA MINE-zinc acetate (BENADRYL EXTRA STRENGTH) cream 05-30 00:00: 00 Yes Apply to area(s) 2 (two) times daily as needed for Itching. [facility] diphenhydrA MINE 50 mg capsule 05-30 00:00: 00 Yes 50mg Take 1 capsule by mouth at bedtime. [facility] diphenhydrA MINE-zinc acetate (BENADRYL EXTRA STRENGTH) cream 05-30 00:00: 00 Yes Apply to area(s) 2 (two) times daily as needed for Itching. [facility] diphenhydrA MINE 50 mg capsule 05-30 00:00: 00 09-22 00:00 :00 No 50mg Take 1 capsule by mouth at bedtime. [facility] diphenhydrA MINE 50 mg capsule 05-30 00:00: 00 09-22 00:00 :00 No 50mg Take 1 capsule by mouth at bedtime. [facility] diphenhydrA MINE-zinc acetate (BENADRYL EXTRA STRENGTH) cream 05-30 00:00: 00 12-16 00:00 :00 No Apply to area(s) 2 (two) times daily as needed for Itching. [facility] diphenhydrA MINE-zinc acetate (BENADRYL EXTRA STRENGTH) cream 05-30 00:00: 00 12-16 00:00 :00 No Apply to area(s) 2 (two) times daily as needed for Itching. [facility] diphenhydrA MINE-zinc acetate (BENADRYL EXTRA STRENGTH) cream 05-30 00:00: 00 12-16 00:00 :00 No Apply to area(s) 2 (two) times daily as needed for Itching. [facility] Immunizations Ordered Immunization Name Filled Immunization Name Date Status Comments Source Pneumococcal 20 Conjugate, PCV20 (Prevnar 20) 2021-12-05 00:00:00 [facility] Influenza Virus Vaccine Quad IM, Preserv and ABX Free 6 MO-64 YRS 2021-12-05 00:00:00 Completed [facility] Pneumococcal 20 Conjugate, PCV20 (Prevnar 20) 2021-12-05 00:00:00 Completed [facility] Influenza Virus Vaccine Quad IM, Preserv and ABX Free 6 MO-64 YRS 2021-12-05 00:00:00 Completed [facility] Pneumococcal 20 Conjugate, PCV20 (Prevnar 20) 2021-12-05 00:00:00 Completed [facility] Influenza Virus Vaccine Quad IM, Preserv and ABX Free 6 MO-64 YRS 2021-12-05 00:00:00 Completed [facility] Pneumococcal 20 Conjugate, PCV20 (Prevnar 20) 2021-12-05 00:00:00 Completed [facility] Influenza Virus Vaccine Quad IM, Preserv and ABX Free 6 MO-64 YRS 2021-12-05 00:00:00 Completed [facility] Pneumococcal 20 Conjugate, PCV20 (Prevnar 20) 2021-12-05 00:00:00 Completed [facility] Influenza Virus Vaccine Quad IM, Preserv and ABX Free 6 MO-64 YRS 2021-12-05 00:00:00 Completed [facility] Pneumococcal 20 Conjugate, PCV20 (Prevnar 20) 2021-12-05 00:00:00 Completed [facility] Influenza Virus Vaccine Quad IM, Preserv and ABX Free 6 MO-64 YRS 2021-12-05 00:00:00 Completed [facility] Pneumococcal 20 Conjugate, PCV20 (Prevnar 20) 2021-12-05 00:00:00 Completed [facility] Influenza Virus Vaccine Quad IM, Preserv and ABX Free 6 MO-64 YRS 2021-12-05 00:00:00 Completed [facility] Pneumococcal 20 Conjugate, PCV20 (Prevnar 20) 2021-12-05 00:00:00 Completed [facility] Influenza Virus Vaccine Quad IM, Preserv and ABX Free 6 MO-64 YRS 2021-12-05 00:00:00 Completed [facility] Pneumococcal 20 Conjugate, PCV20 (Prevnar 20) 2021-12-05 00:00:00 Completed [facility] Influenza Virus Vaccine Quad IM, Preserv and ABX Free 6 MO-64 YRS 2021-12-05 00:00:00 Completed [facility] Pneumococcal 20 Conjugate, PCV20 (Prevnar 20) 2021-12-05 00:00:00 Completed [facility] Influenza Virus Vaccine Quad IM, Preserv and ABX Free 6 MO-64 YRS 2021-12-05 00:00:00 Completed [facility] Pneumococcal 20 Conjugate, PCV20 (Prevnar 20) 2021-12-05 00:00:00 Completed [facility] Influenza Virus Vaccine Quad IM, Preserv and ABX Free 6 MO-64 YRS 2021-12-05 00:00:00 Completed [facility] Pneumococcal 20 Conjugate, PCV20 (Prevnar 20) 2021-12-05 00:00:00 Completed [facility] Influenza Virus Vaccine Quad IM, Preserv and ABX Free 6 MO-64 YRS 2021-12-05 00:00:00 Completed [facility] Pneumococcal 20 Conjugate, PCV20 (Prevnar 20) 2021-12-05 00:00:00 Completed [facility] Influenza Virus Vaccine Quad IM, Preserv and ABX Free 6 MO-64 YRS 2021-12-05 00:00:00 Completed [facility] Pneumococcal 20 Conjugate, PCV20 (Prevnar 20) 2021-12-05 00:00:00 Completed [facility] Influenza Virus Vaccine Quad IM, Preserv and ABX Free 6 MO-64 YRS 2021-12-05 00:00:00 Completed [facility] Pneumococcal 20 Conjugate, PCV20 (Prevnar 20) 2021-12-05 00:00:00 Completed [facility] Influenza Virus Vaccine Quad IM, Preserv and ABX Free 6 MO-64 YRS 2021-12-05 00:00:00 Completed [facility] Pneumococcal 20 Conjugate, PCV20 (Prevnar 20) 2021-12-05 00:00:00 [facility]pleted [facility] [facility] Vaccine Quad IM, Preserv and ABX Free 6 MO-64 YRS 2021-12-05 00:00:00 [facility] Pneumococcal 20 Conjugate, PCV20 (Prevnar 20) 2021-12-05 00:00:00 [facility] Influenza Virus Vaccine Quad IM, Preserv and ABX Free 6 MO-64 YRS 2021-12-05 00:00:00 Completed [facility] Pneumococcal 20 Conjugate, PCV20 (Prevnar 20) 2021-12-05 00:00:00 Completed [facility] Influenza Virus Vaccine Quad IM, Preserv and ABX Free 6 MO-64 YRS 2021-12-05 00:00:00 Completed [facility] Pneumococcal 20 Conjugate, PCV20 (Prevnar 20) 2021-12-05 00:00:00 Completed [facility] Influenza Virus Vaccine Quad IM, Preserv and ABX Free 6 MO-64 YRS 2021-12-05 00:00:00 Completed [facility] Pneumococcal 20 Conjugate, PCV20 (Prevnar 20) 2021-12-05 00:00:00 Completed [facility] Influenza Virus Vaccine Quad IM, Preserv and ABX Free 6 MO-64 YRS 2021-12-05 00:00:00 Completed [facility] Pneumococcal 20 Conjugate, PCV20 (Prevnar 20) 2021-12-05 00:00:00 Completed [facility] Influenza Virus Vaccine Quad IM, Preserv and ABX Free 6 MO-64 YRS 2021-12-05 00:00:00 Completed [facility] Pneumococcal 20 Conjugate, PCV20 (Prevnar 20) 2021-12-05 00:00:00 Completed [facility] Influenza Virus Vaccine Quad IM, Preserv and ABX Free 6 MO-64 YRS 2021-12-05 00:00:00 Completed [facility] Pneumococcal 20 Conjugate, PCV20 (Prevnar 20) 2021-12-05 00:00:00 Completed [facility] Influenza Virus Vaccine Quad IM, Preserv and ABX Free 6 MO-64 YRS 2021-12-05 00:00:00 Completed [facility] Pneumococcal 20 Conjugate, PCV20 (Prevnar 20) 2021-12-05 00:00:00 Completed [facility] Influenza Virus Vaccine Quad IM, Preserv and ABX Free 6 MO-64 YRS 2021-12-05 00:00:00 Completed [facility] Pneumococcal 20 Conjugate, PCV20 (Prevnar 20) 2021-12-05 00:00:00 Completed [facility] Influenza Virus Vaccine Quad IM, Preserv and ABX Free 6 MO-64 YRS 2021-12-05 00:00:00 Completed [facility] Pneumococcal 20 Conjugate, PCV20 (Prevnar 20) 2021-12-05 00:00:00 Completed [facility] Influenza Virus Vaccine Quad IM, Preserv and ABX Free 6 MO-64 YRS 2021-12-05 00:00:00 Completed [facility] Pneumococcal 20 Conjugate, PCV20 (Prevnar 20) 2021-12-05 00:00:00 Completed [facility] Influenza Virus Vaccine Quad IM, Preserv and ABX Free 6 MO-64 YRS 2021-12-05 00:00:00 Completed [facility] Pneumococcal 20 Conjugate, PCV20 (Prevnar 20) 2021-12-05 00:00:00 Completed [facility] Influenza Virus Vaccine Quad IM, Preserv and ABX Free 6 MO-64 YRS 2021-12-05 00:00:00 Completed [facility] Pneumococcal 20 Conjugate, PCV20 (Prevnar 20) 2021-12-05 00:00:00 Completed [facility] Influenza Virus Vaccine Quad IM, Preserv and ABX Free 6 MO-64 YRS 2021-12-05 00:00:00 Completed [facility] Pneumococcal 20 Conjugate, PCV20 (Prevnar 20) 2021-12-05 00:00:00 Completed [facility] Influenza Virus Vaccine Quad IM, Preserv and ABX Free 6 MO-64 YRS 2021-12-05 00:00:00 Completed [facility] Pneumococcal 20 Conjugate, PCV20 (Prevnar 20) 2021-12-05 00:00:00 Completed [facility] Influenza Virus Vaccine Quad IM, Preserv and ABX Free 6 MO-64 YRS 2021-12-05 00:00:00 Completed [facility] Pneumococcal 20 Conjugate, PCV20 (Prevnar 20) 2021-12-05 00:00:00 Completed [facility] Influenza Virus Vaccine Quad IM, Preserv and ABX Free 6 MO-64 YRS 2021-12-05 00:00:00 Completed [facility] Pneumococcal 20 Conjugate, PCV20 (Prevnar 20) 2021-12-05 00:00:00 Completed [facility] Influenza Virus Vaccine Quad IM, Preserv and ABX Free 6 MO-64 YRS 2021-12-05 00:00:00 Completed [facility] Pneumococcal 20 Conjugate, PCV20 (Prevnar 20) 2021-12-05 00:00:00 Completed [facility] Influenza Virus Vaccine Quad IM, Preserv and ABX Free 6 MO-64 YRS 2021-12-05 00:00:00 Completed [facility] Pneumococcal 20 Conjugate, PCV20 (Prevnar 20) 2021-12-05 00:00:00 Completed [facility] Influenza Virus Vaccine Quad IM, Preserv and ABX Free 6 MO-64 YRS 2021-12-05 00:00:00 Completed [facility] Pneumococcal 20 Conjugate, PCV20 (Prevnar 20) 2021-12-05 00:00:00 Completed [facility] Influenza Virus Vaccine Quad IM, Preserv and ABX Free 6 MO-64 YRS 2021-12-05 00:00:00 Completed [facility] Pneumococcal 20 Conjugate, PCV20 (Prevnar 20) 2021-12-05 00:00:00 Completed [facility] Influenza Virus Vaccine Quad IM, Preserv and ABX Free 6 MO-64 YRS 2021-12-05 00:00:00 Completed [facility] Pneumococcal 20 Conjugate, PCV20 (Prevnar 20) 2021-12-05 00:00:00 Completed [facility] Influenza Virus Vaccine Quad IM, Preserv and ABX Free 6 MO-64 YRS 2021-12-05 00:00:00 Completed [facility] Pneumococcal 20 Conjugate, PCV20 (Prevnar 20) 2021-12-05 00:00:00 Completed [facility] Influenza Virus Vaccine Quad IM, Preserv and ABX Free 6 MO-64 YRS 2021-12-05 00:00:00 Completed [facility] Pneumococcal 20 Conjugate, PCV20 (Prevnar 20) 2021-12-05 00:00:00 Completed [facility] Influenza Virus Vaccine Quad IM, Preserv and ABX Free 6 MO-64 YRS 2021-12-05 00:00:00 Completed [facility] Pneumococcal 20 Conjugate, PCV20 (Prevnar 20) 2021-12-05 00:00:00 Completed [facility] Influenza Virus Vaccine Quad IM, Preserv and ABX Free 6 MO-64 YRS 2021-12-05 00:00:00 Completed [facility] Pneumococcal 20 Conjugate, PCV20 (Prevnar 20) 2021-12-05 00:00:00 Completed [facility] Influenza Virus Vaccine Quad IM, Preserv and ABX Free 6 MO-64 YRS 2021-12-05 00:00:00 Completed [facility] Pneumococcal 20 Conjugate, PCV20 (Prevnar 20) 2021-12-05 00:00:00 Completed [facility] Influenza Virus Vaccine Quad IM, Preserv and ABX Free 6 MO-64 YRS 2021-12-05 00:00:00 Completed [facility] Pneumococcal 20 Conjugate, PCV20 (Prevnar 20) 2021-12-05 00:00:00 Completed [facility] Influenza Virus Vaccine Quad IM, Preserv and ABX Free 6 MO-64 YRS 2021-12-05 00:00:00 Completed [facility] Pneumococcal 20 Conjugate, PCV20 (Prevnar 20) 2021-12-05 00:00:00 Completed [facility] Influenza Virus Vaccine Quad IM, Preserv and ABX Free 6 MO-64 YRS 2021-12-05 00:00:00 Completed [facility] Pneumococcal 20 Conjugate, PCV20 (Prevnar 20) 2021-12-05 00:00:00 Completed [facility] Influenza Virus Vaccine Quad IM, Preserv and ABX Free 6 MO-64 YRS 2021-12-05 00:00:00 Completed [facility] Pneumococcal 20 Conjugate, PCV20 (Prevnar 20) 2021-12-05 00:00:00 Completed [facility] Influenza Virus Vaccine Quad IM, Preserv and ABX Free 6 MO-64 YRS 2021-12-05 00:00:00 Completed [facility] Pneumococcal 20 Conjugate, PCV20 (Prevnar 20) 2021-12-05 00:00:00 Completed [facility] Influenza Virus Vaccine Quad IM, Preserv and ABX Free 6 MO-64 YRS 2021-12-05 00:00:00 Completed [facility] Pneumococcal 20 Conjugate, PCV20 (Prevnar 20) 2021-12-05 00:00:00 Completed [facility] Influenza Virus Vaccine Quad IM, Preserv and ABX Free 6 MO-64 YRS 2021-12-05 00:00:00 Completed [facility] Pneumococcal 20 Conjugate, PCV20 (Prevnar 20) 2021-12-05 00:00:00 Completed [facility] Influenza Virus Vaccine Quad IM, Preserv and ABX Free 6 MO-64 YRS 2021-12-05 00:00:00 Completed [facility] Pneumococcal 20 Conjugate, PCV20 (Prevnar 20) 2021-12-05 00:00:00 Completed [facility] Influenza Virus Vaccine Quad IM, Preserv and ABX Free 6 MO-64 YRS 2021-12-05 00:00:00 Completed [facility] Pneumococcal 20 Conjugate, PCV20 (Prevnar 20) 2021-12-05 00:00:00 Completed [facility] Influenza Virus Vaccine Quad IM, Preserv and ABX Free 6 MO-64 YRS 2021-12-05 00:00:00 Completed [facility] Pneumococcal 20 Conjugate, PCV20 (Prevnar 20) 2021-12-05 00:00:00 Completed [facility] Influenza Virus Vaccine Quad IM, Preserv and ABX Free 6 MO-64 YRS 2021-12-05 00:00:00 Completed [facility] Pneumococcal 20 Conjugate, PCV20 (Prevnar 20) 2021-12-05 00:00:00 Completed [facility] Influenza Virus Vaccine Quad IM, Preserv and ABX Free 6 MO-64 YRS 2021-12-05 00:00:00 Completed [facility] Pneumococcal 20 Conjugate, PCV20 (Prevnar 20) 2021-12-05 00:00:00 Completed [facility] Influenza Virus Vaccine Quad IM, Preserv and ABX Free 6 MO-64 YRS 2021-12-05 00:00:00 Completed [facility] Influenza Virus Vaccine 2019-10-24 00:00:00 Completed [facility] Influenza Virus Vaccine 2019-10-24 00:00:00 Completed [facility] Influenza Virus Vaccine 2019-10-24 00:00:00 Completed [facility] Influenza Virus Vaccine 2019-10-24 00:00:00 Completed [facility] Influenza Virus Vaccine 2019-10-24 00:00:00 Completed [facility] Influenza Virus Vaccine 2019-10-24 00:00:00 Completed [facility] Influenza Virus Vaccine 2019-10-24 00:00:00 Completed [facility] Influenza Virus Vaccine 2019-10-24 00:00:00 Completed [facility] Influenza Virus Vaccine 2019-10-24 00:00:00 Completed [facility] Influenza Virus Vaccine 2019-10-24 00:00:00 Completed [facility] Influenza Virus Vaccine 2019-10-24 00:00:00 Completed [facility] Influenza Virus Vaccine 2019-10-24 00:00:00 Completed [facility] Influenza Virus Vaccine 2019-10-24 00:00:00 Completed [facility] Influenza Virus Vaccine 2019-10-24 00:00:00 Completed [facility] Influenza Virus Vaccine 2019-10-24 00:00:00 Completed [facility] Influenza Virus Vaccine 2019-10-24 00:00:00 Completed [facility] Influenza Virus Vaccine 2019-10-24 00:00:00 Completed [facility] Influenza Virus Vaccine 2019-10-24 00:00:00 Completed [facility] Influenza Virus Vaccine 2019-10-24 00:00:00 Completed [facility] Influenza Virus Vaccine 2019-10-24 00:00:00 Completed [facility] Influenza Virus Vaccine 2019-10-24 00:00:00 Completed [facility] Influenza Virus Vaccine 2019-10-24 00:00:00 Completed [facility] Influenza Virus Vaccine 2019-10-24 00:00:00 Completed [facility] Influenza Virus Vaccine 2019-10-24 00:00:00 Completed [facility] Influenza Virus Vaccine 2019-10-24 00:00:00 Completed [facility] Influenza Virus Vaccine 2019-10-24 00:00:00 Completed [facility] Influenza Virus Vaccine 2019-10-24 00:00:00 Completed [facility] Influenza Virus Vaccine 2019-10-24 00:00:00 Completed [facility] Influenza Virus Vaccine 2019-10-24 00:00:00 Completed [facility] Influenza Virus Vaccine 2019-10-24 00:00:00 Completed [facility] Influenza Virus Vaccine 2019-10-24 00:00:00 Completed [facility] Influenza Virus Vaccine 2019-10-24 00:00:00 Completed [facility] Influenza Virus Vaccine 2019-10-24 00:00:00 Completed [facility] Influenza Virus Vaccine 2019-10-24 00:00:00 Completed [facility] Influenza Virus Vaccine 2019-10-24 00:00:00 Completed [facility] Influenza Virus Vaccine 2019-10-24 00:00:00 Completed [facility] Influenza Virus Vaccine 2019-10-24 00:00:00 Completed [facility] Influenza Virus Vaccine 2019-10-24 00:00:00 Completed [facility] Influenza Virus Vaccine 2019-10-24 00:00:00 Completed [facility] Influenza Virus Vaccine 2019-10-24 00:00:00 Completed [facility] Influenza Virus Vaccine 2019-10-24 00:00:00 Completed [facility] Influenza Virus Vaccine 2019-10-24 00:00:00 Completed [facility] Influenza Virus Vaccine 2019-10-24 00:00:00 Completed [facility] Influenza Virus Vaccine 2019-10-24 00:00:00 Completed [facility] Influenza Virus Vaccine 2019-10-24 00:00:00 Completed [facility] Influenza Virus Vaccine 2019-10-24 00:00:00 Completed [facility] Influenza Virus Vaccine 2019-10-24 00:00:00 Completed [facility] Influenza Virus Vaccine 2019-10-24 00:00:00 Completed [facility] Influenza Virus Vaccine 2019-10-24 00:00:00 Completed [facility] Influenza Virus Vaccine 2019-10-24 00:00:00 Completed [facility] Influenza Virus Vaccine 2019-10-24 00:00:00 Completed [facility] Influenza Virus Vaccine 2019-10-24 00:00:00 Completed [facility] Influenza Virus Vaccine 2019-10-24 00:00:00 Completed [facility] Influenza Virus Vaccine 2019-10-24 00:00:00 Completed [facility] Influenza Virus Vaccine 2019-10-24 00:00:00 Completed [facility] Influenza Virus Vaccine 2019-10-24 00:00:00 Completed [facility] Influenza Virus Vaccine 2019-10-24 00:00:00 Completed [facility] Influenza Virus Vaccine 2019-10-24 00:00:00 Completed [facility] Influenza Virus Vaccine 2019-10-24 00:00:00 Completed [facility] Influenza Virus Vaccine 2019-10-24 00:00:00 Completed [facility] Influenza Virus Vaccine 2019-10-24 00:00:00 Completed [facility] Influenza Virus Vaccine 2019-10-24 00:00:00 Completed [facility] Influenza Virus Vaccine 2019-10-24 00:00:00 Completed [facility] Influenza Virus Vaccine 2019-10-24 00:00:00 Completed [facility] Influenza Virus Vaccine 2019-10-24 00:00:00 Completed [facility] Influenza Virus Vaccine 2019-10-24 00:00:00 Completed [facility] Influenza Virus Vaccine 2019-10-24 00:00:00 Completed [facility] Influenza Virus Vaccine 2019-10-24 00:00:00 [facility]pleted [facility] TD, NOS 2016-05-12 00:00:00 Completed [facility] TD, NOS 2016-05-12 00:00:00 Completed [facility] TD, NOS 2016-05-12 00:00:00 Completed [facility] TD, NOS 2016-05-12 00:00:00 Completed [facility] TD, NOS 2016-05-12 00:00:00 Completed [facility] TD, NOS 2016-05-12 00:00:00 Completed [facility] TD, NOS 2016-05-12 00:00:00 Completed [facility] Td 2016-05-12 00:00:00 Completed [facility] TD, NOS 2016-05-12 00:00:00 Completed [facility] TD, NOS 2016-05-12 00:00:00 Completed [facility] TD, NOS 2016-05-12 00:00:00 Completed [facility] TD, NOS 2016-05-12 00:00:00 Completed [facility] TD, NOS 2016-05-12 00:00:00 Completed [facility] TD, NOS 2016-05-12 00:00:00 Completed [facility] Td 2016-05-12 00:00:00 Completed [facility] TD, NOS 2016-05-12 00:00:00 Completed [facility] TD, NOS 2016-05-12 00:00:00 Completed [facility] TD, NOS 2016-05-12 00:00:00 [facility]pleted [facility] TD, NOS 2016-05-12 00:00:00 Completed [facility] TD, NOS 2016-05-12 00:00:00 Completed [facility] TD, NOS 2016-05-12 00:00:00 Completed [facility] TD, NOS 2016-05-12 00:00:00 Completed [facility] TD, NOS 2016-05-12 00:00:00 Completed [facility] TD, NOS 2016-05-12 00:00:00 Completed [facility] TD, NOS 2016-05-12 00:00:00 Completed [facility] TD, NOS 2016-05-12 00:00:00 Completed [facility] TD, NOS 2016-05-12 00:00:00 Completed [facility] TD, NOS 2016-05-12 00:00:00 Completed [facility] TD, NOS 2016-05-12 00:00:00 Completed [facility] TD, NOS 2016-05-12 00:00:00 Completed [facility] TD, NOS 2016-05-12 00:00:00 Completed [facility] TD, NOS 2016-05-12 00:00:00 Completed [facility] TD, NOS 2016-05-12 00:00:00 Completed [facility] TD, NOS 2016-05-12 00:00:00 Completed [facility] TD, NOS 2016-05-12 00:00:00 Completed [facility] TD, NOS 2016-05-12 00:00:00 Completed [facility] TD, NOS 2016-05-12 00:00:00 Completed [facility] TD, NOS 2016-05-12 00:00:00 Completed [facility] Td 2016-05-12 00:00:00 Completed [facility] Td 2016-05-12 00:00:00 Completed [facility] Td 2016-05-12 00:00:00 Completed [facility] Td 2016-05-12 00:00:00 Completed [facility] Td 2016-05-12 00:00:00 Completed [facility] Td 2016-05-12 00:00:00 Completed [facility] Td 2016-05-12 00:00:00 Completed [facility] Td 2016-05-12 00:00:00 Completed [facility] Td 2016-05-12 00:00:00 [facility] Td 2016-05-12 00:00:00 [facility] Td 2016-05-12 00:00:00 Completed [facility] Td 2016-05-12 00:00:00 Completed [facility] Td 2016-05-12 00:00:00 Completed [facility] Td 2016-05-12 00:00:00 Completed [facility] Td 2016-05-12 00:00:00 Completed [facility] Td 2016-05-12 00:00:00 Completed [facility] Td 2016-05-12 00:00:00 Completed [facility] Td 2016-05-12 00:00:00 Completed [facility] Td 2016-05-12 00:00:00 Completed [facility] Td 2016-05-12 00:00:00 Completed [facility] Td 2016-05-12 00:00:00 Completed [facility] Td 2016-05-12 00:00:00 Completed [facility] Td 2016-05-12 00:00:00 Completed [facility] Td 2016-05-12 00:00:00 Completed [facility] Td 2016-05-12 00:00:00 Completed [facility] Td 2016-05-12 00:00:00 Completed [facility] Td 2016-05-12 00:00:00 Completed [facility] Td 2016-05-12 00:00:00 Completed [facility] Td 2016-05-12 00:00:00 Completed [facility] Td 2016-05-12 00:00:00 Completed [facility] Td 2016-05-12 00:00:00 Completed [facility] Td 2016-05-12 00:00:00 Completed [facility] Td 2016-05-12 00:00:00 Completed [facility] Td 2016-05-12 00:00:00 Completed [facility] Td 2016-05-12 00:00:00 Completed [facility] Td 2016-05-12 00:00:00 Completed [facility] Td 2016-05-12 00:00:00 Completed [facility] Td 2016-05-12 00:00:00 Completed [facility] Td 2016-05-12 00:00:00 Completed [facility] Td 2016-05-12 00:00:00 Completed [facility] Td 2016-05-12 00:00:00 Completed [facility] Td 2016-05-12 00:00:00 Completed [facility] TD, NOS Unknown Completed [facility] Influenza Virus Vaccine Unknown Completed [facility] Pneumococcal 20 Conjugate, PCV20 (Prevnar 20) Unknown Completed [facility] Influenza Virus Vaccine Quad IM, Preserv and ABX Free 6 MO-64 YRS (FLUCELVAX) Unknown Completed [facility] TD, NOS Unknown Completed [facility] Influenza Virus Vaccine Unknown Completed [facility] Pneumococcal 20 Conjugate, PCV20 (Prevnar 20) Unknown Completed [facility] Influenza Virus Vaccine Quad IM, Preserv and ABX Free 6 MO-64 YRS (FLUCELVAX) Unknown Completed [facility] TD, NOS Unknown Completed [facility] Influenza Virus Vaccine Unknown Completed [facility] Pneumococcal 20 Conjugate, PCV20 (Prevnar 20) Unknown Completed [facility] Influenza Virus Vaccine Quad IM, Preserv and ABX Free 6 MO-64 YRS (FLUCELVAX) Unknown Completed [facility] TD, NOS Unknown Completed [facility] Influenza Virus Vaccine Unknown Completed [facility] Pneumococcal 20 Conjugate, PCV20 (Prevnar 20) Unknown Completed [facility] Influenza Virus Vaccine Quad IM, Preserv and ABX Free 6 MO-64 YRS (FLUCELVAX) Unknown Completed [facility] TD, NOS Unknown Completed [facility] Influenza Virus Vaccine Unknown Completed [facility] Pneumococcal 20 Conjugate, PCV20 (Prevnar 20) Unknown Completed [facility] Influenza Virus Vaccine Quad IM, Preserv and ABX Free 6 MO-64 YRS (FLUCELVAX) Unknown Completed [facility] TD, NOS Unknown Completed [facility] Influenza Virus Vaccine Unknown Completed [facility] Pneumococcal 20 Conjugate, PCV20 (Prevnar 20) Unknown Completed [facility] Influenza Virus Vaccine Quad IM, Preserv and ABX Free 6 MO-64 YRS (FLUCELVAX) Unknown Completed [facility] Vital Signs Vital Name Observation Time Observation Value Comments S ource Systolic blood pressure 2022-12-05 00:44:32 149 mm[Hg] [facility] Diastolic blood pressure 2022-12-05 00:44:32 79 mm[Hg] [facility] Heart rate 2022-12-05 00:44:32 66 /min [facility] Body temperature 2022-12-05 00:44:32 36.39 [facility] Respiratory rate 2022-12-05 00:44:32 20 /min [facility] Oxygen saturation in Arterial blood by Pulse oximetry 2022-12-05 00:44:32 64 /min [facility] Body height 2022-12-04 22:27:00 172.7 cm [facility] Body weight 2022-12-04 22:27:00 81.647 kg [facility] BMI 2022-12-04 22:27:00 27.37 kg/m2 [facility] Systolic blood pressure 2022-09-27 13:38:00 111 mm[Hg] [facility] Diastolic blood pressure 2022-09-27 13:38:00 69 mm[Hg] [facility] Heart rate 2022-09-27 13:38:00 73 /min [facility] Body temperature 2022-09-27 13:38:00 36.94 [facility] Respiratory rate 2022-09-27 13:38:00 18 /min [facility] Body height 2022-09-27 13:38:00 172.7 cm [facility] Body weight 2022-09-27 13:38:00 82.6 kg [facility] BMI 2022-09-27 13:38:00 27.69 kg/m2 [facility] Oxygen saturation in Arterial blood by Pulse oximetry 2022-09-27 13:38:00 92 /min [facility] Systolic blood pressure 2022-08-25 15:55:00 115 mm[Hg] [facility] Diastolic blood pressure 2022-08-25 15:55:00 71 mm[Hg] [facility] Heart rate 2022-08-25 15:55:00 83 /min [facility] Body temperature 2022-08-25 15:55:00 37.22 [facility] Body height 2022-08-25 15:55:00 172.7 cm [facility] Body weight 2022-08-25 15:55:00 84.823 kg [facility] BMI 2022-08-25 15:55:00 28.43 kg/m2 [facility] Oxygen saturation in Arterial blood by Pulse oximetry 2022-08-25 15:55:00 92 /min [facility] Systolic blood pressure 2022-04-25 16:02:00 118 mm[Hg] [facility] Diastolic blood pressure 2022-04-25 16:02:00 76 mm[Hg] [facility] Heart rate 2022-04-25 16:02:00 71 /min [facility] Body temperature 2022-04-25 16:02:00 37.11 [facility] Respiratory rate 2022-04-25 16:02:00 18 /min [facility] Body height 2022-04-25 16:02:00 172.7 cm [facility] Body weight 2022-04-25 16:02:00 84.823 kg [facility] BMI 2022-04-25 16:02:00 28.43 kg/m2 [facility] Oxygen saturation in Arterial blood by Pulse oximetry 2022-04-25 16:02:00 96 /min [facility] Systolic blood pressure 2022-03-30 15:21:00 126 mm[Hg] [facility] Diastolic blood pressure 2022-03-30 15:21:00 76 mm[Hg] [facility] Heart rate 2022-03-30 15:21:00 81 /min [facility] Respiratory rate 2022-03-30 15:21:00 19 /min [facility] Body height 2022-03-30 15:21:00 172.7 cm [facility] Body weight 2022-03-30 15:21:00 86.955 kg [facility] BMI 2022-03-30 15:21:00 29.15 kg/m2 [facility] Oxygen saturation in Arterial blood by Pulse oximetry 2022-03-30 15:21:00 93 /min [facility] Systolic blood pressure 2022-03-07 21:44:00 144 mm[Hg] [facility] Diastolic blood pressure 2022-03-07 21:44:00 82 mm[Hg] [facility] Heart rate 2022-03-07 21:44:00 76 /min [facility] Body temperature 2022-03-07 21:44:00 36.56 [facility] Respiratory rate 2022-03-07 21:44:00 18 /min [facility] Body height 2022-03-07 21:44:00 172.7 cm [facility] Body weight 2022-03-07 21:44:00 88.043 kg [facility] BMI 2022-03-07 21:44:00 29.51 kg/m2 [facility] Oxygen saturation in Arterial blood by Pulse oximetry 2022-03-07 21:44:00 92 /min [facility] Systolic blood pressure 2022-02-02 16:00:00 116 mm[Hg] [facility] Diastolic blood pressure 2022-02-02 16:00:00 73 mm[Hg] [facility] Heart rate 2022-02-02 16:00:00 78 /min [facility] Respiratory rate 2022-02-02 16:00:00 19 /min [facility] Body height 2022-02-02 16:00:00 172.7 cm [facility] Body weight 2022-02-02 16:00:00 89.223 kg [facility] BMI 2022-02-02 16:00:00 29.91 kg/m2 [facility] Oxygen saturation in Arterial blood by Pulse oximetry 2022-02-02 16:00:00 95 /min RA [facility] Systolic blood pressure 2021-12-21 20:36:00 139 mm[Hg] [facility] Diastolic blood pressure 2021-12-21 20:36:00 78 mm[Hg] [facility] Heart rate 2021-12-21 20:36:00 91 /min [facility] Body temperature 2021-12-21 20:36:00 36.78 [facility] Body height 2021-12-21 20:36:00 172.7 cm [facility] Body weight 2021-12-21 20:36:00 85.911 kg [facility] BMI 2021-12-21 20:36:00 28.80 kg/m2 [facility] Systolic blood pressure 2021-12-17 01:00:00 151 mm[Hg] [facility] Diastolic blood pressure 2021-12-17 01:00:00 80 mm[Hg] [facility] Heart rate 2021-12-17 01:00:00 82 /min [facility] Respiratory rate 2021-12-17 01:00:00 17 /min [facility] Oxygen saturation in Arterial blood by Pulse oximetry 2021-12-17 01:00:00 92 /min [facility] Body temperature 2021-12-16 23:29:00 36.61 [facility] Body height 2021-12-16 23:29:00 172.7 cm [facility] Body weight 2021-12-16 23:29:00 83.915 kg [facility] BMI 2021-12-16 23:29:00 28.13 kg/m2 [facility] Systolic blood pressure 2021-12-05 20:18:00 127 mm[Hg] [facility] Diastolic blood pressure 2021-12-05 20:18:00 77 mm[Hg] [facility] Heart rate 2021-12-05 20:18:00 78 /min [facility] Body temperature 2021-12-05 20:18:00 37 [facility] Respiratory rate 2021-12-05 20:18:00 18 /min [facility] Body height 2021-12-05 20:18:00 172.7 cm [facility] Body weight 2021-12-05 20:18:00 83.915 kg [facility] BMI 2021-12-05 20:18:00 28.13 kg/m2 [facility] Oxygen saturation in Arterial blood by Pulse oximetry 2021-12-05 20:18:00 94 /min [facility] Systolic blood pressure 2021-09-26 16:38:00 128 mm[Hg] [facility] Diastolic blood pressure 2021-09-26 16:38:00 75 mm[Hg] [facility] Heart rate 2021-09-26 16:38:00 84 /min [facility] Body temperature 2021-09-26 16:38:00 37.11 [facility] Respiratory rate 2021-09-26 16:38:00 18 /min [facility] Oxygen saturation in Arterial blood by Pulse oximetry 2021-09-26 16:38:00 91 /min [facility] Body weight 2021-09-26 08:01:00 83.961 kg [facility] BMI 2021-09-26 08:01:00 28.14 kg/m2 [facility] Body height 2021-09-23 05:06:00 172.7 cm [facility] Systolic blood pressure 2020-02-22 21:29:00 142 mm[Hg] [facility] Diastolic blood pressure 2020-02-22 21:29:00 80 mm[Hg] [facility] Heart rate 2020-02-22 21:29:00 92 /min [facility] Body temperature 2020-02-22 21:29:00 37.11 [facility] Respiratory rate 2020-02-22 21:29:00 20 /min [facility] Body height 2020-02-22 21:29:00 172.7 cm [facility] Body weight 2020-02-22 21:29:00 81.647 kg [facility] BMI 2020-02-22 21:29:00 27.37 kg/m2 [facility] Oxygen saturation in Arterial blood by Pulse oximetry 2020-02-22 21:29:00 98 /min [facility] Systolic blood pressure 2019-12-19 12:30:00 142 mm[Hg] [facility] Diastolic blood pressure 2019-12-19 12:30:00 74 mm[Hg] [facility] Heart rate 2019-12-19 12:30:00 75 /min [facility] Body temperature 2019-12-19 12:30:00 37.28 [facility] Respiratory rate 2019-12-19 12:30:00 18 /min [facility] Oxygen saturation in Arterial blood by Pulse oximetry 2019-12-19 12:30:00 96 /min [facility] Body height 2019-12-17 20:32:00 172.7 cm [facility] Body weight 2019-12-17 20:32:00 81.647 kg [facility] BMI 2019-12-17 20:32:00 27.37 kg/m2 [facility] Systolic blood pressure 2019-12-17 14:00:00 120 mm[Hg] [facility] Diastolic blood pressure 2019-12-17 14:00:00 83 mm[Hg] [facility] Heart rate 2019-12-17 14:00:00 100 /min [facility] Body temperature 2019-12-17 14:00:00 36.06 [facility] Respiratory rate 2019-12-17 14:00:00 16 /min [facility] Body weight 2019-12-17 14:00:00 81.511 kg [facility] BMI 2019-12-17 14:00:00 27.32 kg/m2 [facility] Oxygen saturation in Arterial blood by Pulse oximetry 2019-12-17 14:00:00 96 /min [facility] Systolic blood pressure 2019-12-15 12:40:00 122 mm[Hg] [facility] Diastolic blood pressure 2019-12-15 12:40:00 53 mm[Hg] [facility] Heart rate 2019-12-15 12:40:00 55 /min notified the nurse RN [facility] Body temperature 2019-12-15 12:40:00 36.94 [facility] Respiratory rate 2019-12-15 12:40:00 18 /min [facility] Oxygen saturation in Arterial blood by Pulse oximetry 2019-12-15 08:49:00 98 /min [facility] Body weight 2019-12-11 12:15:00 84 kg [facility] BMI 2019-12-11 12:15:00 28.16 kg/m2 [facility] Body height 2019-12-10 22:56:00 172.7 cm [facility] Systolic blood pressure 2019-12-10 22:28:00 134 mm[Hg] [facility] Diastolic blood pressure 2019-12-10 22:28:00 87 mm[Hg] [facility] Heart rate 2019-12-10 22:28:00 123 /min [facility] Body temperature 2019-12-10 22:28:00 37 [facility] Respiratory rate 2019-12-10 22:28:00 20 /min [facility] Body height 2019-12-10 22:28:00 172.7 cm [facility] Body weight 2019-12-10 22:28:00 83.915 kg [facility] BMI 2019-12-10 22:28:00 28.13 kg/m2 [facility] Oxygen saturation in Arterial blood by Pulse oximetry 2019-12-10 22:28:00 94 /min [facility] Systolic blood pressure 2019-12-10 22:11:00 134 mm[Hg] [facility] Diastolic blood pressure 2019-12-10 22:11:00 84 mm[Hg] [facility] Heart rate 2019-12-10 22:11:00 123 /min [facility] Body temperature 2019-12-10 22:11:00 37 [facility] Respiratory rate 2019-12-10 22:11:00 20 /min [facility] Body height 2019-12-10 22:11:00 172.7 cm [facility] Body weight 2019-12-10 22:11:00 83.915 kg [facility] BMI 2019-12-10 22:11:00 28.13 kg/m2 [facility] Oxygen saturation in Arterial blood by Pulse oximetry 2019-12-10 22:11:00 94 /min [facility] Diastolic blood pressure 2019-12-07 00:32:00 85 mm[Hg] [facility] Heart rate 2019-12-07 00:32:00 120 /min [facility] Body temperature 2019-12-07 00:32:00 36.67 [facility] Respiratory rate 2019-12-07 00:32:00 22 /min [facility] Body height 2019-12-07 00:32:00 172.7 cm [facility] Body weight 2019-12-07 00:32:00 83.462 kg [facility] BMI 2019-12-07 00:32:00 27.98 kg/m2 [facility] Oxygen saturation in Arterial blood by Pulse oximetry 2019-12-07 00:32:00 94 /min [facility] Systolic blood pressure 2019-12-07 00:32:00 124 mm[Hg] [facility] Systolic blood pressure 2019-07-07 13:17:00 136 mm[Hg] [facility] Diastolic blood pressure 2019-07-07 13:17:00 87 mm[Hg] [facility] Heart rate 2019-07-07 13:16:00 123 /min [facility] Body temperature 2019-07-07 13:16:00 38.06 [facility] Respiratory rate 2019-07-07 13:16:00 22 /min [facility] Body height 2019-07-07 13:16:00 172.7 cm [facility] Body weight 2019-07-07 13:16:00 81.647 kg [facility] BMI 2019-07-07 13:16:00 27.37 kg/m2 [facility] Oxygen saturation in Arterial blood by Pulse oximetry 2019-07-07 13:16:00 97 /min [facility] Procedures Procedure Date / Time Performed Performing Clinician Source NOTICE OF PRIVACY PRACTICES 2022-12-05 00:06:11 Doctor Unassigned, [facility] ASSIGNMENT OF BENEFITS 2022-12-05 00:05:53 Docto r Unassigned, [facility] XR RIBS 3 VW LEFT 2022-12-04 23:09:00 Tiffany Mejia [facility] CONSENT/REFUSAL FOR DIAGNOSIS AND TREATMENT 2022-12-04 22:14:27 Doctor Unassigned, [facility] US ABDOMEN COMPLETE 2022-05-04 19:05:00 Norma Oakes ukwu [facility] PULMONARY FUNCTION TEST (RESULTS) 2022-03-09 14:01:31 Reyes [facility] THORAX WO CONTRAST 2022-02-06 16:14:56 Reyes Cruz [facility] XR CERVICAL SPINE 2 VW 2021-12-21 20:44:37 Mikel Hui [facility] NOTICE OF PRIVACY PRACTICES 2021-12-16 23:24:32 Doctor Unassigned, [facility] CONSENT/REFUSAL FOR DIAGNOSIS AND TREATMENT 2021-12-16 23:23:56 Doctor Unassigned, [facility] FLU VACC ([id number]), 6 MO-64 YRS, .5ML, IM, QUAD (FLUCELVAX) 2021-12-05 21:36:14 Belen Oakes [facility] PNEUMOCOCCAL 20 CONJUGATE (PREVNAR 20) VACCINE 2021-12-05 21:36:14 Belen Oakes [facility] ASSIGNMENT OF BENEFITS 2021-12-05 19:36:46 Docto r Unassigned, [facility] AUTHORIZATION FOR RELEASE OF PHI 2021-10-25 05:01:00 Doctor Unassigned, [facility] BASIC METABOLIC PANEL (NA, K, CL, CO2, GLUCOSE, BUN, CREATININE, CA) 2021-09-25 09:19:00 Barry Meade [facility] CBC WITH DIFF 2021-09-25 09:19:00 Barry Meade [facility] SPUTUM CULTURE 2021-09-25 00:42:00 Raul Salas [facility] VANCOMYCIN TROUGH 2021-09-24 15:23:00 Laurence Peña [facility] BASIC METABOLIC PANEL (NA, K, CL, CO2, GLUCOSE, BUN, CREATININE, CA) 2021-09-24 09:35:00 Jairo Lepe [facility] CBC WITH DIFF 2021-09-24 09:35:00 Jairo Lepe [facility] QUANTIFERON-TB ASSAY 2021-09-23 16:29:00 Marty Salas [facility] MRSA / MSSA SCREEN BY PCRMELVIN 2021-09-23 15:17:00 Laurence Peña [facility] BASIC METABOLIC PANEL (NA, K, CL, CO2, GLUCOSE, BUN, CREATININE, CA) 2021-09-23 09:14:00 Raul Salas [facility] CBC WITH DIFF 2021-09-23 [facility]:14[facility] 2021-09-23 01:45:14 Quinton Baldwin [facility] LACTIC ACID WHOLE BLOOD 2021-09-23 01:17:00 Do alice Baldwin [facility] BLOOD CULTURE SCREEN 2021-09-23 01:16:00 Chanda Baldwin [facility] TROPONIN I 2021-09-23 01:16:00 [facility] COMP. METABOLIC PANEL (99266) 2021-09-23 01:16:00 Quinton Baldwin [facility] CBC WITH DIFF 2021-09-23 01:16:00 Quinton Baldwin [facility] URINALYSIS 2021-09-23 01:16:00 Quinton [facility] URINE CULTURE 2021-09-23 01:16[facility]00 [facility] 2021-09-23 01:16:00 Quinton Baldwin [facility] XR CHEST 1 VW 2021-09-23 01:08:50 Quinton Baldwin [facility] RAPID INFLUENZA A/B 2021-09-23 00:19:00 Jose Baldwin [facility] COVID-19 (ID NOW RAPID TESTING) 2021-09-23 00:19:00 Quinton Baldwin [facility] LAB ONLY COVID INTERPRETATION 2021-09-23 00:19:00 Quinton Baldwin [facility] CBC WITH DIFF 2019-12-18 10:47:00 Diego Cross [facility] EXTRA TUBE LT. GREEN 2019-12-18 10:47:00 Geraldine Cross [facility] WOUND CULTURE 2019-12-17 17:03:00 Ai Hinton [facility] COVID-19 (ID NOW RAPID TESTING) 2019-12-17 17:03:00 Ai Hinton [facility] BLOOD CULTURE SCREEN 2019-12-17 15:45:00 Sonia Hinton [facility] COMP. METABOLIC PANEL (88098) 2019-12-17 15:41:00 Ai Hinton [facility] CBC WITH DIFF 2019-12-17 15:41:00 Ai Hinton [facility] BLOOD CULTURE SCREEN 2019-12-17 15:32:00 Sonai Hinton [facility] CONSENT/REFUSAL FOR DIAGNOSIS AND TREATMENT 2019-12-17 14:50:45 Doctor Unassigned, [facility] CBC WITH DIFF 2019-12-15 09:37:00 Priscilla Coombs [facility] BASIC METABOLIC PANEL (NA, K, CL, CO2, GLUCOSE, BUN, CREATININE, CA) 2019-12-14 08:20:00 Eric Tovar [facility] VANCOMYCIN TROUGH 2019-12-13 12:33:00 Kwabena Ragsdale [facility] COMP. METABOLIC PANEL (74907) 2019-12-12 10:03:00 Priscilla Coombs [facility] CBC WITH DIFF 2019-12-12 10:03:00 Eric Tovar [facility] ASPIRATE OR ABSCESS CULTURE(AEROBIC/ANAEROBIC ) 2019-12-11 15:26:13 Priscilla Coombs [facility] WOUND DEBRIDEMENT 2019-12-11 14:30:00 Dajuan Coombs [facility] HOSPITAL ADMISSION MISC - MEDICARE PATIENTS RIGHTS IMPORTANT MESSAGE 2019-12-11 05:01:00 Doctor Unassigned, [facility] CT PELVIS W CONTRAST 2019-12-11 00:38:13 Sheba Finch [facility] LACTIC ACID WHOLE BLOOD 2019-12-10 23:37:00 Rudy Finch [facility] COVID-19 (ID NOW RAPID TESTING) 2019-12-10 23:37:00 Sheba Finch [facility] BLOOD CULTURE SCREEN 2019-12-10 23:36:00 Sheba Finch [facility] BASIC METABOLIC PANEL (NA, K, CL, CO2, GLUCOSE, BUN, CREATININE, CA) 2019-12-10 23:36:00 Sheba Finch [facility] CBC WITH DIFF 2019-12-10 23:36:00 [facility] 2019-12-10 22:07:10 Doctor Unassigned, [facility] XR CHEST 2 VW COVID 2019-07-07 [facility]:07[facility] Start Date/Time End Date/Time Encounter Type Admission Type Attending [facility] Care Facility Care Department Encounter ID Source 2020-12-18 01:32:[address] [facility] [id number] [facility] 2020-12-18 00:21:[address] [facility] [id number] [facility] 2023-02-23 00:00:00 2023-02-23 00:00:00 Refill Isrrael South [facility] 1.2.840.114 350.1.13.10 4.2.7.2.686 [id number] [facility] 2023-01-28 00:00:00 2023-01-28 00:00:00 Refill ChampBelen [facility] 1.2.840.114 350.1.13.10 4.2.7.2.686 [id number] [facility] 2023-01-25 00:00:00 2023-01-25 00:00:00 Refill Champ, Ogmignonivonne [facility] 1.2.840.114 350.1.13.10 4.2.7.2.686 [id number] [facility] 2022-12-22 00:00:00 2022-12-22 00:00:00 Outpatient DMG DMG [id number] [facility] 2022-12-04 17:30:00 2022-12-04 19:50:00 Emergency X Tiffany MEJIA [facility] E[facility] [id number] [facility] 2022-12-04 17:30:00 2022-12-04 19:50:00 Emergency Tiffany Mejia [facility] 1.2.840.114 350.1.13.10 4.2.7.2.686 [id number] [facility] 2022-09-27 10:15:00 2022-09-27 10:30:00 Circular Knife Cutter Machine Visit 2, Adc Lab Belen Oakes [facility] 1.2.840.114 350.1.13.10 4.2.7.2.686 [id number] [facility] 2022-09-27 08:30:00 2022-09-27 09:17:14 Outpatient R BELEN OAKES OGECHUKWU [facility] [id number] [facility] 2022-09-27 08:30:00 2022-09-27 09:17:14 Office Visit Belen Oakes [facility] 1.2.840.114 350.1.13.10 4.2.7.2.686 [id number] [facility] 2022-09-26 00:00:00 2022-09-26 00:00:00 Refill Belen Oakes [facility] 1.2.840.114 350.1.13.10 4.2.7.2.686 [id number] [facility] 2022-09-25 00:00:00 2022-09-25 00:00:00 Refill Belen Oakes [facility] 1.2.840.114 350.1.13.10 4.2.7.2.686 [id number] [facility] 2022-09-18 00:00:00 2022-09-18 00:00:00 Refill Belen Oakes [facility] 1.2.840.114 350.1.13.10 4.2.7.2.686 [id number] [facility] 2022-08-28 00:00:00 2022-08-28 00:00:00 Refill Belen Oakes [facility] 1.2.840.114 350.1.13.10 4.2.7.2.686 [id number] [facility] 2022-08-25 11:00:00 2022-08-25 12:04:12 Outpatient R KAMALA OAKESFlexKait OAKES KAMALAFlexKait [facility] [id number] [facility] 2022-08-25 11:00:00 2022-08-25 12:04:12 Office Visit Belen Oakes [facility] 1.2.840.114 350.1.13.10 4.2.7.2.686 [id number] [facility] 2022-08-03 00:00:00 2022-08-03 00:00:00 Refill Belen Oakes [facility] 1.2.840.114 350.1.13.10 4.2.7.2.686 [id number] [facility] 2022-07-28 09:00:00 2022-07-28 09:00:00 Outpatient R REYES CRUZ SHIWAN [facility] [id number] [facility] 2022-07-15 00:00:00 2022-07-15 00:00:00 Refill Belen Oakes [facility] 1.2.840.114 350.1.13.10 4.2.7.2.686 [id number] [facility] 2022-07-04 14:30:00 2022-07-04 14:30:00 Outpatient R BELEN OAKES OGECHUKWU [facility] [id number] [facility] 2022-05-22 00:00:00 2022-05-22 00:00:00 Telephone [facility] 1.2.840.114 350.1.13.10 4.2.7.2.686 [id number] [facility] 2022-05-19 00:00:00 2022-05-19 00:00:00 Patient Secure Msg Belen Oakes [facility] 1.2.840.114 350.1.13.10 4.2.7.2.686 [id number] [facility] 2022-05-04 13:27:13 2022-05-04 23:59:00 Outpatient R BELEN OAKES OGECHUKWU [facility] [id number] [facility] 2022-05-04 13:27:13 2022-05-04 23:59:00 Hospital Encounter Belen Oakes [facility] 1.2.840.114 350.1.13.10 4.2.7.2.686 [id number] [facility] 2022-04-25 10:00:00 2022-04-25 10:42:40 Outpatient R JAYLIN LISA [facility] [id number] [facility] 2022-04-25 10:00:00 2022-04-25 10:42:40 Office Visit Jaylin Lisa [facility] 1.2.840.114 350.1.13.10 4.2.7.2.686 [id number] [facility] 2022-04-03 00:00:00 2022-04-03 00:00:00 Telephone Belen Oakes [facility] 1.2.840.114 350.1.13.10 4.2.7.2.686 [id number] [facility] 2022-03-30 09:00:00 2022-03-30 09:45:03 Outpatient R REYES CRUZ SHIILEugenio [facility] [id number] [facility] 2022-03-30 09:00:00 2022-03-30 09:45:03 Office Visit Reyes Cruz [facility] 1.2.840.114 350.1.13.10 4.2.7.2.686 [id number] [facility] 2022-03-30 00:00:00 2022-03-30 00:00:00 Telephone Norma Oakessherlykait [facility] 1.2.840.114 350.1.13.10 4.2.7.2.686 [id number] [facility] 2022-03-30 00:00:00 2022-03-30 00:00:00 Telephone Lizeth Murray [facility] 1.2.840.114 350.1.13.10 4.2.7.2.686 [id number] [facility] 2022-03-29 00:00:00 2022-03-29 00:00:00 Outpatient R NORMA OAKESSHERLYKait CHAMPBELEN [facility] [id number] [facility] 2022-03-24 00:00:00 2022-03-24 00:00:00 Patient Secure Msg Vincent Oakespriscilla [facility] 1.2.840.114 350.1.13.10 4.2.7.2.686 [id number] [facility] 2022-03-21 00:00:00 2022-03-21 00:00:00 Telephone Belen Oakes [facility] 1.20.114 350.1.13.10 4.2.7.2.686 [id number] [facility] 2022-03-20 00:00:00 2022-03-20 00:00:00 Patient Secure Msg Doctor Unassigned, [facility] 1.20.114 350.1.13.10 4.2.7.2.686 [id number] [facility] 2022-03-09 08:00:00 2022-03-09 08:15:00 Circular Knife Cutter Machine Visit Therapist, [facility] Respiratory Ronnell Rangel [facility] 1..114 350.1.13.10 4.2.7.2.686 [id number] [facility] 2022-03-09 08:00:00 2022-03-09 08:00:00 Outpatient R RONNELL RANGEL [facility] [id number] [facility] 2022-03-09 00:00:00 2022-03-09 00:00:00 Orders Only Reyes Cruz [facility] 1..114 350.1.13.10 4.2.7.2.686 [id number] [facility] 2022-03-07 15:30:00 2022-03-07 16:30:48 Office Visit Belen Oakes [facility] 1..114 350.1.13.10 4.2.7.2.686 [id number] [facility] 2022-03-07 15:30:00 2022-03-07 16:30:48 Outpatient R BELEN OAKES OGECHUKWU [facility] [id number] [facility] 2022-03-01 00:00:00 2022-03-01 00:00:00 Refill Belen Oakes [facility] 1.2.840.114 350.1.13.10 4.2.7.2.686 [id number] [facility] 2022-03-01 00:00:00 2022-03-01 00:00:00 Refill Shellie cross [facility] 1.2.840.114 350.1.13.10 4.2.7.2.686 [id number] [facility] 2022-02-25 00:00:00 2022-02-25 00:00:00 [facility] 1.2.840.114 350.1.13.10 4.2.7.2.686 [id number] [facility] 2022-02-24 00:00:00 2022-02-24 00:00:00 Refill Reyes [facility] 1.2.840.114 350.1.13.10 4.2.7.2.686 [id number] [facility] 2022-02-06 09:20:20 2022-02-06 23:59:00 Out[facility] [id number] [facility] 2022-02-06 09:20:20 2022-02-06 23:59:00 Hospital Encounter Reyes Cruz [facility] 1.2.840.114 350.1.13.10 4.2.7.2.686 [id number] [facility] 2022-02-02 10:00:00 2022-02-02 10:30:00 Office Visit Reyes Cruz [facility] 1.2.840.114 350.1.13.10 4.2.7.2.686 [id number] [facility] 2022-02-02 10:00:00 2022-02-02 10:00:00 Outpatient R [facility] [id number] [facility] 2022-02-02 00:00:00 2022-02-02 00:00:00 Telephone Belen Oakes [facility] 1.2.840.114 350.1.13.10 4.2.7.2.686 [id number] [facility] 2022-02-02 00:00:00 2022-02-02 00:00:00 Telephone Reyes Cruz [facility] 1.2.840.114 350.1.13.10 [id number] [id number] [facility] 2022-01-25 00:00:00 2022-01-25 00:00:00 Refill Belen Oakes [facility] [id number] 350.1.13.10 [id number] [id number] [facility] 2022-01-23 00:00:00 2022-01-23 00:00:00 Refill Mikel Rocha [facility] [id number] 350.1.13.10 [id number] [id number] [facility] 2022-01-20 00:00:00 2022-01-20 00:00:00 Refill Mikel Rocha [facility] AT [facility] 1.2.840.114 350.1.13.10 4.2.7.2.686 [id number] [facility] 2022-01-13 00:00:00 2022-01-13 00:00:00 Refill Champ Vincentmignonsami [facility] 1.2.840.114 350.1.13.10 4.2.7.2.686 [id number] [facility] 2022-01-11 00:00:00 2022-01-11 00:00:00 Refill Champ teresakait [facility] 1.2.840.114 350.1.13.10 4.2.7.2.686 [id number] [facility] 2021-12-22 00:00:00 2021-12-22 00:00:00 Refill Shellie cross [facility] 1..840.114 350.1.13.10 4.2.7.2.686 [id number] [facility] 2021-12-21 15:38:57 2021-12-21 23:59:00 Hospital Encounter MiloVicente cross [facility] AT [facility] 1.2.840.114 350.1.13.10 4.2.7.2.686 [id number] [facility] 2021-12-21 15:20:00 2021-12-21 15:57:51 Outpatient R MIKEL ROCHA [facility] [id number] [facility] 2021-12-21 15:20:00 2021-12-21 15:57:51 Office Visit MiloVicente cross [facility] 1..114 350.1.13.10 4.2.7.2.686 [id number] [facility] 2021-12-16 18:30:00 2021-12-16 20:56:00 Emergency X BARRY [facility]ADOR [facility] ERT [id number] [facility] 2021-12-16 18:30:00 2021-12-16 20:56:00 Emergency Barry Salvador S [facility] 1.0.114 350.1.13.10 4.2.7.2.686 [id number] [facility] 2021-12-16 00:00:00 2021-12-16 00:00:00 Orders Only Doctor Unassigned, Cherry [facility] 1..114 350.1.13.10 4.2.7.2.686 [id number] [facility] 2021-12-05 15:00:00 2021-12-05 16:34:13 [facility] [id number] [facility] 2021-12-05 15:00:00 2021-12-05 16:34:13 Office Visit [facility] priscilla [facility] PROFESSIO [facility] 1.114 350.1.13.10 4.2.7.2.686 [id number] [facility] 2021-12-05 00:00:00 2021-12-05 00:00:00 Orders Only Doctor Unassigned, Cherry [facility] 1..114 350.1.13.10 4.2.7.2.686 [id number] [facility] 2021-10-25 00:00:00 2021-10-25 00:00:00 Orders Only Doctor Unassigned, Cherry [facility] 1.0.114 350.1.13.10 4.2.7.2.686 [id number] [facility] 2021-09-27 00:00:00 2021-09-27 00:00:00 Transition of Care Essie Major 1.0.114 350.1.13.10 4.2.7.2.686 [id number] [facility] 2021-09-22 19:13:00 2021-09-26 15:51:00 Inpatient X PRISCILLA [facility] KENIA [id number] [facility] 2021-09-22 19:13:00 2021-09-26 15:51:00 Hospital Encounter Quinton Baldwin, Priscilla Bai [facility] 1.114 350.1.13.10 4.2.7.2.686 [id number] [facility] 2020-03-07 18:45:00 2020-03-07 18:45:00 Outpatient R UNKNOWN, ATTENDING [facility] [id number] [facility] 2020-02-22 15:23:01 2020-02-22 15:45:41 Urgent Care Maximiliano Kern Unknown, Attending [facility] 1.114 350.1.13.10 4.2.7.2.686 [id number] [facility] 2020-02-22 15:30:00 2020-02-22 15:30:00 Outpatient R UNKNOWN, ATTENDING [facility] [id number] [facility] 2019-12-23 00:00:00 2019-12-23 00:00:00 Dejah Barrera [facility] Office [address] 1.114 350.1.13.10 4.2.7.2.686 [id number] [facility] 2019-12-22 00:00:00 2019-12-22 00:00:00 Transition of Care Essie Major 1.2.840.114 350.1.13.10 4.2.7.2.686 [id number] [facility] 2019-12-17 10:00:00 2019-12-19 09:48:00 Emergency Ai Hinton Folusho F Armstrong, Robin [facility] ([facility]) 1.2.840.114 350.1.13.10 4.2.7.2.686 [id number] [facility] 2019-12-17 08:50:25 2019-12-17 09:20:25 Office Visit Sonia [facility] 1.2.840.114 350.1.13.10 4.2.7.2.686 [id number] [facility] 2019-12-17 09:00:00 2019-12-17 09:00:[address] [facility] [id number] [facility] 2019-12-[facility] 00:00:00 2019-12-17 00:00:00 Orders Only Doctor Unassigned, Cherry [facility] 1.2.840.114 350.1.13.10 4.2.7.2.686 [id number] [facility] 2019-12-17 00:00:00 2019-12-17 00:00:00 Transition of Care Essie Major 1.2.840.114 350.1.13.10 4.2.7.2.686 [id number] [facility] 2019-12-16 09:30:00 2019-12-16 09:30:[address] [facility] [id number] [facility] 2019-12-10 17:57:00 2019-12-15 12:41:00 Hospital Encounter Sheba Finch, Radha [facility] ([facility]) 1..114 350.1.13.10 4.2.7.2.686 [id number] [facility] 2019-12-10 17:23:36 2019-12-10 17:38:36 Nurse Visit Nurse, Tomy Urgent Unknown, Attending [facility] 1.114 350.1.13.10 4.2.7.2.686 [id number] [facility] 2019-12-10 17:30:00 2019-12-10 17:30:00 Outpatient R UNKNOWN, ATTENDING [facility] [id number] [facility] 2019-12-10 17:15:00 2019-12-10 17:30:00 Urgent Care Care, Tomy Urgent Unknown, Attending [facility] 1.114 350.1.13.10 4.2.7.2.686 [id number] [facility] 2019-12-10 17:15:00 2019-12-10 17:15:00 Outpatient R UNKNOWN, ATTENDING [facility] [id number] [facility] 2019-12-10 00:00:00 2019-12-10 00:00:00 Orders Only Doctor Unassigned, Cherry [facility] 1.114 350.1.13.10 4.2.7.2.686 [id number] [facility] 2019-12-06 19:29:53 2019-12-06 19:44:53 Urgent Care Eldon Stevens Unknown, Attending [facility] 1.114 350.1.13.10 4.2.7.2.686 [id number] [facility] 2019-12-06 19:30:00 2019-12-06 19:30:00 Outpatient R UNKNOWN, ATTENDING [facility] [id number] [facility] 2019-07-11 00:00:00 2019-07-11 00:00:00 Letter (Out) Aislinn Bowie [facility] 1.2840.114 350.1.13.10 4.2.7.2.686 [id number] [facility] 2019-07-11 00:00:00 2019-07-11 00:00[facility]00 [facility] 1.2840.114 350.1.13.10 4.2.7.2.686 [id number] [facility] 2019-07-10 00:00:00 2019-07-10 00:00:[facility]40.114 350.1.13.10 4.2.7.2.686 [id number] [facility] 2019-07-07 08:57:46 2019-07-07 23:59:00 Outpatient R NICOLA [facility] [id number] [facility] 2019-07-07 08:55:00 2019-07-07 23:59:00 Hospital Encounter Nicola [facility] 1.2.840.114 350.1.13.10 4.2.7.2.686 [id number] [facility] 2019-07-07 07:47:43 2019-07-07 10:43:03 Urgent Care Pob1, Acute Care Clinic Valerie Rivera [facility] Office [facility] 1.2840.114 350.1.13.10 4.2.7.2.686 [id number] [facility] 2019-07-07 00:00:00 2019-07-07 00:00:00 Nurse Triage Sushma Chinchilla [facility] 1.2840.114 350.1.13.10 4.2.7.2.686 [id number] [facility] Results Test Description Test Time Test Comments Results Result Co mments [facility] Please draw trough 30 mins BEFORE the 4th dose scheduled on 09/24/21 @ 1030.2021-09-24 17:55:36* Test Item Value Reference Range Interpretation Comme nts VANCO TROUGH (test code = 9867577413) 9.4 ug/mL 10-20 L DORIAN (test code = DORIAN) Toxic Range: ?>20 ug/mL 15-20 ug/mL is recommended for severe infection or when Vancomycin AZAM is greater than or equal to 2. Lab Interpretation (test code = 13088-9) [facility] (NA, K, CL, CO2, GLUCOSE, BUN, CREATININE, CA)2021-09-23 13:55:13* Test Item Value Reference Range Interpretation Comme nts NA (test code = 4000443997) 139 mmol/L 135-145 K (test code = 3238983889) 4.0 mmol/L 3.5-5 Slight hemolysis CL (test code = 9780375184) 108 mmol/L 98-108 CO2 TOTAL (test code = 0219949604) 24 mmol/L 23-31 AGAP (test code = 6042984597) 2-16 BUN (test code = 3716384187) 13 mg/dL 7-23 Slight hemolysis GLUCOSE (test code = 8578981318) 104 mg/dL 70-110 CREATININE (test code = 5771575524) 0.73 mg/dL 0.6-1.25 CALCIUM (test code = 1385403900) 7.7 mg/dL 8.6-10.6 L eGFR (test code = 4789790648) mL/min/1.73m2 DORIAN (test code = DORIAN) Association of Glomerular Filtration Rate (GFR) and Staging of Kidney Disease* + -----+ --------+ +| GFR (mL/min/1.73 m2) ?| With Kidney Damage ?| ?Without Kidney Damage+ +------- +---- --+| ?>90 ?| ?Stage one ?| ? Normal ?+ ------+ ---------+--------- +| ?60-89 ?| ?Stage two ?| ? Decreased GFR ? + -----+ --------+ +| ?30-59 ?| ?Stage three ?| ? Stage three ? + -----+ --------+ +| ?15-29 ?| ?Stage four ? | ? Stage four ?+ ------+ ---------+--------- +| ?<15 (or dialysis) ? ?| ?Stage five ? | ? Stage five ?+ ------+ ---------+--------- + *Each stage assumes the associated GFR level has been in effect for at least three months. ?Stages 1 to 5, with or without kidney disease, indicate chronic kidney disease. Notes: Determination of stages one and two (with eGFR >59mL/min/1.73 m2) requires estimation of kidney damage for at least three months as defined by structural or functional abnormalities of the kidney, manifested by either:Pathological abnormalities or Markers of kidney damage (including abnormalities in the composition of the blood or urine or abnormalities in imaging tests). Lab Interpretation (test code = 62635-3) Abnormal [facility] with [id number] 10:02:55* Test Item Value Reference Range Interpretation Comme nts WBC (test code = 6690-2) See_Comment H [Automated message] The system which generated this result transmitted reference range: 4.20 - 10.70 10*3/?L. The reference range was not used to interpret this result as normal/abnormal. RBC (test code = 789-8) See_Comment L [Automated message] The system which generated this result transmitted reference range: 4.26 - 5.52 10*6/?L. The reference range was not used to interpret this result as normal/abnormal. HGB (test code = 718-7) 12.8 g/dL 12.2-16.4 HCT (test code = 4544-3) 38.4 % 38.4-49.3 MCV (test code = 787-2) 96.5 fL 81.7-95.6 H MCH (test code = 785-6) 32.2 pg 26.1-32.7 MCHC (test code = 786-4) 33.3 g/dL 31.2-35 RDW-SD (test code = 06176-3) 51.6 fL 38.5-51.6 RDW-CV (test code = 788-0) 14.3 % 12.1-15.4 PLT (test code = 777-3) See_Comment [Automated message] The system which generated this result transmitted reference range: 150 - 328 10*3/?L. The reference range was not used to interpret this result as normal/abnormal. MPV (test code = 40903-7) 10.0 fL 9.8-13 NRBC/100 WBC (test code = 9448632050) See_Comment [Automated message] The system which generated this result transmitted reference range: 0.0 - 10.0 /100 WBCs. The reference range was not used to interpret this result as normal/abnormal. NRBC x10^3 (test code = 5192765817) See_Comment [Automated message] The system which generated this result transmitted reference range: 10*3/?L. The reference range was not used to interpret this result as normal/abnormal. GRAN MAT (NEUT) % (test code = 770-8) 80.9 % IMM GRAN % (test code = 0460611532) 0.60 % LYMPH % (test code = 736-9) 8.6 % MONO % (test code = 5905-5) 9.5 % EOS % (test code = 713-8) 0.1 % BASO % (test code = 706-2) 0.3 % GRAN MAT x10^3(ANC) (test code = 9195175710) 14.61 10*3/uL 1.99-6.95 H IMM GRAN x10^3 (test code = 7848474528) 0.10 10*3/uL 0-0.06 H LYMPH x10^3 (test code = 731-0) 1.55 10*3/uL 1.09-3.23 MONO x10^3 (test code = 742-7) 1.71 10*3/uL 0.36-1.02 H EOS x10^3 (test code = 711-2) 0.06-0.53 L BASO x10^3 (test code = 704-7) 0.05 10*3/uL 0.01-0.09 Lab Interpretation (test code = 21407-0) Abnormal [facility] with [id number] 12:02:00* Test Item Value Reference Range Interpretation Comme nts WBC (test code = 6690-2) See_Comment H [Automated messa ge] The system which generated this result transmitted reference range: 4.20 - 10.70 10*3/?L. The reference range was not used to interpret this result as normal/abnormal. RBC (test code = 789-8) See_Comment L [Automated messa ge] The system which generated this result transmitted reference range: 4.26 - 5.52 10*6/?L. The reference range was not used to interpret this result as normal/abnormal. HGB (test code = 718-7) 11.0 g/dL 12.2-16.4 L HCT (test code = 4544-3) 33.3 % 38.4-49.3 L MCV (test code = 787-2) 96.0 fL 81.7-95.6 H MCH (test code = 785-6) 31.7 pg 26.1-32.7 MCHC (test code = 786-4) 33.0 g/dL 31.2-35 RDW-SD (test code = 68582-3) 55.5 fL 38.5-51.6 H RDW-CV (test code = 788-0) 15.8 % 12.1-15.4 H PLT (test code = 777-3) See_Comment H [Automated messa ge] The system which generated this result transmitted reference range: 150 - 328 10*3/?L. The reference range was not used to interpret this result as normal/abnormal. MPV (test code = 54943-8) 8.5 fL 9.8-13 L NRBC/100 WBC (test code = 8227606611) See_Comment [Automated Likva ssage] The system which generated this result transmitted reference range: 0.0 - 10.0 /100 WBCs. The reference range was not used to interpret this result as normal/abnormal. NRBC x10^3 (test code = 5793017232) <0.01 See_Comment [Automated messa ge] The system which generated this result transmitted reference range: 10*3/?L. The reference range was not used to interpret this result as normal/abnormal. GRAN MAT (NEUT) % (test code = 770-8) 70.1 % IMM GRAN % (test code = 7236433640) 2.20 % LYMPH % (test code = 736-9) 19.4 % MONO % (test code = 5905-5) 6.4 % EOS % (test code = 713-8) 1.4 % BASO % (test code = 706-2) 0.5 % GRAN MAT x10^3(ANC) (test code = 7160630787) 7.62 10*3/uL 1.99-6.95 H IMM GRAN x10^3 (test code = 7043837204) 0.24 10*3/uL 0-0.06 H LYMPH x10^3 (test code = 731-0) 2.11 10*3/uL 1.09-3.23 MONO x10^3 (test code = 742-7) 0.69 10*3/uL 0.36-1.02 EOS x10^3 (test code = 711-2) 0.15 10*3/uL 0.06-0.53 BASO x10^3 (test code = 704-7) 0.05 10*3/uL 0.01-0.09 Lab Interpretation (test code = 46964-4) [facility]ID TEST[facility]2019-12-17 17:53:00* Test Item Value Reference Range Interpretation Comme nts SARS-CoV-2 Rapid ID NOW (test code = 79912-1) Not Detected Not Detected DORIAN (test code = DORIAN) ID NOW COVID-19 As say is an isothermal nucleic acid amplification test intended for the qualitative detection of nucleic acid from SARS-CoV-2 viral RNA in 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 It is used under Emergency Use Authorization (EUA) by FDA. The limit of detection (LOD) of the assay is 125 Genome Equivalents/mL. A positive result is indicative of the presence of SARS-CoV-2 RNA. ?Clinical correlation with patient history and other diagnostic information is necessary to determine patient infection status. A negative (Not Detected) result does not preclude SARS-CoV-2 infection. In patients with clinical symptoms and other tests that are consistent with SARS-CoV-2 infection, negative results should be treated as presumptive negative and a new specimen should be tested with alternative PCR molecular test. Invalid: Please collect a new specimen for repeat patient testing if clinically indicated. Lab Interpretation (test code = 36851-0) Normal [facility] WITH [id number] 16:37:00* Test Item Value Reference Range Interpretation Comme nts WBC (test code = 6690-2) See_Comment H [Automated message] The system which generated this result transmitted reference range: 4.20 - 10.70 10*3/?L. The reference range was not used to interpret this result as normal/abnormal. RBC (test code = 789-8) See_Comment L [Automated message] The system which generated this result transmitted reference range: 4.26 - 5.52 10*6/?L. The reference range was not used to interpret this result as normal/abnormal. HGB (test code = 718-7) 12.0 g/dL 12.2-16.4 L HCT (test code = 4544-3) 37.6 % 38.4-49.3 L MCV (test code = 787-2) 97.2 fL 81.7-95.6 H MCH (test code = 785-6) 31.0 pg 26.1-32.7 MCHC (test code = 786-4) 31.9 g/dL 31.2-35 RDW-SD (test code = 22638-5) 55.8 fL 38.5-51.6 H RDW-CV (test code = 788-0) 15.7 % 12.1-15.4 H PLT (test code = 777-3) See_Comment H [Automated message] The system which generated this result transmitted reference range: 150 - 328 10*3/?L. The reference range was not used to interpret this result as normal/abnormal. MPV (test code = 84194-9) 8.6 fL 9.8-13 L NRBC/100 WBC (test code = 4716557733) See_Comment [Automated message] The system which generated this result transmitted reference range: 0.0 - 10.0 /100 WBCs. The reference range was not used to interpret this result as normal/abnormal. NRBC x10^3 (test code = 3585707445) <0.01 See_Comment [Automated message] The system which generated this result transmitted reference range: 10*3/?L. The reference range was not used to interpret this result as normal/abnormal. GRAN MAT (NEUT) % (test code = 770-8) 72.4 % IMM GRAN % (test code = 5188757476) 3.40 % LYMPH % (test code = 736-9) 17.1 % MONO % (test code = 5905-5) 5.4 % EOS % (test code = 713-8) 1.1 % BASO % (test code = 706-2) 0.6 % GRAN MAT x10^3(ANC) (test code = 6815356364) 11.26 10*3/uL 1.99-6.95 H IMM GRAN x10^3 (test code = 9492602311) 0.53 10*3/uL 0-0.06 H LYMPH x10^3 (test code = 731-0) 2.67 10*3/uL 1.09-3.23 MONO x10^3 (test code = 742-7) 0.84 10*3/uL 0.36-1.02 EOS x10^3 (test code = 711-2) 0.17 10*3/uL 0.06-0.53 BASO x10^3 (test code = 704-7) 0.10 10*3/uL 0.01-0.09 H Lab Interpretation (test code = 66296-5) Abnormal [facility]. METABOLIC PANEL (26440)2019-12-17 16:07:00* Test Item Value Reference Range Interpretation Comme nts NA (test code = 7891694936) 136 mmol/L 135-145 K (test code = 0414843530) 4.5 mmol/L 3.5-5 CL (test code = 3740882285) 104 mmol/L 98-108 CO2 TOTAL (test code = 2402723203) 29 mmol/L 23-31 AGAP (test code = 2426211578) 2-16 BUN (test code = 5448663416) 12 mg/dL 7-23 GLUCOSE (test code = 5815786279) 104 mg/dL 70-110 CREATININE (test code = 4427878338) 0.76 mg/dL 0.6-1.25 TOTAL BILI (test code = 7441000623) 0.4 mg/dL 0.1-1.1 CALCIUM (test code = 1771481919) 8.4 mg/dL 8.6-10.6 L T PROTEIN (test code = 7604157408) 6.2 g/dL 6.3-8.2 L ALBUMIN (test code = 6496328008) 3.0 g/dL 3.5-5 L ALK PHOS (test code = 4430202308) 102 U/L 34-122 ALTv (test code = 1742-6) 29 U/L 5-50 AST(SGOT) (test code = 3142602638) 22 U/L 13-40 eGFR Calculation (Non-) (test code = 2143947050) mL/min/1.73m2 eGFR Calculation () (test code = 9387862607) mL/min/1.73m2 DORIAN (test code = DORIAN) Association of Glomerular Filtration Rate (GFR) and Staging of Kidney Disease* + --+ --+ ------+| GFR (mL/min/1.73 m2) ?| With Kidney Damage ?| ?Without Kidney Damage+ --------+ --------+ +| ?>90 ?| ?Stage one ?| ? Normal ?+ ---+ ---+ -------+| ?60-89 ?| ?Stage two ?| ? Decreased GFR ? + --+ --+ ------+| ?30-59 ?| ?Stage three ?| ? Stage three ? + --+ --+ ------+| ?15-29 ?| ?Stage four ? | ? Stage four ?+ ---+ ---+ -------+| ?<15 (or dialysis) ? ?| ?Stage five ? | ? Stage five ?+ ---+ ---+ -------+ *Each stage assumes the associated GFR level has been in effect for at least three months. ?Stages 1 to 5, with or without kidney disease, indicate chronic kidney disease. Notes: Determination of stages one and two (with eGFR >59mL/min/1.73 m2) requires estimation of kidney damage for at least three months as defined by structural or functional abnormalities of the kidney, manifested by either:Pathological abnormalities or Markers of kidney damage (including abnormalities in the composition of the blood or urine or abnormalities in imaging tests). Lab Interpretation (test code = 11425-0) Abnormal [facility] WITH [id number] 10:01:00* Test Item Value Reference Range Interpretation Comme nts WBC (test code = 6690-2) See_Comment H [Automated messa ge] The system which generated this result transmitted reference range: 4.20 - 10.70 10*3/?L. The reference range was not used to interpret this result as normal/abnormal. RBC (test code = 789-8) See_Comment L [Automated messa ge] The system which generated this result transmitted reference range: 4.26 - 5.52 10*6/?L. The reference range was not used to interpret this result as normal/abnormal. HGB (test code = 718-7) 12.1 g/dL 12.2-16.4 L HCT (test code = 4544-3) 37.4 % 38.4-49.3 L MCV (test code = 787-2) 96.4 fL 81.7-95.6 H MCH (test code = 785-6) 31.2 pg 26.1-32.7 MCHC (test code = 786-4) 32.4 g/dL 31.2-35 RDW-SD (test code = 94788-8) 54.5 fL 38.5-51.6 H RDW-CV (test code = 788-0) 15.4 % 12.1-15.4 PLT (test code = 777-3) See_Comment H [Automated messa ge] The system which generated this result transmitted reference range: 150 - 328 10*3/?L. The reference range was not used to interpret this result as normal/abnormal. MPV (test code = 52160-7) 8.5 fL 9.8-13 L NRBC/100 WBC (test code = 5099734121) See_Comment [Automated me ssage] The system which generated this result transmitted reference range: 0.0 - 10.0 /100 WBCs. The reference range was not used to interpret this result as normal/abnormal. NRBC x10^3 (test code = 1197829418) <0.01 See_Comment [Automated messa ge] The system which generated this result transmitted reference range: 10*3/?L. The reference range was not used to interpret this result as normal/abnormal. GRAN MAT (NEUT) % (test code = 770-8) 63.8 % IMM GRAN % (test code = 7266054189) 5.50 % LYMPH % (test code = 736-9) 20.0 % MONO % (test code = 5905-5) 8.5 % EOS % (test code = 713-8) 1.6 % BASO % (test code = 706-2) 0.6 % GRAN MAT x10^3(ANC) (test code = 5504966113) 8.31 10*3/uL 1.99-6.95 H IMM GRAN x10^3 (test code = 1119243987) 0.71 10*3/uL 0-0.06 H LYMPH x10^3 (test code = 731-0) 2.60 10*3/uL 1.09-3.23 MONO x10^3 (test code = 742-7) 1.11 10*3/uL 0.36-1.02 H EOS x10^3 (test code = 711-2) 0.21 10*3/uL 0.06-0.53 BASO x10^3 (test code = 704-7) 0.08 10*3/uL 0.01-0.09 Lab Interpretation (test code = 45477-7) Abnormal [facility] METABOLIC PANEL (NA, K, CL, CO2, GLUCOSE, BUN, CREATININE, CA)2019-12-14 08:40:00* Test Item Value Reference Range Interpretation Comme nts NA (test code = 0728586281) 138 mmol/L 135-145 K (test code = 7005375036) 4.5 mmol/L 3.5-5 Slight hemolysis CL (test code = 2854816743) 109 mmol/L 98-108 H CO2 TOTAL (test code = 7401199144) 22 mmol/L 23-31 L AGAP (test code = 2744392494) 2-16 BUN (test code = 2587386373) 15 mg/dL 7-23 Slight hemolysis GLUCOSE (test code = 6785041532) 95 mg/dL 70-110 CREATININE (test code = 6150603003) 0.75 mg/dL 0.6-1.25 CALCIUM (test code = 8308497922) 7.7 mg/dL 8.6-10.6 L eGFR Calculation (Non-) (test code = 8503825113) mL/min/1.73m2 eGFR Calculation () (test code = 1458016051) mL/min/1.73m2 DORIAN (test code = DORIAN) Association of Glomerular Filtration Rate (GFR) and Staging of Kidney Disease* + -----+ --------+ +| GFR (mL/min/1.73 m2) ?| With Kidney Damage ?| ?Without Kidney Damage+ +------- +---- --+| ?>90 ?| ?Stage one ?| ? Normal ?+ ------+ ---------+--------- +| ?60-89 ?| ?Stage two ?| ? Decreased GFR ? + -----+ --------+ +| ?30-59 ?| ?Stage three ?| ? Stage three ? + -----+ --------+ +| ?15-29 ?| ?Stage four ? | ? Stage four ?+ ------+ ---------+--------- +| ?<15 (or dialysis) ? ?| ?Stage five ? | ? Stage five ?+ ------+ ---------+--------- + *Each stage assumes the associated GFR level has been in effect for at least three months. ?Stages 1 to 5, with or without kidney disease, indicate chronic kidney disease. Notes: Determination of stages one and two (with eGFR >59mL/min/1.73 m2) requires estimation of kidney damage for at least three months as defined by structural or functional abnormalities of the kidney, manifested by either:Pathological abnormalities or Markers of kidney damage (including abnormalities in the composition of the blood or urine or abnormalities in imaging tests). Lab Interpretation (test code = 99352-1) [facility] - Please order a vancomycin trough on 12/12 at 0815 before the dose that isscheduled at 0845 2019-12-13 13:51:00* Test Item Value Reference Range Interpretation Comme nts VANCO TROUGH (test code = 8512961948) 11.2 ug/mL 10-20 DORIAN (test code = DORIAN) Toxic Range: ?>20 ug/mL 15-20 ug/mL is recommended for severe infection or when Vancomycin AZAM is greater than or equal to 2. Lab Interpretation (test code = 96400-7) Normal [facility] WITH QPCV9930-07-03 10:39:00* Test Item Value Reference Range Interpretation Comme nts WBC (test code = 6690-2) See_Comment H [Automated message] The system which generated this result transmitted reference range: 4.20 - 10.70 10*3/?L. The reference range was not used to interpret this result as normal/abnormal. RBC (test code = 789-8) See_Comment L [Automated message] The system which generated this result transmitted reference range: 4.26 - 5.52 10*6/?L. The reference range was not used to interpret this result as normal/abnormal. HGB (test code = 718-7) 11.0 g/dL 12.2-16.4 L HCT (test code = 4544-3) 33.6 % 38.4-49.3 L MCV (test code = 787-2) 95.7 fL 81.7-95.6 H MCH (test code = 785-6) 31.3 pg 26.1-32.7 MCHC (test code = 786-4) 32.7 g/dL 31.2-35 RDW-SD (test code = 07111-7) 57.1 fL 38.5-51.6 H RDW-CV (test code = 788-0) 16.2 % 12.1-15.4 H PLT (test code = 777-3) See_Comment H [Automated message] The system which generated this result transmitted reference range: 150 - 328 10*3/?L. The reference range was not used to interpret this result as normal/abnormal. MPV (test code = 19909-8) 9.1 fL 9.8-13 L NRBC/100 WBC (test code = 4792635729) See_Comment [Automated message] The system which generated this result transmitted reference range: 0.0 - 10.0 /100 WBCs. The reference range was not used to interpret this result as normal/abnormal. NRBC x10^3 (test code = 9032329656) <0.01 See_Comment [Automated message] The system which generated this result transmitted reference range: 10*3/?L. The reference range was not used to interpret this result as normal/abnormal. GRAN MAT (NEUT) % (test code = 770-8) 88.7 % IMM GRAN % (test code = 9958380230) 1.70 % LYMPH % (test code = 736-9) 5.2 % MONO % (test code = 5905-5) 4.1 % EOS % (test code = 713-8) 0.0 % BASO % (test code = 706-2) 0.3 % GRAN MAT x10^3(ANC) (test code = 1957117623) 18.72 10*3/uL 1.99-6.95 H IMM GRAN x10^3 (test code = 5071184138) 0.35 10*3/uL 0-0.06 H LYMPH x10^3 (test code = 731-0) 1.09 10*3/uL 1.09-3.23 MONO x10^3 (test code = 742-7) 0.87 10*3/uL 0.36-1.02 EOS x10^3 (test code = 711-2) <0.03 0.06-0.53 L BASO x10^3 (test code = 704-7) 0.06 10*3/uL 0.01-0.09 BANDS (test code = 6293332451) Increased A DOHLE BODIES (test code = 7792-5) Present A Lab Interpretation (test code = 00930-1) [facility] (53884)2019-12-12 10:29:00* Test Item Value Reference Range Interpretation Comme nts NA (test code = 0522298234) 140 mmol/L 135-145 K (test code = 6282579080) 4.8 mmol/L 3.5-5 CL (test code = 3936122718) 104 mmol/L 98-108 CO2 TOTAL (test code = 9968142389) 31 mmol/L 23-31 AGAP (test code = 8623676828) 2-16 BUN (test code = 1584845169) 21 mg/dL 7-23 GLUCOSE (test code = 0886236993) 117 mg/dL 70-110 H CREATININE (test code = 8864999279) 0.90 mg/dL 0.6-1.25 TOTAL BILI (test code = 8020973783) 0.3 mg/dL 0.1-1.1 CALCIUM (test code = 1877813811) 7.7 mg/dL 8.6-10.6 L T PROTEIN (test code = 0671835052) 5.9 g/dL 6.3-8.2 L ALBUMIN (test code = 1430697358) 2.7 g/dL 3.5-5 L ALK PHOS (test code = 6952685602) 185 U/L 34-122 H ALTv (test code = 1742-6) 40 U/L 5-50 AST(SGOT) (test code = 2397144370) 36 U/L 13-40 eGFR Calculation (Non-) (test code = 2839893835) mL/min/1.73m2 eGFR Calculation () (test code = 5055615960) mL/min/1.73m2 DORIAN (test code = DORIAN) Association of Glomerular Filtration Rate (GFR) and Staging of Kidney Disease* + --+ --+ ------+| GFR (mL/min/1.73 m2) ?| With Kidney Damage ?| ?Without Kidney Damage+ --------+ --------+ +| ?>90 ?| ?Stage one ?| ? Normal ?+ ---+ ---+ -------+| ?60-89 ?| ?Stage two ?| ? Decreased GFR ? + --+ --+ ------+| ?30-59 ?| ?Stage three ?| ? Stage three ? + --+ --+ ------+| ?15-29 ?| ?Stage four ? | ? Stage four ?+ ---+ ---+ -------+| ?<15 (or dialysis) ? ?| ?Stage five ? | ? Stage five ?+ ---+ ---+ -------+ *Each stage assumes the associated GFR level has been in effect for at least three months. ?Stages 1 to 5, with or without kidney disease, indicate chronic kidney disease. Notes: Determination of stages one and two (with eGFR >59mL/min/1.73 m2) requires estimation of kidney damage for at least three months as defined by structural or functional abnormalities of the kidney, manifested by either:Pathological abnormalities or Markers of kidney damage (including abnormalities in the composition of the blood or urine or abnormalities in imaging tests). Lab Interpretation (test code = 39900-8) Abnormal [facility] HospitalCT PELVIS W DJUVSWSK4664-31-35 00:46:001. 4.3 x 2.6 cm fluid collection in the left ischiorectal fossa extendsalong the lower rectum and anal area into the gluteal fat adjacent to thegluteal crease. This collection appears to be separate from the anus.Diffuse inflammatory congestion is seen in the subcutaneous fat of thegluteal crease suggestive of marked degree of cellulitis. EXAM: CT scan of the pelvis with contrast HISTORY: Perianal abscess and cellulitis TECHNIQUE:5 mm axial images are obtained from just above the iliac creststothe proximal femora following intravenous administration of 100 ml ofOmnipaque 350. Sagittal and coronal reformation is carried out. COMPARISON: None Radiation Dose: DLP of 1065 mGy-cm. FINDINGS: Thedistal abdominal abdominal aorta and iliac vessels are normal in size.No enlarged lymph nodes are seen in the visualized retroperitoneum. No freefluid is seen in the pelvis. The visualized bowel loops are normal incaliber. Moderate amount of stool is seen in the colon. The prostate gland and the urinary bladder appears to be normal. Approximately 4.3 cm in CC dimensions and 2.6 cm in transverse di mensionfluid collection is seen in the left ischiorectal fossa with inflammatorycongestion seen in the ischiorectal. Fat extending along the lower rectumand anus into the subcutaneous fat of the leftmedial buttock. The fatplane between the anus and the fluid collection is preserved. [facility], Radiant Results Inft User - 12/10/2019 7:47 PM CDTEXAM: CT scan of the pelvis with contrastHISTORY: Perianalabscess and cellulitisTECHNIQUE:5 mm axial images are obtained from just above the iliac creststo the proximal femora following intravenous administration of 100 ml ofOmnipaque 350. Sagittal and coronal reformation is carried out.COMPARISON: NoneRadiation Dose: DLP of 1065 mGy-cm. FINDINGS:The distal abdominal abdominal aorta and iliac vessels are normal in size.No enlarged lymph nodes are seen in the visualized retroperitoneum. No freefluid is seen in the pelvis. The visualized bowel loops arenormal incaliber. Moderate amount of stool is seen in the colon.The prostate gland and the urinary bladder appears to be normal.Approximately 4.3 cm in CC dimensions and 2.6 cm in transverse dimensionfluid collection is seen in the left ischiorectal fossa with inflammatorycongestion seen in the ischiorectal. Fat extending along the lower rectumand anus into the subcutaneous fat of the left medialbuttock. The fatplane between the anus and the fluid collection is preserved.IMPRESSION1. 4.3 x 2.6cm fluid collection in the left ischiorectal fossa extendsalong the lower rectum and anal area intothe gluteal fat adjacent to thegluteal crease. This collection appears to be separate from the anus.Diffuse inflammatory congestion is seen in the subcutaneous fat of thegluteal crease suggestive of marked degree of cellulitis.[facility] WITH AKYK3467-75-08 00:26:00* Test Item Value Reference Range Interpretation Comme nts WBC (test code = 6690-2) See_Comment H [Automated message] The system which generated this result transmitted reference range: 4.20 - 10.70 10*3/?L. The reference range was not used to interpret this result as normal/abnormal. RBC (test code = 789-8) See_Comment L [Automated message] The system which generated this result transmitted reference range: 4.26 - 5.52 10*6/?L. The reference range was not used to interpret this result as normal/abnormal. HGB (test code = 718-7) 12.7 g/dL 12.2-16.4 HCT (test code = 4544-3) 38.1 % 38.4-49.3 L MCV (test code = 787-2) 95.0 fL 81.7-95.6 MCH (test code = 785-6) 31.7 pg 26.1-32.7 MCHC (test code = 786-4) 33.3 g/dL 31.2-35 RDW-SD (test code = 56584-7) 57.0 fL 38.5-51.6 H RDW-CV (test code = 788-0) 16.2 % 12.1-15.4 H PLT (test code = 777-3) See_Comment H [Automated message] The system which generated this result transmitted reference range: 150 - 328 10*3/?L. The reference range was not used to interpret this result as normal/abnormal. MPV (test code = 15733-4) 9.3 fL 9.8-13 L NRBC/100 WBC (test code = 9325061134) See_Comment [Automated message] The system which generated this result transmitted reference range: 0.0 - 10.0 /100 WBCs. The reference range was not used to interpret this result as normal/abnormal. NRBC x10^3 (test code = 9612872181) <0.01 See_Comment [Automated message] The system which generated this result transmitted reference range: 10*3/?L. The reference range was not used to interpret this result as normal/abnormal. GRAN MAT (NEUT) % (test code = 770-8) 86.1 % IMM GRAN % (test code = 4546705707) 1.20 % LYMPH % (test code = 736-9) 7.0 % MONO % (test code = 5905-5) 4.7 % EOS % (test code = 713-8) 0.4 % BASO % (test code = 706-2) 0.6 % GRAN MAT x10^3(ANC) (test code = 8889154788) 22.11 10*3/uL 1.99-6.95 H IMM GRAN x10^3 (test code = 3919403437) 0.31 10*3/uL 0-0.06 H LYMPH x10^3 (test code = 731-0) 1.79 10*3/uL 1.09-3.23 MONO x10^3 (test code = 742-7) 1.22 10*3/uL 0.36-1.02 H EOS x10^3 (test code = 711-2) 0.11 10*3/uL 0.06-0.53 BASO x10^3 (test code = 704-7) 0.15 10*3/uL 0.01-0.09 H BANDS (test code = 9169443550) MARKED INCREASED A DOHLE BODIES (test code = 7792-5) Present A Lab Interpretation (test code = 30549-7) [facility]normal [facility] HospitalCOVID[facility] (ID NOW RAPID TESTING)2019-12-11 00:20:00* Test Item Value Reference Range Interpretation Comme nts SARS-CoV-2 Rapid ID NOW (test code = 64593-2) Not Detected Not Detected DORIAN (test code = DORIAN) ID NOW COVID-19 As say is an isothermal nucleic acid amplification test intended for the qualitative detection of nucleic acid from SARS-CoV-2 viral RNA in 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 It is used under Emergency Use Authorization (EUA) by FDA. The limit of detection (LOD) of the assay is 125 Genome Equivalents/mL. A positive result is indicative of the presence of SARS-CoV-2 RNA. ?Clinical correlation with patient history and other diagnostic information is necessary to determine patient infection status. A negative (Not Detected) result does not preclude SARS-CoV-2 infection. In patients with clinical symptoms and other tests that are consistent with SARS-CoV-2 infection, negative results should be treated as presumptive negative and a new specimen should be tested with alternative PCR molecular test. Invalid: Please collect a new specimen for repeat patient testing if clinically indicated. Lab Interpretation (test code = 00830-8) Normal [facility] METABOLIC PANEL (NA, K, CL, CO2, GLUCOSE, BUN, CREATININE, CA)2019-12-11 00:06:00* Test Item Value Reference Range Interpretation Comme nts NA (test code = 5436065125) 139 mmol/L 135-145 K (test code = 9946415130) 4.0 mmol/L 3.5-5 CL (test code = 2416862721) 100 mmol/L 98-108 CO2 TOTAL (test code = 7995302648) 29 mmol/L 23-31 AGAP (test code = 8480880132) 2-16 BUN (test code = 7101914330) 28 mg/dL 7-23 H GLUCOSE (test code = 7584595926) 100 mg/dL 70-110 CREATININE (test code = 6767839382) 1.05 mg/dL 0.6-1.25 CALCIUM (test code = 4587938774) 8.4 mg/dL 8.6-10.6 L eGFR Calculation (Non-) (test code = 6697520396) mL/min/1.73m2 eGFR Calculation () (test code = 5818066078) mL/min/1.73m2 DORIAN (test code = DORIAN) Association of Glomerular Filtration Rate (GFR) and Staging of Kidney Disease* + --+ --+ ------+| GFR (mL/min/1.73 m2) ?| With Kidney Damage ?| ?Without Kidney Damage+ --------+ --------+ +| ?>90 ?| ?Stage one ?| ? Normal ?+ ---+ ---+ -------+| ?60-89 ?| ?Stage two ?| ? Decreased GFR ? + --+ --+ ------+| ?30-59 ?| ?Stage three ?| ? Stage three ? + --+ --+ ------+| ?15-29 ?| ?Stage four ? | ? Stage four ?+ ---+ ---+ -------+| ?<15 (or dialysis) ? ?| ?Stage five ? | ? Stage five ?+ ---+ ---+ -------+ *Each stage assumes the associated GFR level has been in effect for at least three months. ?Stages 1 to 5, with or without kidney disease, indicate chronic kidney disease. Notes: Determination of stages one and two (with eGFR >59mL/min/1.73 m2) requires estimation of kidney damage for at least three months as defined by structural or functional abnormalities of the kidney, manifested by either:Pathological abnormalities or Markers of kidney damage (including abnormalities in the composition of the blood or urine or abnormalities in imaging tests). Lab Interpretation (test code = 96488-3) Abnormal [facility] HospitalLactic Acid Whole Qzmjp2785-66-03 23:53:00* Test Item Value Reference Range Interpretation Comme nts LACTIC ACID (test code = 7681383426) 1.94 mmol/L [facility]ST 2 VW FYCTH3983-50-25 15:03:14Addendum by Kingston Dior DO on 07/07/2019 10:09 AM* * * * * * * * ADDENDUM: * * * * * * * *Addnendum should read as: Right apical nodular pleural/subpleural thickening with adjacent reticularopacities, could represent typical or atypical infectious process,scarring, and/or lung nodule. Recommend follow-up radiograph in 4-6 weeks to ensure resolution. Ifunchanged or not resolved a follow-up, r ecommend CT chest to furthercharacterize. Right apical nodular pleural/subpleural thickening with adjacent reticularopacities, could represent atypical infectious process, scarring, and/orlung nodule. Recommend follow-up radiograph in 4-6 weeks to ensure resolution. Ifunchanged or not resolved a fol low-up, recommend CT chest to furthercharacterize. Preliminary Report Dictated by Resident: Kingston Tam MD., have reviewed this study and agree with the abovereport.PROCEDURE: CHEST XRAY 2 views, CLINICAL INDICATION: cough, sob, fever COMPARISON: None FINDINGS: Lungs/Pleura: There is right apical pleural/subpleural nodular thickeningmeasuring approximately 1.8 cm with adjacent reticular opacities. No pneumothorax or pleural effusion. Heart/vessels: The heart is normal in size. Bones: No acute bony abnormality. [facility], Radiant Results Inft User - 07/07/2019 10:04 AM CDTPROCEDURE: CHEST XRAY 2 views, CLINICAL INDICATION: cough, sob, fever COMPARISON: NoneFINDINGS:Lungs/Pleura: There is right apical pleural/subpleural nodular thickeningmeasuring approximately 1.8 cm with adjacent reticular opacities.No pneumothorax or pleural effusion.Heart/vessels: The heart is normal in siz e.Bones: No acute bony abnormality.IMPRESSIONRight apical nodular pleural/subpleural thickening with adjacent reticularopacities, could represent atypical infectious process, scarring, and/orlung nodule.Recommend follow-up radiograph in 4-6 weeks to ensure resolution. Ifunchanged or not resolved a f ollow-up, recommend CT chest to furthercharacterize.Preliminary Report Dictated by Resident: Kingston Tam MD., have reviewed this study and agree with the abovereport.[facility] Notes Date/Time Note Provider Source 2023-02-23 10:14:16 JjmDuaWzxjXxURJSp1IX Z4aD3B298O3N Z1XddFNYmun74HRZDlHc/hqfHzzKM5J6 5720-61-47H43:14:16 Images from the original note were not included.gabapentin 800 mg tabletSig: N/ADisp: 90 tablet Refills: 0Start: 4Class: eRXFor: Neck pain, ArthritisLast ordered: 4 weeks ago (01/26/2023) by Isrrael South MDNeuropathic Pain Zivwyg4902/23/2023 09:58 AMProtocol Details Manual Review: Verify no changes in dose in the last 3 monthsValid encounter within last 12 monthsTo be filled at: [id number] - [place], [place] - [address] [facility] [address] [id number] N/A 94448-8Ujxsnizbq encounter SdhaDQ0044-04-78A37:14:52Telepho ne encounter NoteTXT1.2.840.715685.1.13.104.2 .7.2.416346|[id number] e for patient uysk08011-5JbqlMHREDZIYIOOYazdfj ingris C-CDA narrative [id number] M Serrano [address] GtyhSfuiabsbxHoylmfsyaWQDG307096 3510TAILQORDWVTEQYZEPSZSJC8185-2 02-23T10:14:521.2.840.897426.1.72 .3.15|1.2.840.159458.1.13.104.2. 7.2.727879_[id number] Hali Roy [facility] 2023-02-23 09:57:18 0HR8qTbYrfGgyE1icM4t 4a3+BHiYbFAj qOyGZ49zZonq+aFEd7Bz1UloeYaS+V2a 7710-23-52T36:57:18 Images from the original note were not included. 48933-6Kmfhxwbbo encounter OqwrSG4596-60-08Z51:58:10Telepho ne encounter NoteTXT1.2.840.066133.1.13.104.2 .7.2.916577|[id number] e for patient uwnl39756-6TxyqPPYMHMVKKVJEfntpm ingris C-CDA narrative text[address] 2327WSUTLPDREEJZSQUKSKDGSD2009-3 02-23T09:58:101.2.840.334944.1.72 .3.15|1.2.840.438762.1.13.104.2. 7.2.727879_[id number] [facility] 2023-02-08 10:37:40 HTFxz78b8Q96f1L2RkPA 3xy8nOr0CWN6 VzHvkeNyv2xqv4F2DucRBx6ulrZ3yXPK 3145-76-16O64:37:40 2nd attempt/patient not accepting calls at this time. Could not LVM. 74939-9Thzicsepy encounter MgckSF2803-25-68C69:38:23Telepho ne encounter NoteTXT1.2.840.775347.1.13.104.2 .7.2.340090|[id number] e for patient hppa07547-2PhhvMZYRCUQLJIMBhqmar ingris C-CDA narrative [id number] RodriguezUT[address]TXTX[address] 9048MGDORYFSJNFPGAZTFFGIEL7504-9 04-11T10:38:231.2.840.174636.1.72 .3.15|1.2.840.943540.1.13.104.2. 7.2.727879_[id number] Vee Luna [facility] 2023-02-06 08:41:45 nSVzna/US5xYIm1WK9Gl UFY1zjX1rOeL E8OTJX9e5sL5BOxMIJ++rv8A7K9xHyQJ 7175-01-17U67:41:45 Called pt number on file not accepting calls at this time. 06728-0Xjzyoxzfm encounter OvqjWO1628-11-36B09:42:16Telepho ne encounter NoteTXT1.2.840.250870.1.13.104.2 .7.2.314122|[id number] e for patient okuc07682-2LfqoMJJBTUXHVNMBgzqew ingris C-CDA narrative rbct863178897Ctvxnec D [address] 1757MHYEFYCEKWPAXLJQWCVLWG9509-0 2-19T08:42:161.2.840.472430.1.72 .3.15|1.2.840.305184.1.13.104.2. 7.2.727879_[id number] Jackeline Leon [facility] 2023-01-26 18:30:04 hP4m6ePyPMZFTkacPL8k xYDuzJkgdHql 0dOKuYoOQiToDOQQHowmr7cUEU88q34h 1685-37-71V23:30:04 Medication was refilled x 1, but an appointment is needed for additional refills. 53874-0Bfwvzccyn encounter MfdlUI9262-96-76V33:30:04Telepho ne encounter NoteTXT1.2.840.824204.1.13.104.2 .7.2.338297|[id number] e for patient qrhu88987-5OerqGWIZQRXJXDARpvytk ingris C-CDA narrative text[address] 2830BUAZMKXBALKFOALPCUPYCK1994-5 :30:041.2.840.856184.1.72 .3.15|1.2.840.081429.1.13.104.2. 7.2.727879_[id number] [facility] 2023-01-26 14:20:44 1chSxGoSJy1PcIB/N/aF UbxLRB1+ypro jrR6gnlaqPa6LYZ1jRgfVOVvk0CAizpD 8197-21-56R31:20:44 Images from the original note were not included.Last OV: 09/27/2022 with Belen Branham Refill: 09/27/2022 prescribed by Belen Branham Labs Pertaining to Med:N/AFuture Appt: noneRouted to provider for review. Unable to refill per ambulatory refill guidelines.Name from pharmacy: GABAPENTIN 800MG TABLETSWill file in chart as: GABAPENTIN 800 mg tabletSig: TAKE 1 TABLET BY MOUTH EVERY MORNING, 1 TABLET AT NOON AND 1 TABLET EVERY EVENINGDisp: 90 tablet Refills: 3 (Pharmacy requested: Not specified)Start: 01/25/2023lass: eRXFor: Neck pain, ArthritisLast ordered: 4 months ago (09/27/2022) by Tammie Posada refill: 01/01/2023Rx #: [id number]|1|0|1Neuropathic Pain Xllvwo9701/25/2023 09:35 AMProtocol Details Manual Review: Verify no changes in dose in the last 3 monthsValid encounter within last 12 months 08472-5Xjmdnevnq encounter IqvqIF2802-88-64X19:22:04Telepho ne encounter NoteTXT1.2.840.796531.1.13.104.2 .7.2.874231|[id number] e for patient iuxi63243-4EdwqHRHOCFOVQFKMeulhr ingris C-CDA narrative znhr730363442Krxmndj A Nelson RNUT[address]vdGalvestonGal[place] 6462YRIOVBBPFWCUMJZRYRPTZI7573-7 4:22:041.2.840.165825.1.72 .3.15|1.2.840.566152.1.13.104.2. 7.2.727879_[id number] Valerie Wooten Enrike RN [facility] 2022-09-27 10:15:00 NmnzQZZa2bKDzzSGYwjH /svp programmatic tv+d4pPBmmS d73ECMqHiGRJRF4abznkwwsTPyvAD3pZ 0467-58-87O76:15:00 Images from the original note were not included.Venipuncture collection performed by clean technique on the left anticubitus. Total of 1 attempts were made. Slight pressure and a bandage/dressing were applied to the site(s). The patient experienced no complications. The following specimens were processed according to instructions and sent to [facility] laboratories per lab order on 09/27/2022: LT BLUE SST 2 RED LAV 2 PPT DK GREEN (LiHep) DK GREEN (SodH) GERMAN DK BLUE (K2) DK BLUE (S) ACD Blood Culture NIPT/NTD 07983-3Ujytq JrtvTR1637-59-21Y53:26:46Nurse NoteTXT1.2.840.508941.1.13.104.2 .7.2.895782|[id number] e for patient bwdo14754-8Xfjdd NoteLNUT[address]vdGalveston[place] 9232FRSBUKVAAVYAMZZHWTBMRH3937-8 09:26:461.2.840.443890.1.72 .3.15|1.2.840.614155.1.13.104.2. 7.2.727879_[id number] [facility] 2022-09-26 08:12:33 6OOg3VYHS18pOpqCrFnc Shady/YqA9xK8K z71e8UcbfAndoRITxhD4bkR73sweDdkq 5208-51-40I97:12:33 Pt called clinic and requested a refill of Gabapentin stating he is completely out of this medication. Let pt know that I would send his request to the nurse as a refill request Please advise. 62133-5Aglsfxnho encounter RphrGP8917-35-86H92:13:57Telepho ne encounter NoteTXT1.2.840.382319.1.13.104.2 .7.2.544557|[id number] e for patient oktz49772-4WkfnISQWXHZPGU[address] LxnnKyedmdayxDojdasegfZVES037695 8070IIOZRFNPZCGETOZUYQGODE1181-7 08:13:571.2.840.198416.1.72 .3.15|1.2.840.993695.1.13.104.2. 7.2.727879_[id number] [facility]"
--- NOTE | 2023-04-11 15:48 | RAD REPORT ---
EXAM DESCRIPTION: RAD - Lumbar Spine 3 Views - 04/11/2023 3:32 pm CLINICAL HISTORY: PAIN COMPARISON: No comparisons FINDINGS/IMPRESSION: No acute fracture. No malalignment. Severe disc height loss and endplate sclero sis at L4-5. Mild disc height loss at the other levels and mild anterior spurring.
--- NOTE | 2023-04-11 16:04 | EDPHYS ---
Physician Documentation [facility] Name: Manolo Wood Age: 57 yrs Sex: Male : 1965 Arrival Date: 04/11/2023 Time: 13:53 Bed 12 Private MD: ED Physician Storm Jacobsen HPI: 04/11 15:26 This 57 yrs old Male presents to ER via Ambulatory with complaints of Hip Pain. kb 15:26 Pt reports pain to left low back/buttock that radiates down back of left leg for 2 kb weeks. States he was clearing brush just before the pain started. Denies injury or trauma. went to PCP today and was told to come to the ER because they couldn't help him. PCP wrote prescriptions for medrol dose pack and flexeril as well as ordered x-ray and MRI of lumbar spine. Pt requests the x-ray be done while he is here. . Historical: - Allergies: 14:09 No Known Allergies; db - PMHx: 14:09 COPD; db - PSHx: 14:09 back sx; db - Immunization history:: Adult Immunizations unknown. - Social history:: Smoking status: Patient denies any tobacco usage or history of. ROS: 15:24 Constitutional: Negative for fever, chills, and weight loss, kb 15:24 Back: Positive for pain at rest, pain with movement, radiated pain, of the left low back, 15:24 All other systems are negative, Exam: 15:24 Constitutional: This is a well developed, well nourished patient who is awake, alert, kb and in no acute distress. Head/Face: Normocephalic, atraumatic. ENT: Moist Mucous membranes Cardiovascular: Regular rate Respiratory: Respirations even and unlabored. No increased work of breathing. Talking in full sentences Abdomen/GI: Soft, non-tender. No distention Skin: Warm, dry with normal turgor. Normal color. MS/ Extremity: Pulses equal, no cyanosis. Neurovascular intact. Full, normal range of motion. Neuro: Awake and alert, GCS 15, oriented to person, place, time, and situation. Moves all extremities. Normal gait. 15:24 Back: pain, that is moderate, of the left low back, ROM is painful, normal spinal alignment noted, CVA tenderness, is absent, vertebral tenderness, is not appreciated, Vital Signs: 14:06 BP 146 / 85; Pulse 65; Resp 18; Temp 97.9(TE); Pulse Ox 94% on R/A; Weight 72.57 kg; db Height 5 ft. 8 in. ; 14:06 Body Mass Index 24.33 (72.57 kg, 172.72 cm) db MDM: 13:56 Patient medically screened. kb 15:24 Differential diagnosis: bursitis, arthritis, strain, sciatica. Data reviewed: vital kb signs, nurses notes. Counseling: I had a detailed discussion with the patient and/or guardian regarding the historical points, exam findings, and any diagnostic results supporting the discharge/admit diagnosis, radiology results, the need for outpatient follow up, a family practitioner, to return to the emergency department if symptoms worsen or persist or if there are any questions or concerns that arise at home. 04/11 14:05 Order name: Lumbar Spine (3 Views) XRAY; Complete Time: 16:03 kb Administered Medications: 14:23 Drug: Dexamethasone IM 10 mg IM once Route: IM; Site: right deltoid; me1 14:44 Follow up: Response: No adverse reaction me1 14:23 Drug: Ketorolac IM 30 mg IM once Route: IM; Site: left deltoid; me1 16:04 Follow up: Response: No adverse reaction; Pain is decreased me1 14:23 Drug: [place] PO 10 mg-325 mg 1 tabs PO once Route: PO; me1 16:04 Follow up: Response: Pain is decreased me1 16:04 Follow up: Response: No adverse reaction me1 Disposition Summary: 04/11/23 16:03 Discharge Ordered Notes: Location: Home kb Condition: Stable kb Diagnosis - Sciatica, left side kb Followup: kb - With: Emergency Department - When: As needed - Reason: Worsening of condition Followup: kb - With: Private Physician - When: 2 - 3 days - Reason: Recheck today's complaints, Continuance of care, Re-evaluation by your physician Discharge Instructions: - Discharge Summary Sheet kb - Sciatica, [id number] kb - Back Exercises, [id number] kb Forms: - Medication Reconciliation Form kb - Thank You Letter kb - Antibiotic Education kb - Prescription Opioid Use kb - Patient Portal Instructions kb - Leadership Thank You Letter kb Addendum: 04/12/2023 18:19 I was immediately available for consultation during this patient's visit. I did not e c2 personally see the patient or discuss the patient with the CARLEE. . Signatures: Dispatcher [employer] Deja Abel, GILBERTO-C GILBERTO-Vandana Coats RN RN db Eddleman, Michelle, RN RN me1 Storm Jacobsen MD MD ec2
--- NOTE | 2023-04-11 16:04 | ER ---
Nurse's Notes [facility] Name: Manolo Wood Age: 57 yrs Sex: Male : 1965 Arrival Date: 04/11/2023 Time: 13:53 Bed 12 Private MD: Diagnosis: Sciatica, left side Presentation: 04/11 14:06 Chief complaint: Patient states: LEFT HIP PAIN WHILE WORKING X 3 WEEKS WITH LOWER BACK db PAIN. DENIES FALL OR INJURY. Coronavirus screen: Client denies travel out of the [place] in the last 14 days. At this time, the client does not indicate any symptoms associated with coronavirus-19. Coronavirus screen: Vaccine status: Patient reports receiving the 2nd dose of the covid vaccine. Ebola Screen: Patient negative for fever greater than or equal to 101.5 degrees Fahrenheit, and additional compatible Ebola Virus Disease symptoms Patient denies exposure to infectious person. Patient denies travel to an Ebola-affected area in the 21 days before illness onset. No symptoms or risks identified at this time. Initial Sepsis Screen: Does the patient meet any 2 criteria? No. Patient's initial sepsis screen is negative. Does the patient have a suspected source of infection? No. Patient's initial sepsis screen is negative. Risk Assessment: Do you want to hurt yourself or someone else? Patient reports no desire to harm self or others. Onset of symptoms was March 22, 2023. 14:06 Method Of Arrival: Ambulatory db 14:06 Acuity: SHERICE 4 db Triage Assessment: 14:09 General: Appears in no apparent distress. uncomfortable, Behavior is calm, cooperative. db Pain: Complains of pain in back and left leg. Neuro: Level of Consciousness is awake, alert, obeys commands, Oriented to person, place, time, situation. Musculoskeletal: Circulation, motion, and sensation intact. Capillary refill < 3 seconds, Range of motion: limited in left hip. Historical: - Allergies: 14:09 No Known Allergies; db - PMHx: 14:09 COPD; db - PSHx: 14:09 back sx; db - Immunization history:: Adult Immunizations unknown. - Social history:: Smoking status: Patient denies any tobacco usage or history of. Screenin:20 [facility] ED Fall Risk Assessment (Adult) History of falling in the last 3 months, me1 including since admission No falls in past 3 months (0 pts) Confusion or Disorientation No (0 pts) Intoxicated or Sedated No (0 pts) Impaired Gait No (0 pts) Mobility Assist Device Used No (0 pt) Altered Elimination No (0 pt) Score/Fall Risk Level 0 - 2 = Low Risk Oriented to surroundings, Provided non-skid footwear, Hourly rounding (assess needs \T\ fall precautionary measures) done. Abuse screen: Denies threats or abuse. Nutritional screening: No deficits noted. Tuberculosis screening: No symptoms or risk factors identified. Assessment: 14:20 General: Appears uncomfortable, well groomed, well developed, well nourished, Behavior me1 is calm, cooperative, appropriate for age, Reports LEFT HIP PAIN WHILE WORKING X 3 WEEKS WITH LOWER BACK PAIN. DENIES FALL OR INJURY. Pain: Complains of pain in left hip and back Pain radiates to left leg Pain currently is 10 out of 10 on a pain scale. Quality of pain is described as burning, sharp, shooting, Pain began 3 weeks ago while working. Is continuous. Neuro: Level of Consciousness is awake, alert, obeys commands, Oriented to person, place, time, situation, Appropriate for age. Cardiovascular: Capillary refill < 3 seconds Patient's skin is warm and dry. Respiratory: Airway is patent Trachea midline Respiratory effort is even, unlabored, Respiratory pattern is regular, symmetrical. Musculoskeletal: Reports pain in left hip and left leg and back since 3 weeks ago. Vital Signs: 14:06 BP 146 / 85; Pulse 65; Resp 18; Temp 97.9(TE); Pulse Ox 94% on R/A; Weight 72.57 kg; db Height 5 ft. 8 in. ; 14:06 Body Mass Index 24.33 (72.57 kg, 172.72 cm) db ED Course: 13:56 Patient arrived in ED. ra3 13:56 Deja Soto FNP-C is [facility]. kb 13:56 Storm Jacobsen MD is Attending Physician. kb 14:09 Triage completed. db 14:09 Arm band placed on. db 14:13 Carin Ambrose, RN is Primary Nurse. me1 14:20 Patient has correct armband on for positive identification. Bed in low position. Call me1 light in reach. Side rails up X 1. Provided Education on: POC. Verbalized understanding. . 14:20 No provider procedures requiring assistance completed. Patient did not have IV access me1 during this emergency room visit. 15:33 Lumbar Spine (3 Views) XRAY In Process Unspecified. EDMS Administered Medications: 14:23 Drug: Dexamethasone IM 10 mg IM once Route: IM; Site: right deltoid; me1 14:44 Follow up: Response: No adverse reaction me1 14:23 Drug: Ketorolac IM 30 mg IM once Route: IM; Site: left deltoid; me1 16:04 Follow up: Response: No adverse reaction; Pain is decreased me1 14:23 Drug: [place] PO 10 mg-325 mg 1 tabs PO once Route: PO; me1 16:04 Follow up: Response: Pain is decreased me1 16:04 Follow up: Response: No adverse reaction me1 Medication: 14:20 VIS not applicable for this client. me1 Outcome: 16:03 Discharge ordered by . angie 16:06 Discharged to home ambulatory, me1 16:06 Condition: stable 16:06 Discharge instructions given to patient, Instructed on discharge instructions, follow up and referral plans. Demonstrated understanding of instructions, follow-up care, 16:07 Patient left the ED. me1 Signatures: Dispatcher [employer] EDMS Deja Soto, PUBLIC WORKS SUPERVISOR-C PUBLIC WORKS SUPERVISOR-CkVandana Domingo, RN RN db Carin Ambrose, RN RN me1 Tessa Damico ra3 Corrections: (The following items were deleted from the chart) 14:09 14:06 Onset of symptoms was April 11, 2023 db db 14:41 14:06 Chief complaint: Patient states: LEFT HIP PAIN WHILE WORKING X 3 WEEKS WITH LOWER me1 BACK PAIN. DENIES FALL OR INJURY db
[2023-04-11 16:29] VITALS: BP 146/85; TEMP 97.9; O2SAT 94
== END ==
LOC: ER 13:53
DX: M54.32 Sciatica, left side (principal)
CPT/HCPCS: 72100; J1100